=== PATIENT | female | born 1955 | race Caucasian/White ===

== ENCOUNTER 2020-03-02 07:19 | Outpatient (REF) | payer MEDICARE, SELFPAY ==
[2020-03-02 11:45] LABS: Alanine Aminotransferase 27 U/L (0-31); Anion Gap 15 (12-20); Aspartate Amino Transferase 18 U/L (5-31); Blood Urea Nitrogen 11 mg/dL (9-16); Carbon Dioxide 31 mmol/L (22-29); Chloride 99 mmol/L (96-108); Cholesterol 212 mg/dL; Estimated Glomerular Filt Rate > 60; Glucose Fasting 173 mg/dL (60-99); HDL Cholesterol 35 mg/dL; LDL Cholesterol Calculated 132 mg/dl; Potassium 4.5 mmol/l (3.3-5.1); Sodium 140 mmol/L (135-145); Triglycerides 228 mg/dL
[2020-03-02 12:06] LABS: Vitamin D 25-OH Total 39.5 ng/mL (>30)
== END 2020-03-02 07:20 | disposition home or self-care (01) ==
LOC: HO.HMGCLDS 07:19
PROVIDERS: PCP Internal Medicine; Visit Provider Internal Medicine
DX: E11.65 Type 2 diabetes mellitus with hyperglycemia (principal); E78.5 Hyperlipidemia, unspecified
CPT/HCPCS: 80048; 80061; 82306; 84450; 84460

== ENCOUNTER 2020-03-06 12:40 | Outpatient (REF) | payer MEDICARE, SELFPAY ==
[2020-03-06 14:06] LABS: MANUAL DIFF FLAG NO
[2020-03-06 14:11] LABS: Basophils Absolute Auto 0.1 X10*3/uL (0.0-0.2); Basophils Percent Auto 0.6 % (0-2); Eosinophils Absolute Auto 0.3 X10*3/uL (0.0-0.4); Eosinophils Percent Auto 2.8 % (0-4); Hematocrit 48.6 % (37-47); Hemoglobin 16.5 g/dl (12.0-16.0); Imm Gran Abs Auto 0.05 X10*3/uL (0.00-0.03); Imm Gran Pct Auto 0.4 % (0.0-0.4); Lymphocytes Absolute Auto 3.5 X10*3/uL (1.2-4.9); Lymphocytes Percent Auto 30.2 % (20-40); Mean Corpuscular Hemoglobin 31.5 pg (27.0-33.0); Mean Corpuscular Volume 92.9 fL (80-98); Mean Platelet Volume 11.5 fL (9.4-12.3); Monocytes Absolute Auto 0.9 X10*3/uL (0.1-1.2); Monocytes Percent Auto 7.7 % (2-11); Neutrophils Absolute Auto 6.7 X10*3/uL (2.0-8.3); Neutrophils Percent Auto 58.3 % (45-73); Platelet Count 202 X10*3/uL (160-400); Red Blood Count 5.23 X10*6/uL (4.20-5.50); Red Cell Distribution Width 11.9 % (11.0-16.0); White Blood Count 11.6 X10*3/uL (4.8-10.8)
== END 2020-03-06 12:41 | disposition home or self-care (01) ==
LOC: HO.HMGCLDS 12:40
PROVIDERS: PCP Internal Medicine; Visit Provider Internal Medicine
DX: Z86.2 Personal history of diseases of the blood and blood-forming organs and certain disorders involving the immune mechanism (principal)
CPT/HCPCS: 36415; 85025

== ENCOUNTER 2020-05-29 06:57 | Outpatient (REF) | payer MEDICARE, SELFPAY ==
[2020-05-29 12:07] LABS: Alanine Aminotransferase 29 U/L (0-31); Anion Gap 20 (12-20); Aspartate Amino Transferase 19 U/L (5-31); Blood Urea Nitrogen 16 mg/dL (9-16); Calcium 9.5 mg/dL (8.4-10.2); Carbon Dioxide 26 mmol/L (22-29); Chloride 100 mmol/L (96-108); Cholesterol 187 mg/dL; Estimated Glomerular Filt Rate > 60; Glucose Fasting 170 mg/dL (60-99); HDL Cholesterol 32 mg/dL; LDL Cholesterol Calculated 126 mg/dl; Potassium 4.8 mmol/l (3.3-5.1); Sodium 141 mmol/L (135-145); Triglycerides 146 mg/dL
[2020-05-29 12:25] LABS: Estimated Average Glucose 160 mg/dL; Hemoglobin A1c % 7.2 %
[2020-05-29 12:30] LABS: Vitamin D 25-OH Total 42.7 ng/mL (>30)
[2020-05-29 13:34] LABS: Creatinine Urine 76.47 mg/dL; Microalbum/Creatinine Ratio Ur 9.1 ug/mg cr
== END 2020-05-29 06:58 | disposition home or self-care (01) ==
LOC: HO.HMGCLDS 06:57
PROVIDERS: PCP Internal Medicine; Visit Provider Internal Medicine
DX: I10 Essential (primary) hypertension (principal); E11.3293 Type 2 diabetes mellitus with mild nonproliferative diabetic retinopathy without macular edema, bilateral; E78.2 Mixed hyperlipidemia; E66.9 Obesity, unspecified; M85.88 Other specified disorders of bone density and structure, other site; Z78.0 Asymptomatic menopausal state
CPT/HCPCS: 36415; 80048; 80061; 82043; 82306; 83036; 84450; 84460

== ENCOUNTER 2020-09-04 07:24 | Outpatient (REF) | payer MEDICARE, SELFPAY ==
[2020-09-04 11:59] LABS: Alanine Aminotransferase 23 U/L (0-31); Anion Gap 16 (12-20); Aspartate Amino Transferase 15 U/L (5-31); Blood Urea Nitrogen 12 mg/dL (9-16); Calcium 9.1 mg/dL (8.4-10.2); Carbon Dioxide 27 mmol/L (22-29); Chloride 100 mmol/L (96-108); Cholesterol 197 mg/dL; Estimated Glomerular Filt Rate > 60; Glucose Fasting 187 mg/dL (60-99); HDL Cholesterol 32 mg/dL; LDL Cholesterol Calculated 128 mg/dl; Potassium 4.5 mmol/L (3.3-5.1); Sodium 138 mmol/L (135-145); Triglycerides 186 mg/dL
[2020-09-04 12:02] LABS: Estimated Average Glucose 163 mg/dL; Hemoglobin A1c % 7.3 %
== END 2020-09-04 07:25 | disposition home or self-care (01) ==
LOC: HO.HMGCLDS 07:24
PROVIDERS: PCP Internal Medicine; Visit Provider Internal Medicine
DX: E11.3293 Type 2 diabetes mellitus with mild nonproliferative diabetic retinopathy without macular edema, bilateral (principal); E78.2 Mixed hyperlipidemia; I10 Essential (primary) hypertension
CPT/HCPCS: 36415; 80048; 80061; 83036; 84450; 84460; 84681

== ENCOUNTER 2020-10-23 07:19 | Outpatient (REF) | payer MEDICARE, SELFPAY ==
--- NOTE | ~2020-10-23 | MM_ITS ---
EXAMINATION: MM SCREENING DIGITAL BREAST TOMOSYNTHESIS, BILATERAL CLINICAL INFORMATION: Screening. Asymptomatic. The lifetime risk of breast cancer based on the Tyrer-Cuzick Model is 5%. COMPARISON: Mammography: 06/22/2019, 03/03/2018, 04/28/2016 TECHNIQUE: Digital breast tomosynthesis is performed in both the craniocaudal and mediolateral oblique views along with computer-aided detection (CAD). Synthesized 2D images are generated from the tomosynthesis. FINDINGS: The breasts are almost entirely fatty (ACR BI-RADS breast composition Category a). Background stromal and fibroglandular densities are stable. Again, there are scattered bilateral punctate round predominantly dermal calcifications. There are no significant masses, abnormal calcifications, or other abnormalities. Parenchymal pattern is similar to prior studies. There are no significant changes. MM/MM tomosynthesis screening BI IMPRESSION: No mammographic evidence of malignancy. ASSESSMENT: BI-RADS 2: Benign RECOMMENDATION: Routine annual mammography screening. This patient's information was entered into a reminder system with a target due date for their next mammogram.
--- NOTE | ~2020-10-23 | MM_ITS ---
EXAMINATION: BONE DENSITOMETRY CLINICAL INDICATION: Screening. COMPARISON: Previous BD dated 05/01/2018 and baseline BD dated 04/28/2016. TECHNIQUE: Using a [employer] DXA System (software version: 13.1) manufactured by [employer], dual-energy x-ray absorptiometry was performed of the lumbar spine and left hip. The images are of good technical quality. Summary results are attached. FINDINGS: AP SPINE L1-L4 (excluding L2 and L3): The data of L1-L4 has been changed to exclude the L2 and L3 vertebral bodies, because degenerative sclerosis at these levels may cause overestimation of lumbar spine density. Current: BMD 0.803 g/cm2, Z-score -2.4, T-score -3.0, osteoporosis, 13.6% decrease from previous, 9.4% decrease from baseline (<5% change is not significant). Prior: BMD 0.929 g/cm2. Baseline: BMD 0.886 g/cm2. LEFT FEMUR, NECK: Current: BMD 0.782 g/cm2, Z-score -1.0, T-score -1.8, osteopenia. Prior: BMD 0.811 g/cm2. Baseline: BMD 0.888 g/cm2. LEFT FEMUR, TOTAL: Current: BMD 0.854 g/cm2, Z-score -0.7, T-score -1.2, osteopenia, 3.9% decrease from previous, 8.8% decrease from baseline (<5% change is not significant). Prior: BMD 0.889 g/cm2. Baseline: BMD 0.936 g/cm2. IDENTIFIED RISK FACTORS: Early menopause, tobacco use (current smoker), secondary osteoporosis. HISTORY OF FRACTURE: None listed. MEDICATIONS: Vitamin D. MM/XR DEXA axial skeleton IMPRESSION: 1. DIAGNOSIS: Osteoporosis based on the lowest T-score value of -3.0 in the lumbar spine applying World Health Organization criteria. 2. 10-YEAR FRACTURE RISK PREDICTION, FRAX: Major osteoporotic fracture (clinical spine, forearm, hip or shoulder) 9.5%. Hip fracture 1.9%. 3. Treatment Recommendations: NOF guidelines recommend consideration for treatment in postmenopausal women and men age 50 and older presenting with the following: -A hip or vertebral (clinical or morphometric) fracture. -T-score less than or equal to -2.5 at the femoral neck or spine after appropriate evaluation to exclude secondary causes. -Low bone mass at the hip or spine and a 10-year fracture probability by FRAX of greater than or equal to 3% for hip fracture or greater than or equal to 20% for major osteoporotic fracture based on the [place] adapted WHO algorithm. 4. Other Recommendations: All treatment decisions require clinical judgment and consideration of individual patient factors, including patient preferences, comorbidities, previous drug use, risk factors not captured in the FRAX model (e.g. frailty, falls, vitamin D deficiency, increased bone turnover, interval significant decline in bone density) and possible under or overestimation of fracture risk by FRAX. Additional medical evaluation for secondary cause of low bone mineral density may be appropriate. FUTURE SCAN RECOMMENDATION: People with diagnosed cases of osteoporosis or at high risk for fracture should have regular bone mineral density tests. For patients eligible for Medicare, routine testing is allowed once every 2 years. The testing frequency can be increased to one year for patients who have rapidly progressing disease, those who are receiving or discontinuing medical therapy to restore bone mass, or have additional risk factors.
== END 2020-10-23 07:20 | disposition home or self-care (01) ==
LOC: HO.MAMMO 07:19
PROVIDERS: PCP Internal Medicine; Visit Provider Internal Medicine
DX: Z12.31 Encounter for screening mammogram for malignant neoplasm of breast (principal); Z13.820 Encounter for screening for osteoporosis; M81.0 Age-related osteoporosis without current pathological fracture; F17.200 Nicotine dependence, unspecified, uncomplicated; Z78.0 Asymptomatic menopausal state; Z79.899 Other long term (current) drug therapy
CPT/HCPCS: 77063; 77067; 77080

== ENCOUNTER 2020-11-10 06:51 | Outpatient (REF) | payer MEDICARE, SELFPAY ==
[2020-11-10 11:58] LABS: Alanine Aminotransferase 19 U/L (0-31); Anion Gap 15 (12-20); Aspartate Amino Transferase 16 U/L (5-31); Blood Urea Nitrogen 12 mg/dL (9-16); Carbon Dioxide 26 mmol/L (22-29); Chloride 104 mmol/L (96-108); Cholesterol 207 mg/dL; Estimated Glomerular Filt Rate > 60; Glucose Fasting 186 mg/dL (60-99); HDL Cholesterol 34 mg/dL; LDL Cholesterol Calculated 139 mg/dl; Potassium 4.6 mmol/L (3.3-5.1); Sodium 140 mmol/L (135-145); Triglycerides 174 mg/dL
[2020-11-10 12:17] LABS: Estimated Average Glucose 157 mg/dL; Hemoglobin A1c % 7.1 %
== END 2020-11-10 06:52 | disposition home or self-care (01) ==
LOC: HO.HMGCLDS 06:51
PROVIDERS: PCP Internal Medicine; Visit Provider Internal Medicine
DX: E78.2 Mixed hyperlipidemia (principal); I10 Essential (primary) hypertension
CPT/HCPCS: 36415; 80048; 80061; 83036; 84450; 84460

== ENCOUNTER 2021-01-01 08:42 | Outpatient (REF) | payer MEDICARE, SELFPAY ==
--- NOTE | ~2021-01-01 | XR_ITS ---
EXAMINATION: XR CHEST CLINICAL INFORMATION: Shortness of breath COMPARISON: Chest radiographs 11/21/2019, 08/18/2014 TECHNIQUE: 2 views of the chest were obtained. FINDINGS: The lungs are clear and there is no airspace consolidation, groundglass opacity, pneumothorax, pleural reaction. The costophrenic sulci are well-defined. Tapering right cardiophrenic angle likely areolar tissue is stable from prior exams. The heart is normal in size. The vascularity is normal. The hilar and mediastinal contours and bony structures are unremarkable. XR/XR chest 2V IMPRESSION: No acute intrathoracic disease.
== END 2021-01-01 08:43 | disposition home or self-care (01) ==
LOC: HO.HMGCX 08:42
PROVIDERS: PCP Internal Medicine; Visit Provider Internal Medicine
DX: R06.02 Shortness of breath (principal)
CPT/HCPCS: 71046

== ENCOUNTER 2021-03-29 06:54 | Outpatient (REF) | payer MEDICARE, SELFPAY ==
[2021-03-29 12:17] LABS: Estimated Average Glucose 140 mg/dL; Hemoglobin A1c % 6.5 %
[2021-03-29 12:33] LABS: Vitamin D 25-OH Total 48.1 ng/mL (>30)
[2021-03-29 12:35] LABS: Alanine Aminotransferase 15 U/L (0-31); Anion Gap 13 (12-20); Aspartate Amino Transferase 13 U/L (5-31); Blood Urea Nitrogen 9 mg/dL (9-16); Calcium 9.1 mg/dL (8.4-10.2); Carbon Dioxide 29 mmol/L (22-29); Chloride 102 mmol/L (96-108); Cholesterol 208 mg/dL; Estimated Glomerular Filt Rate > 60; Glucose Fasting 135 mg/dL (60-99); HDL Cholesterol 33 mg/dL; LDL Cholesterol Calculated 136 mg/dl; Potassium 4.4 mmol/L (3.3-5.1); Sodium 140 mmol/L (135-145); Triglycerides 196 mg/dL
== END 2021-03-29 06:55 | disposition home or self-care (01) ==
LOC: HO.HMGCLDS 06:54
PROVIDERS: PCP Internal Medicine; Visit Provider Internal Medicine
DX: E11.3293 Type 2 diabetes mellitus with mild nonproliferative diabetic retinopathy without macular edema, bilateral (principal); E78.2 Mixed hyperlipidemia; M81.0 Age-related osteoporosis without current pathological fracture; Z78.0 Asymptomatic menopausal state; I10 Essential (primary) hypertension
CPT/HCPCS: 36415; 80048; 80061; 82306; 83036; 84450; 84460

== ENCOUNTER 2021-05-04 08:18 | Outpatient (REF) | payer MEDICARE, SELFPAY ==
--- NOTE | ~2021-05-04 | XR_ITS ---
EXAMINATION: XR SHOULDER, RIGHT CLINICAL INFORMATION: Right shoulder pain. COMPARISON: Report from right shoulder radiographs dated 09/29/2012. TECHNIQUE: AP external rotation, Grashey, scapular Y, and axillary views of the right shoulder. FINDINGS: No acute fracture or dislocation. Camy-en-rgxhwczr glenohumeral joint space narrowing with small marginal osteophytes. Tiny lateral subacromial spurs. No osseous erosion. XR/XR shoulder RT min 2V IMPRESSION: Pkwg-dr-nodkhpri glenohumeral osteoarthritis. Tiny lateral subacromial spurs.
== END 2021-05-04 08:19 | disposition home or self-care (01) ==
LOC: HO.HOSX 08:18
PROVIDERS: Visit Provider Physician Assistant
DX: M75.101 Unspecified rotator cuff tear or rupture of right shoulder, not specified as traumatic (principal)
CPT/HCPCS: 73030; 99202

== ENCOUNTER → 2021-05-13 10:16 | Outpatient (BNVA) | payer MEDICARE, SELFPAY | PROVIDERS: PCP Internal Medicine; Visit Provider Internal Medicine | DX: M81.0 Age-related osteoporosis without current pathological fracture (principal); E55.9 Vitamin D deficiency, unspecified; D35.02 Benign neoplasm of left adrenal gland | CPT/HCPCS: Q3014 ==

== ENCOUNTER 2021-05-19 07:33 | Outpatient (REF) | payer MEDICARE, SELFPAY ==
[2021-05-19 08:58] LABS: Estimated Average Glucose 143 mg/dL; Hemoglobin A1c % 6.6 %
[2021-05-19 09:15] LABS: Alanine Aminotransferase 22 U/L (0-31); Albumin Level 4.9 g/dL (3.5-5.0); Alkaline Phosphatase 88 U/L (39-117); Anion Gap 14 (12-20); Aspartate Amino Transferase 13 U/L (5-31); Bilirubin Total 0.7 mg/dL (0.0-1.0); Blood Urea Nitrogen 9 mg/dL (9-16); Carbon Dioxide 29 mmol/L (22-29); Chloride 101 mmol/L (96-108); Cholesterol 225 mg/dL; Estimated Glomerular Filt Rate > 60; Glucose Fasting 146 mg/dL (60-99); HDL Cholesterol 34 mg/dL; LDL Cholesterol Calculated 151 mg/dl; Phosphorus 3.8 mg/dL (2.7-4.5); Potassium 4.2 mmol/L (3.3-5.1); Sodium 140 mmol/L (135-145); Total Protein 7.7 g/dL (6.5-8.0); Triglycerides 200 mg/dL
[2021-05-19 09:27] LABS: Free T4 (Free Thyroxine) 1.08 ng/dL (0.71-1.85); Thyroid Stimulating Hormone 2.17 uIU/mL (0.32-4.0); Vitamin D 25-OH Total 52.2 ng/mL (>30)
[2021-05-20 12:26] LABS: Calcium (PTHI) 9.8 mg/dL (8.6-10.4); PTHI 17 pg/mL (14-64)
[2021-05-20 17:06] LABS: Prot Elec - Albumin 4.6 g/dL (3.8-4.8); Prot Elec - Alpha1 0.4 g/dL (0.2-0.3); Prot Elec - Alpha2 0.9 g/dL (0.5-0.9); Prot Elec - Beta 1 0.4 g/dL (0.4-0.6); Prot Elec - Beta 2 0.4 g/dL (0.2-0.5); Prot Elec - Gamma 0.8 g/dL (0.8-1.7); Prot Elec - Total Protein 7.4 g/dL (6.1-8.1)
[2021-05-20 21:52] LABS: Adrenocorticotropic Hormone 17 pg/mL (6-50)
[2021-05-22 02:16] LABS: DHEA Sulfate 172 mcg/dL (12-133)
[2021-05-23 21:52] LABS: Alkaline Phosphatase Bone 14.5 mcg/L (5.6-29.0)
[2021-05-24 13:41] LABS: Calcium, Ionized 4.9 mg/dL (4.8-5.6)
[2021-05-25 05:06] LABS: N-Telopeptide 22 (see note); NTXCreaRU 23 mg/dL (20-275)
[2021-05-27 11:21] LABS: Renin 0.65 ng/mL/h (0.25-5.82)
== END 2021-05-19 07:34 | disposition home or self-care (01) ==
LOC: HO.LAB 07:33
PROVIDERS: PCP Internal Medicine; Visit Provider Internal Medicine
DX: E11.3293 Type 2 diabetes mellitus with mild nonproliferative diabetic retinopathy without macular edema, bilateral (principal); I10 Essential (primary) hypertension; D35.02 Benign neoplasm of left adrenal gland; E78.2 Mixed hyperlipidemia; E66.9 Obesity, unspecified; E55.9 Vitamin D deficiency, unspecified; M81.0 Age-related osteoporosis without current pathological fracture
CPT/HCPCS: 36415; 80048; 80053; 80061; 82024; 82088; 82306; 82330; 82523; 82533; 82627; 83036; 83835; 83970; 84075; 84100; 84165; 84244; 84439; 84443

== ENCOUNTER 2021-05-20 07:33 | Outpatient (REF) | payer MEDICARE, SELFPAY ==
--- NOTE | ~2021-05-20 | CT_ITS ---
EXAMINATION: CT ABDOMEN WITHOUT AND WITH CONTRAST CLINICAL INFORMATION: Benign neoplasm of left adrenal gland. COMPARISON: CT abdomen 12/26/2019. TECHNIQUE: Adrenal protocol CT abdomen without and with intravenous contrast was performed. 85 mL Omnipaque 350 administered intravenously without complication. This CT examination was performed using dose optimization techniques as appropriate, variously including the following: *Automated exposure control *Adjustment of mA and/or kV according to patient size (this includes techniques or standardized protocols for targeted exams where dose is matched to indication/reason for exam; i.e. extremities or head) *Use of iterative reconstruction technique DLP: 420 mGy-cm FINDINGS: LUNG BASES: Mosaic groundglass changes again seen at the lung base without significant change. No focal nodule. LIVER, GALLBLADDER, AND BILIARY TREE: The imaged portion of the liver appears normal. There is no focal liver mass. No ductal dilatation. Phrygian cap of the gallbladder. No discrete cholelithiasis. The common bile duct is normal in caliber. PANCREAS: Unremarkable. SPLEEN: Unremarkable. ADRENAL GLANDS AND KIDNEYS: 1 cm nodule in the left adrenal gland measuring -12 HU noncontrast, 54 HU portal venous phase, 9 HU delayed phase imaging. The relative washout is 83%. The absolute washout is 68%. All features consistent with a lipid rich adenoma. The size of the nodule is unchanged compared to prior. There are simple cysts in the kidneys. No imaging follow-up recommended. The nephrograms are symmetric. No nephrolithiasis or hydronephrosis. BOWEL LOOPS: Stomach is unremarkable. The included segments of small and large bowel appear normal. LYMPH NODES: No adenopathy. VASCULAR: Mild atherosclerosis of the abdominal aorta. No aneurysm. BONES: Mild degenerative changes in the spine. CT/CT abdomen wo/w con IMPRESSION: Stable size of benign left adrenal adenoma. No imaging follow-up is recommended. Fleischner guidelines were followed.
[2021-05-20] MEDS: iohexoL 350 MG/ML 100 ML INFUS..BTL IV (08:37)
== END 2021-05-20 07:34 | disposition home or self-care (01) ==
LOC: HO.CT 07:33
PROVIDERS: Visit Provider Internal Medicine
DX: D35.02 Benign neoplasm of left adrenal gland (principal)
CPT/HCPCS: 74170; Q9967

== ENCOUNTER 2021-05-25 11:28 | Outpatient (REF) | payer MEDICARE, SELFPAY ==
[2021-05-25 12:51] LABS: Creatinine, mg/dL 25.59
[2021-05-25 13:12] LABS: Creatinine, 24Hr Urine 0.8 G/Day (1.0-2.0); Total Volume 24 Hour Urine 3000 mL
[2021-05-27 18:21] LABS: Calcium, 24 Hr Urine 135 mg/24 h; Calcium/Creatinine Ratio 167 mg/g creat (30-275); Creatinine 24Hr Urine 0.81 g/24 h (0.50-2.15)
[2021-05-28 21:52] LABS: Cortisol Free, 24 Hr Urine 6.5 mcg/24 h (4.0-50.0); Creatinine, 24 Hr Urine 0.82 g/24 h (0.50-2.15); Total Volume, 24 Hr Urine 3000 mL
[2021-05-31 16:06] LABS: Metanephrine, Free 24U 43 mcg/24 h (90-315); Normetanephrine, Free 24U 376 mcg/24 h (122-676); Total Metanephrine, Free 24U 419 mcg/24 h (224-832); Total Volume 24U 3000 mL
[2021-06-02 16:31] LABS: CATF, 24 Ur Volume 3000 mL; CATF-24Ur Creatinine 0.84 g/24 h (0.50-2.15); Catecholamines,Tot. (E+NE) 24U 43 mcg/24 h (26-121); Dopamine, 24 Ur 158 mcg/24 h (52-480); Norepinephrine, 24 Ur 43 mcg/24 h (15-100)
[2021-06-03 00:58] LABS: Aldosterone, 24Hr Urine <1.5 mcg/24 h; Creatinine 24Hr Urine 0.81 g/24 h (0.50-2.15); Total Volume 3000 mL
== END 2021-05-25 11:29 | disposition home or self-care (01) ==
LOC: HO.LNP 11:28
PROVIDERS: Visit Provider Internal Medicine
DX: D35.02 Benign neoplasm of left adrenal gland (principal); M81.0 Age-related osteoporosis without current pathological fracture
CPT/HCPCS: 82088; 82340; 82384; 82530; 82570; 83835

== ENCOUNTER → 2021-06-18 09:31 | Outpatient (BNVA) | payer MEDICARE, SELFPAY | PROVIDERS: PCP Internal Medicine; Visit Provider Physician Assistant | DX: M75.101 Unspecified rotator cuff tear or rupture of right shoulder, not specified as traumatic (principal) | CPT/HCPCS: 99212 ==

== ENCOUNTER 2021-06-18 10:25 | Outpatient (REF) | payer MEDICARE, SELFPAY ==
[2021-06-18 11:16] LABS: Alanine Aminotransferase 16 U/L (0-31); Aspartate Amino Transferase 12 U/L (5-31)
[2021-06-18 11:37] LABS: Vitamin D 25-OH Total 52.1 ng/mL (>30)
[2021-06-22 17:13] LABS: Metanephrine, Free <25 pg/mL (<=57); Normetanephrines, Free 185 pg/mL (<=148); Total Metanephrine, Free 185 pg/mL (<=205)
== END 2021-06-18 10:26 | disposition home or self-care (01) ==
LOC: HO.10HDL 10:25
PROVIDERS: Internal Medicine; Visit Provider Internal Medicine
DX: E11.3293 Type 2 diabetes mellitus with mild nonproliferative diabetic retinopathy without macular edema, bilateral (principal); E66.9 Obesity, unspecified; E78.2 Mixed hyperlipidemia; I10 Essential (primary) hypertension; D35.02 Benign neoplasm of left adrenal gland; E55.9 Vitamin D deficiency, unspecified; M75.101 Unspecified rotator cuff tear or rupture of right shoulder, not specified as traumatic
CPT/HCPCS: 36415; 82306; 83835; 84450; 84460

== ENCOUNTER → 2021-06-24 10:25 | Outpatient (BNVA) | payer MEDICARE, SELFPAY | PROVIDERS: PCP Internal Medicine; Visit Provider Internal Medicine | DX: M81.0 Age-related osteoporosis without current pathological fracture (principal); E55.9 Vitamin D deficiency, unspecified; D35.02 Benign neoplasm of left adrenal gland | CPT/HCPCS: 99212 ==

== ENCOUNTER 2021-06-28 07:04 | Outpatient (REF) | payer MEDICARE, SELFPAY ==
[2021-06-28 09:30] LABS: Cortisol Random < 1.0 ug/dL
[2021-06-29 23:56] LABS: Adrenocorticotropic Hormone <5 pg/mL (6-50)
[2021-07-07 13:11] LABS: Dexamethasone 391 ng/dL
[2021-07-07 15:51] LABS: Catecholamine Frac, Total 684 pg/mL
== END 2021-06-28 07:05 | disposition home or self-care (01) ==
LOC: HO.LAB 07:04
PROVIDERS: PCP Internal Medicine; Visit Provider Internal Medicine
DX: D35.02 Benign neoplasm of left adrenal gland (principal)
CPT/HCPCS: 36415; 80299; 82024; 82384; 82533

== ENCOUNTER 2021-07-05 08:45 | Outpatient (REF) | payer MEDICARE, SELFPAY ==
--- NOTE | ~2021-07-05 | MR_ITS ---
EXAMINATION: MR SHOULDER WITHOUT CONTRAST, RIGHT CLINICAL INFORMATION: Shoulder pain. Evaluate rotator cuff tear. COMPARISON: X-ray 05/04/2021 TECHNIQUE: MRI of the shoulder without contrast was performed on a high-field scanner. FINDINGS: ROTATOR CUFF: Mild supraspinatus tendinosis. Slightly more confluent signal, questionable small intrasubstance tear in insertional anterior fibers. Mild articular surface fraying in the conjoined supraspinatus/infraspinatus fibers. Teres minor is intact. Wusy-kq-sqbzlzkq subscapularis tendinosis with deep surface fraying. No muscle atrophy or fatty infiltration. BICEPS: Mild proximal biceps tendinosis. CORACOACROMIAL ARCH: The undersurface of the acromion is mildly curved with minimal subacromial spurring. Mild acromioclavicular arthritis. Small fluid in the subacromial subdeltoid space. LABRUM/CAPSULE: Small caliber posterior labrum. No focal displaced labral tear is seen. Mild increased signal and thickening of the inferior capsule. GLENOHUMERAL JOINT/MARROW: Mild reactive/degenerative edema in the greater tuberosity. No fracture. Mild glenohumeral joint arthritis. MR/MR shoulder RT wo con IMPRESSION: 1. Mild supraspinatus tendinosis. Questionable small intrasubstance tear in the distal anterior fibers. Mild articular surface fraying in the conjoined supraspinatus/infraspinatus fibers. 2. Mild to moderate subscapularis tendinosis with deep surface fraying. 3. Mild proximal biceps tendinosis. 4. Mild subacromial subdeltoid bursitis. 5. Inferior capsular findings could be related to sprain or capsulitis in the appropriate clinical circumstance. 6 . Mild glenohumeral joint arthritis.
== END 2021-07-05 08:46 | disposition home or self-care (01) ==
LOC: HO.MRI 08:45
PROVIDERS: Visit Provider Physician Assistant
DX: M75.101 Unspecified rotator cuff tear or rupture of right shoulder, not specified as traumatic (principal)
CPT/HCPCS: 73221

== ENCOUNTER 2021-07-15 14:00 | Outpatient (RCR) | payer MEDICARE, SELFPAY ==
--- NOTE | 2021-05-27 16:46 | MHC.PT.EP ---
[facility] [place] Office [place] Office [place] Office [address] Kisha Argueta [address] [phone] F: [phone] F: [phone] F: [phone] F: [phone] Physical Therapy Plan of Care Date of Evaluation: Date of Surgery: Diagnosis: R shoulder RTC tear, arc syndrome R shoulder. Assessment: Pt is a LHD referred to PT for female referred to PT for eval and treat of R shoulder RTC tear/ arc syndrome resulting in decreased tolerance for reaching high shelves, washing and brushing her hair, dressing pullovers, lifting and carrying objects of weight, and reaching her back for hygiene and dressing secondary to decreased R shoulder ROM and strength, decreased posture, sedentary lifestyle, and pain. Pt is deemed an appropriate candidate to receive skilled PT in order to address her physical limitations to improve her functional ability. Frequency and Duration: The patient will be seen 2 x/ wk x 5 wks. Short Term Goals: Initiate HEP with evidence of compliance. improve baseline pain with activity to < 6/10, initial: 10/10. improve shoulder flexion ROM to at least 165 degrees; initial 130. Fpc Goals: I with HEP. Pt will improve SPADI questionnaire bu at least 13 points in order to demonstrate improved function. Pt will be able to brush her hair with managed Sx; initial: 10/10 pain. Pt will report able to dress pullovers and braziers with managed Sx. Treatment Plan: Modalities to reduce pain, spasms and effusion. Manual therapy to restore motion and function. Therapeutic exercise to improve strength and flexibility. Neuromuscular re-education for posture and balance. Therapeutic activities to return to functional activities of daily living. Electronically signed by: Edward Mckeon PT. Please sign and return to therapist. Thank you for your referral.
--- NOTE | 2021-07-15 16:44 | MHC.PT.DC ---
[facility] [place] Office [place] Office [place] Office [address] Timothy Argueta [address] [phone] F: [phone] F: [phone] F: [phone] F: [phone] Physical Therapy Discharge Report Diagnosis: R shoulder RTC tear, arc syndrome R shoulder. Date of Surgery: Date of Evaluation: 05/27/21 Date of Discharge: 07/15/21 Treatments to Date: 11 Cancellations to Date: No Shows to Date: Discharge Status: Achieved most of her Goals Improved Function Independent with HEP Patient Elected to Stop Discharge Summary: Ju has been an active participant in her therapy in and out of the clinic and has met many of her therapeutic goals though brushing and washing her hair is still challenging though improving (3 ft long hair). She is improved of her ROM and strength an I with her home program. Her shoulder pain and disability questionnaire improved from 65% to 26%; Though Pt has not met all of her goals and has been progressing she requests DC today and will continue her HEP; therapy is in agreement. Electronically signed by: Edward Mckeon PT. Please sign and return to therapist. Thank you for your referral.
== END 2021-07-15 16:42 | disposition home or self-care (01) ==
LOC: HO.PTCHIC 14:00
PROVIDERS: PCP Internal Medicine; Visit Provider Physician Assistant
DX: M75.101 Unspecified rotator cuff tear or rupture of right shoulder, not specified as traumatic (principal)
CPT/HCPCS: 97014; 97033; 97110; 97162

== ENCOUNTER 2021-07-21 07:27 | Outpatient (REF) | payer MEDICARE, SELFPAY ==
[2021-07-22 10:27] LABS: Cortisol 30 Minute 22.7 mcg/dL; Cortisol 60 Minute 29.4 mcg/dL; Cortisol Baseline 8.5 mcg/dL
[2021-07-22 14:36] LABS: Adrenocorticotropic Hormone 24 pg/mL (6-50)
== END 2021-07-21 07:28 | disposition home or self-care (01) ==
LOC: HO.MDS 07:27
PROVIDERS: Visit Provider Internal Medicine
DX: E27.40 Unspecified adrenocortical insufficiency (principal)
CPT/HCPCS: 36415; 82024; 82533; 96374; J0834

== ENCOUNTER → 2021-07-22 14:31 | Outpatient (BNVA) | payer MEDICARE, SELFPAY | PROVIDERS: PCP Internal Medicine; Visit Provider Physician Assistant | DX: M75.101 Unspecified rotator cuff tear or rupture of right shoulder, not specified as traumatic (principal) | CPT/HCPCS: 99212 ==

== ENCOUNTER 2021-07-31 08:02 | Outpatient (REF) | payer MEDICARE, SELFPAY ==
[2021-07-31 11:34] LABS: Estimated Average Glucose 163 mg/dL; Hemoglobin A1c % 7.3 %
[2021-07-31 11:43] LABS: Creatinine Urine 31.37 mg/dL; Microalbumin Urine < 5.0 mg/L
[2021-07-31 11:46] LABS: Alanine Aminotransferase 21 U/L (0-31); Anion Gap 15 (12-20); Aspartate Amino Transferase 13 U/L (5-31); Blood Urea Nitrogen 8 mg/dL (9-16); Calcium 9.4 mg/dL (8.4-10.2); Carbon Dioxide 27 mmol/L (22-29); Chloride 101 mmol/L (96-108); Cholesterol 212 mg/dL; Estimated Glomerular Filt Rate > 60; Glucose Fasting 183 mg/dL (60-99); HDL Cholesterol 34 mg/dL; LDL Cholesterol Calculated 136 mg/dl; Potassium 4.2 mmol/L (3.3-5.1); Sodium 139 mmol/L (135-145); Triglycerides 212 mg/dL
== END 2021-07-31 08:03 | disposition home or self-care (01) ==
LOC: HO.HMGCLDS 08:02
PROVIDERS: PCP Internal Medicine; Visit Provider Internal Medicine
DX: E11.3293 Type 2 diabetes mellitus with mild nonproliferative diabetic retinopathy without macular edema, bilateral (principal); E78.2 Mixed hyperlipidemia
CPT/HCPCS: 36415; 80048; 80061; 82043; 82550; 83036; 84450; 84460

== ENCOUNTER → 2021-08-04 10:32 | Outpatient (BNVA) | payer MEDICARE, SELFPAY | PROVIDERS: PCP Internal Medicine; Visit Provider Internal Medicine | DX: M81.0 Age-related osteoporosis without current pathological fracture (principal); E55.9 Vitamin D deficiency, unspecified; D35.02 Benign neoplasm of left adrenal gland; R00.0 Tachycardia, unspecified | CPT/HCPCS: 99212 ==

== ENCOUNTER 2021-08-19 14:27 | Outpatient (REF) | payer MEDICARE, SELFPAY ==
[2021-08-19 16:41] LABS: D Dimer High Sensitivity < 150 NG/ML
== END 2021-08-19 14:28 | disposition home or self-care (01) ==
LOC: HO.HMGCLDS 14:27
PROVIDERS: Visit Provider Physician Assistant
DX: R00.0 Tachycardia, unspecified (principal)
CPT/HCPCS: 36415; 84443; 85379

== ENCOUNTER 2021-10-25 07:33 | Outpatient (REF) | payer MEDICARE, SELFPAY ==
--- NOTE | ~2021-10-25 | MM_ITS ---
EXAMINATION: MM SCREENING DIGITAL BREAST TOMOSYNTHESIS, BILATERAL CLINICAL INFORMATION: Screening. Asymptomatic. The lifetime risk of breast cancer based on the Tyrer-Cuzick Model is 8%. COMPARISON: Mammography: 10/23/2020, 06/22/2019, 03/03/2018 TECHNIQUE: Digital breast tomosynthesis is performed in both the craniocaudal and mediolateral oblique views along with computer-aided detection (CAD). Synthesized 2D images are generated from the tomosynthesis. FINDINGS: There are scattered areas of fibroglandular density (ACR BI-RADS breast composition Category b). Breast tissue composition borders on predominantly fatty. Background stromal and fibroglandular densities are similar to prior studies. No developing density or architectural abnormality. There are no significant masses, abnormal calcifications, or other abnormalities. MM/MM tomosynthesis screening BI IMPRESSION: No mammographic evidence of malignancy. ASSESSMENT: BI-RADS 1: Negative RECOMMENDATION: Routine annual mammography screening. This patient's information was entered into a reminder system with a target due date for their next mammogram.
== END 2021-10-25 07:34 | disposition home or self-care (01) ==
LOC: HO.MAMMO 07:33
PROVIDERS: PCP Internal Medicine; Visit Provider Internal Medicine
DX: Z12.31 Encounter for screening mammogram for malignant neoplasm of breast (principal)
CPT/HCPCS: 77063; 77067

== ENCOUNTER → 2021-11-11 09:21 | Outpatient (BNVA) | payer MEDICARE, SELFPAY | PROVIDERS: PCP Internal Medicine; Referring Provider Internal Medicine; Visit Provider Internal Medicine Cardiovascular Disease | DX: R94.31 Abnormal electrocardiogram [ECG] [EKG] (principal); R00.0 Tachycardia, unspecified | CPT/HCPCS: 93005; 99202 ==

== ENCOUNTER → 2021-12-06 07:26 | Outpatient (REF) | payer MEDICARE, SELFPAY ==
--- NOTE | ~2021-12-06 | NM_ITS ---
Myocardial perfusion study Indication: Abnormal EKG to evaluate for myocardial ischemia Technique: The patient was brought in for a Lexiscan perfusion study on 12/06/2021. Patient performed low-level exercise and was injected 0.4 mg of Lexiscan intravenously. Within a minute of injection, 30 mCi of sestamibi was given intravenously. Images were obtained using the SPECT gamma camera interlaced with the gating device. Images were obtained in supine position. Resting perfusion study was performed on 12/08/2021. Patient was administered 30 mCi of sestamibi intravenously at rest. Images were then obtained in supine position. Images obtained with and without CT attenuation. Total DLP 100 mGy-cm. Images were processed with the software and compared side to side in short axis, horizontal long axis and vertical long axis views. Findings: The stress perfusion study showed non attenuated images show moderately reduced uptake in the apex of the LV myocardium. Remainder of the LV myocardium is normally perfused. Attenuated corrected images show mildly reduced uptake in the apex of the LV myocardium. The gated study shows normal LV systolic function with calculated LVEF of 71%. LV cavity is normal in size. The gated study shows normal systolic wall thickening and contraction of segments. Resting study shows both attenuated as well as non attenuated corrected images show improved uptake in the apex of the LV myocardium.. Gating at rest reveals normal systolic wall motion with ejection fraction at 69%. The findings are consistent with mild intensity apical ischemia. NM/NM gem perf SPECT rest & str Impression: 1. Myocardial perfusion imaging study shows apical ischemia 2. Gated LVEF is 69% 3. Transient ischemic dilatation not present EKG is nondiagnostic for ischemia
--- NOTE | 2021-12-06 07:30 | CA_ITS ---
Acquisition Time: 2021-12-06 08:07:07 Total Exercise Time: 00:02:00 Test Indications: Abnormal ECG DIABETES Medications: Protocol: LEXISCAN Max HR: 133 BPM 85% of Pred: 156 BPM Max BP: 126/078 mmHG Max Work Load: 1.6 METS Pharmacological stress test with Lexiscan injection, while walking slow on treadmill for 2 min with heart rate reaching 85% MPHR, without anginal symptoms, without arrythmia, with normotensive response to injection, with nondiagnostic EKG for ischemia, In recovery she continued to have elevated heart rate and was treated with aminophylline 75mg IVP to reverse Lexiscan with imoprovement in heart rate. Nuclear images pending. Test reviewed with Dr Rodriguez. Referred By: Supa Horta Overread By: ERIKA CROWLEY
== END ==
LOC: HO.CARD 07:26
PROVIDERS: PCP Internal Medicine; Visit Provider Internal Medicine Cardiovascular Disease
DX: E11.3293 Type 2 diabetes mellitus with mild nonproliferative diabetic retinopathy without macular edema, bilateral (principal); R94.31 Abnormal electrocardiogram [ECG] [EKG]
CPT/HCPCS: 78452; 93017; A9500; J0280; J2785

== ENCOUNTER → 2021-12-23 07:05 | Outpatient (REF) | payer MEDICARE, SELFPAY ==
--- NOTE | 2021-12-23 07:08 | HM_ITS ---
* Total monitoring time 3 days. * Underlying rhythm is sinus. * Average rate 106/Min. Range 75 to 148/Min. * About 70% the time, rate > 100/Min. * No evidence of atrial fibrillation or flutter or AV blocks or pauses. * Very rare supraventricular and ventricular ectopy with minimal burden. * No patient events. MTDD
--- NOTE | 2021-12-23 07:08 | CA_ITS ---
Transthoracic Echocardiogram Patient (Last, First, Middle): Claude Ngo S Gender: Female Date of : 1955 Age: 66 Procedure Date: 12/23/2021 Procedure Type: Transthoracic Echocardiogram Location: OP Height: 165.1 cm Weight: 90.72 kg BSA: 1.98 m2 Heart Rate: bpm BP: 110 / 70 mmHg Track Service Worker: TO Referring MD: Supa Horta MD Symptoms: R00.0 - Tachycardia, unspecified Study Quality: Adequate ECG Rhythm: Sinus Conclusions: - The left ventricular systolic function is normal. The calculated ejection fraction is 60% by biplane method. - No obvious valvular pathology seen on this study. Findings Left Ventricle Normal left ventricular cavity size. There is normal left ventricular wall thickness. The left ventricular systolic function is normal. The calculated ejection fraction is 60% by biplane method. There is no evidence of regional wall motion abnormalities. Diastolic function is normal for age. Right Ventricle Normal right ventricular cavity size and systolic function. Atria Both atria are normal in size. Aortic Valve There is a normal trileaflet aortic valve. There is mild calcification of the aortic valve. There is no aortic valve stenosis. There is no aortic valve regurgitation. Mitral Valve The mitral valve appears normal. There is no mitral valve regurgitation. There is no mitral valve stenosis. Pulmonic Valve The pulmonic valve is likely normal. Tricuspid Valve There is trace tricuspid valve regurgitation. The pulmonary artery systolic pressure is normal. Great Vessels The aortic annulus, sinuses of valsalva, and asc aorta are normal in size. Venous The inferior vena cava is mildly dilated and collapses greater than 50% with inspiration. Pericardium/Pleural There is no evidence of pericardial effusion. Prior Study Comparison No prior study available for comparison. Recommendations, Care & Conclusions No obvious valvular pathology seen on this study. Measurements 2D Linear Measurements IVSd: 0.91 0.6-0.9/0.6-1.0 cm LVIDd: 4.64 3.9-5.3/4.2-5.9 cm LVIDd Index: 2.34 2.4-3.2/2.2-3.1 cm/m2 LVIDs: 2.77 2.0-3.6 cm LVPWd: 0.91 0.7-1.1 cm LA Diam: 3.00 2.7-3.8/3.0-4.0 cm LAIDs Index: 1.52 1.5-2.3 cm/m2 LV Mass: 175.44 67-162/88-224 g LV Mass Index: 88.60 43-95/49-115 g/m2 LVOT Diam: 2.00 3.0+(-)1.3 cm 2D Systolic Function EF 4C: 57.50 >55% EF 2C: 64.00 >55% EF BiP: 60.40 >55% Mitral Valve MV Pk E: 0.71 MV PK A: 0.79 MV Decel Time: 203.00 E/A: 0.90 E'Lateral: 7.83 E'Medial: 9.36 E/E' Med: 7.60 E/E' Lat: 9.10 PHT: 59.00 MVA PHT: 3.73 Decel Garfield: 3.51 Aortic Valve AoV Pk Shahid: 1.33 AoV Mn Shahid: 0.84 AoV VTI: 0.24 AoV Pk Grad: 7.00 Aov Mn Grad: 3.00 NORIS Cont.VTI: 2.52 LVOT LVOT Pk Shahid: 1.01 LVOT Mn Shahid: 0.68 LVOT VTI: 0.20 LVOT Pk Grad: 4.00 LVOT Mn Grad: 2.00 LVOT Diam: 2.00 LVOT Area: 3.14 Diastolic Function MV Pk E: 0.71 MV Pk A: 0.79 E/A: 0.90 E'Medial: 9.36 E/E' Med: 7.60 E' Laterial: 7.83 E/E' Lat: 9.10 Right Ventricle TAPSE (mm): 20.70 TVS' Shahid: 12.00 Tricuspid Valve TR Pk Shahid: 1.41 TR Pk Grad: 8.00 RA Press: 8.00 RVSP: 16.00 Great Vessels Aorta Sinus of Valsalva: 3.52 2.0-3.[address] Ridge: 2.79 1.7-3.4 cm Ao Asc: 3.50 2.1-3.4 cm Updated in Other Vendor System with Status of Final Erlin Rodriguez MD electronically signed on 12/25/2021 11:11:06 AM with status of Final
== END ==
LOC: HO.CARD 07:05
PROVIDERS: PCP Internal Medicine; Visit Provider Internal Medicine Cardiovascular Disease
DX: R00.0 Tachycardia, unspecified (principal)
CPT/HCPCS: 93242; 93306

== ENCOUNTER 2022-01-14 11:32 | Outpatient (REF) | payer MEDICARE, SELFPAY ==
[2022-01-14 14:16] LABS: Anion Gap 19 (12-20); Blood Urea Nitrogen 12 mg/dL (9-16); Calcium 9.5 mg/dL (8.4-10.2); Carbon Dioxide 27 mmol/L (22-29); Chloride 98 mmol/L (96-108); Estimated Glomerular Filt Rate > 60; Glucose Random 178 mg/dL (60-115); Potassium 4.2 mmol/L (3.3-5.1); Sodium 140 mmol/L (135-145)
[2022-01-14 14:17] LABS: Estimated Average Glucose 163 mg/dL; Hemoglobin A1c % 7.3 %
== END 2022-01-14 11:33 | disposition home or self-care (01) ==
LOC: HO.HMGCLDS 11:32
PROVIDERS: PCP Internal Medicine; Visit Provider Internal Medicine Cardiovascular Disease
DX: E11.3293 Type 2 diabetes mellitus with mild nonproliferative diabetic retinopathy without macular edema, bilateral (principal); E66.9 Obesity, unspecified; E78.2 Mixed hyperlipidemia; R00.0 Tachycardia, unspecified; R94.39 Abnormal result of other cardiovascular function study
CPT/HCPCS: 36415; 80048; 83036

== ENCOUNTER → 2022-02-02 14:43 | Outpatient (BNVA) | payer MEDICARE, SELFPAY | PROVIDERS: PCP Internal Medicine; Visit Provider Internal Medicine Cardiovascular Disease | DX: R00.0 Tachycardia, unspecified (principal) | CPT/HCPCS: 93005; 99212 ==

== ENCOUNTER 2022-07-15 06:23 | Outpatient (REF) | payer MEDICARE, SELFPAY ==
[2022-07-15 11:51] LABS: Alanine Aminotransferase 34 U/L (0-31); Anion Gap 18 (12-20); Aspartate Amino Transferase 19 U/L (5-31); Blood Urea Nitrogen 10 mg/dL (9-16); Calcium 9.2 mg/dL (8.4-10.2); Carbon Dioxide 26 mmol/L (22-29); Chloride 100 mmol/L (96-108); Cholesterol 205 mg/dL; Estimated Glomerular Filt Rate > 60; Glucose Fasting 219 mg/dL (60-99); HDL Cholesterol 33 mg/dL; LDL Cholesterol Calculated 145 mg/dl; Potassium 4.6 mmol/L (3.3-5.1); Sodium 139 mmol/L (135-145); Triglycerides 139 mg/dL
[2022-07-15 12:00] LABS: Estimated Average Glucose 183 mg/dL
[2022-07-15 12:10] LABS: Vitamin D 25-OH Total 57.9 ng/mL (>30)
[2022-07-15 12:58] LABS: Creatinine Urine 17.55 mg/dL; Microalbumin Urine < 5.0 mg/L
== END 2022-07-15 06:24 | disposition home or self-care (01) ==
LOC: HO.HMGCLDS 06:23
PROVIDERS: Visit Provider Internal Medicine
DX: E11.3293 Type 2 diabetes mellitus with mild nonproliferative diabetic retinopathy without macular edema, bilateral (principal); E78.2 Mixed hyperlipidemia; N95.9 Unspecified menopausal and perimenopausal disorder; M81.0 Age-related osteoporosis without current pathological fracture
CPT/HCPCS: 36415; 80048; 80061; 82043; 82306; 83036; 84450; 84460

== ENCOUNTER 2022-09-14 08:25 | Outpatient (REF) | payer MEDICARE, SELFPAY ==
--- NOTE | ~2022-09-14 | XR_ITS ---
EXAMINATION: XR WRIST, LEFT XR HAND, LEFT CLINICAL INFORMATION: Left hand/wrist sprain. COMPARISON: None available. TECHNIQUE: PA, lateral, and oblique views of the left wrist and PA, lateral, and oblique views of the left hand FINDINGS: LEFT WRIST: The bones and soft tissues are normal. No fracture. Alignment is anatomic. Joint spaces are maintained. No erosions or soft tissue calcifications. LEFT HAND: The bones and soft tissues are normal. No fracture. Alignment is anatomic. Joint spaces are maintained. No erosions or soft tissue calcifications. XR/XR hand wrist LT IMPRESSION: Unremarkable left hand and wrist.
== END 2022-09-14 08:26 | disposition home or self-care (01) ==
LOC: HO.HMGCX 08:25
PROVIDERS: PCP Internal Medicine; Visit Provider Internal Medicine
DX: S63.502A Unspecified sprain of left wrist, initial encounter (principal); S66.912A Strain of unspecified muscle, fascia and tendon at wrist and hand level, left hand, initial encounter; X58.XXXA Exposure to other specified factors, initial encounter; Y93.9 Activity, unspecified; Y92.9 Unspecified place or not applicable; Y99.9 Unspecified external cause status
CPT/HCPCS: 73110; 73130

== ENCOUNTER 2022-10-27 07:46 | Outpatient (REF) | payer MEDICARE, SELFPAY ==
--- NOTE | ~2022-10-27 | MM_ITS ---
EXAMINATION: BONE DENSITOMETRY CLINICAL INDICATION: Screening. COMPARISON: Previous BD dated 10/23/2020 and baseline BD dated 04/28/2016. TECHNIQUE: Using a [employer] DXA System (software version: 13.1) manufactured by [employer], dual-energy x-ray absorptiometry was performed of the lumbar spine and left hip. The images are of good technical quality. Summary results are attached. FINDINGS: AP SPINE L1-L4 (excluding L2): The data of L1-L4 has been changed to exclude the L2 vertebral body, because degenerative changes at this level may cause overestimation of lumbar spine density. Current: BMD 0.913 g/cm2, Z-score -1.4, T-score -2.1, osteopenia, 4.0% increase from previous, 3.4% decrease from baseline (<5% change is not significant). Prior: BMD 0.878 g/cm2. Baseline: BMD 0.945 g/cm2. LEFT FEMUR, NECK: Current: BMD 0.768 g/cm2, Z-score -1.0, T-score -1.9, osteopenia. Prior: BMD 0.782 g/cm2. Baseline: BMD 0.888 g/cm2. LEFT FEMUR, TOTAL: Current: BMD 0.835 g/cm2, Z-score -0.8, T-score -1.4, osteopenia, 2.2% decrease from previous, 10.8% decrease from baseline (<5% change is not significant). Prior: BMD 0.854 g/cm2. Baseline: BMD 0.936 g/cm2. IDENTIFIED RISK FACTORS: Early menopause, osteoporosis, secondary osteoporosis, tobacco use (current smoker). HISTORY OF FRACTURE: None listed. MEDICATIONS: Multivitamin, vitamin D. MM/XR DEXA axial skeleton IMPRESSION: 1. DIAGNOSIS: Osteopenia based on the lowest T-score value of -2.1 in the lumbar spine applying World Health Organization criteria. 2. 10-YEAR FRACTURE RISK PREDICTION, FRAX: Major osteoporotic fracture (clinical spine, forearm, hip or shoulder) 10.3%. Hip fracture 2.4%. 3. Treatment Recommendations: NOF guidelines recommend consideration for treatment in postmenopausal women and men age 50 and older presenting with the following: -A hip or vertebral (clinical or morphometric) fracture. -T-score less than or equal to -2.5 at the femoral neck or spine after appropriate evaluation to exclude secondary causes. -Low bone mass at the hip or spine and a 10-year fracture probability by FRAX of greater than or equal to 3% for hip fracture or greater than or equal to 20% for major osteoporotic fracture based on the [place] adapted WHO algorithm. 4. Other Recommendations: All treatment decisions require clinical judgment and consideration of individual patient factors, including patient preferences, comorbidities, previous drug use, risk factors not captured in the FRAX model (e.g. frailty, falls, vitamin D deficiency, increased bone turnover, interval significant decline in bone density) and possible under or overestimation of fracture risk by FRAX. Additional medical evaluation for secondary cause of low bone mineral density may be appropriate. FUTURE SCAN RECOMMENDATION: People with diagnosed cases of osteoporosis or at high risk for fracture should have regular bone mineral density tests. For patients eligible for Medicare, routine testing is allowed once every 2 years. The testing frequency can be increased to one year for patients who have rapidly progressing disease, those who are receiving or discontinuing medical therapy to restore bone mass, or have additional risk factors.
--- NOTE | ~2022-10-27 | MM_ITS ---
EXAMINATION: MM SCREENING DIGITAL BREAST TOMOSYNTHESIS, BILATERAL CLINICAL INFORMATION: Screening. Asymptomatic. The lifetime risk of breast cancer based on the Tyrer-Cuzick Model is 10%. COMPARISON: Mammography: 10/25/2021, 10/23/2020, 06/22/2019 TECHNIQUE: Digital breast tomosynthesis is performed in both the craniocaudal and mediolateral oblique views along with computer-aided detection (CAD). Synthesized 2D images are generated from the tomosynthesis. FINDINGS: There are scattered areas of fibroglandular density (ACR BI-RADS breast composition Category b). There are no significant masses, abnormal calcifications, or other abnormalities. No architectural abnormality or developing density or significant change from prior studies. Axillary nodes are stable. Skin contours are smooth. MM/MM tomosynthesis screening BI IMPRESSION: No mammographic evidence of malignancy. ASSESSMENT: BI-RADS 2: Benign RECOMMENDATION: Routine annual mammography screening. This patient's information was entered into a reminder system with a target due date for their next mammogram.
== END 2022-10-27 07:47 | disposition home or self-care (01) ==
LOC: HO.MAMMO 07:46
PROVIDERS: Visit Provider Internal Medicine
DX: Z12.31 Encounter for screening mammogram for malignant neoplasm of breast (principal); Z13.820 Encounter for screening for osteoporosis; Z78.0 Asymptomatic menopausal state
CPT/HCPCS: 77063; 77067; 77080

== ENCOUNTER 2022-11-04 06:54 | Outpatient (REF) | payer MEDICARE, SELFPAY ==
[2022-11-04 11:22] LABS: MANUAL DIFF FLAG NO
[2022-11-04 11:27] LABS: Basophils Absolute Auto 0.1 X10*3/uL (0.0-0.2); Basophils Percent Auto 0.9 % (0-2); Eosinophils Absolute Auto 0.3 X10*3/uL (0.0-0.4); Eosinophils Percent Auto 2.7 % (0-4); Hematocrit 49.6 % (37.0-47.0); Hemoglobin 16.7 g/dl (12.0-16.0); Imm Gran Abs Auto 0.04 X10*3/uL (0.00-0.03); Imm Gran Pct Auto 0.4 % (0.0-0.4); Lymphocytes Absolute Auto 2.4 X10*3/uL (1.2-4.9); Lymphocytes Percent Auto 25.6 % (20-40); Mean Corpuscular HGB Conc 33.7 g/dl (31.0-35.0); Mean Corpuscular Hemoglobin 31.7 pg (27.0-33.0); Mean Corpuscular Volume 94.3 fL (80.0-98.0); Mean Platelet Volume 12.2 fL (9.4-12.3); Monocytes Absolute Auto 0.7 X10*3/uL (0.1-1.2); Monocytes Percent Auto 7.2 % (2-11); Neutrophils Absolute Auto 5.9 x10*3/uL (2.0-8.3); Neutrophils Percent Auto 63.2 % (45-73); Platelet Count 183 X10*3/uL (160-400); Red Blood Count 5.26 X10*6/uL (4.20-5.50); Red Cell Distribution Width 12.4 % (11.0-16.0); White Blood Count 9.4 X10*3/uL (4.8-10.8)
[2022-11-04 12:10] LABS: Estimated Average Glucose 171 mg/dL; Hemoglobin A1c % 7.6 %
[2022-11-04 12:40] LABS: Alanine Aminotransferase 26 U/L (0-31); Anion Gap 15 (12-20); Aspartate Amino Transferase 19 U/L (5-31); Blood Urea Nitrogen 13 mg/dL (9-16); Carbon Dioxide 25 mmol/L (22-29); Chloride 102 mmol/L (96-108); Cholesterol 195 mg/dL; Estimated Glomerular Filt Rate > 60; Glucose Fasting 217 mg/dL (60-99); HDL Cholesterol 27 mg/dL; LDL Cholesterol Calculated 121 mg/dl; Potassium 4.1 mmol/L (3.3-5.1); Sodium 138 mmol/L (135-145); Triglycerides 238 mg/dL
== END 2022-11-04 06:55 | disposition home or self-care (01) ==
LOC: HO.HMGCLDS 06:54
PROVIDERS: PCP Internal Medicine; Visit Provider Internal Medicine
DX: R00.0 Tachycardia, unspecified (principal); E78.2 Mixed hyperlipidemia; E11.3293 Type 2 diabetes mellitus with mild nonproliferative diabetic retinopathy without macular edema, bilateral
CPT/HCPCS: 36415; 80048; 80061; 83036; 84450; 84460; 85025

== ENCOUNTER 2022-11-10 13:33 | Outpatient (AMB) | payer MEDICARE, SELFPAY ==
--- NOTE | 2022-11-10 13:50 | A.OFFPC_ITS ---
<Statement entered by Anne Marie Miranda MD - 09/18/24 15:18> This note has been administratively?closed. Vital Signs 11/10/22 13:51 Height 5 ft 6 in Weight 209 lb BMI 33.7 BP 112/60 Blood Pressure Location Lt brachial Position Sitting Pulse 111 H Pulse Source Pulse Oximeter Pulse Oximetry (%) 94 Oxygen Delivery Method Room Air Intake Visit Reasons: 3 mo. f/u labs Intake Note: Pt is here today for her 3 mo. f/u labs Allergies empagliflozin [From Jardiance] Adverse Reaction (Intermediate, Verified 11/10/22 14:10) Increased thirst/dehydration atorvastatin Adverse Reaction (Unknown, Verified 11/10/22 14:10) muscle cramps rosuvastatin [From Crestor] Adverse Reaction (Unknown, Verified 11/10/22 14:10) muscle cramps metoprolol Adverse Reaction (Verified 11/10/22 14:10) elevated glucose zetia Allergy (Intermediate, Uncoded 11/10/22 14:10) Muscle Pain Medication List - Last Reconciled 11/10/22 by Anne Marie Miranda MD glipizide 5 mg PO BID metformin 1,000 mg PO BID multivitamin 1 tab PO DAILY pravastatin 80 mg PO DAILY Tobacco use date assessed: 11/10/22 Fall risk assessment: 1 Fall in past year Last assessed Fall Risk: 11/10/22 Dental Screening Dental Screen Date: 11/10/22 Did you have a dental visit in the last 12 months?: No Was dental information given to patient?: Patient declined [facility] Medical History (Updated 11/10/22 @ 14:28 by Anne Marie Miranda MD) Adenoma of left adrenal gland Anxiety disorder Carpal tunnel syndrome Demyelinating disorder 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 Sister No problems noted. Social History Housing: House Alcohol intake: current Patient Tobacco Use Status: Current everyday Tobacco user Cigarette Packs Per Day: 1 Cigarettes Per Day: 20 Years Smoked: 43 e-Cigarette/Vaping Use: Former Use service: No Current occupational status: retired Current occupation: lt handed Cognitive needs: No Hearing needs: No Vision needs: No Questionnaire Thrive Questionnaire Date Thrive assessed: 07/20/22 AUDIT C Alcohol Use Questionnaire (AUDIT-C) 1. How often do you have a drink containing alcohol?: Never Total Score: 0 DIDI-7 AMB Questionnaire DIDI-7 Date DIDI - 7 assessed: 11/10/22 Feeling nervous, anxious, or on edge: 3 = Nearly every day Not being able to stop or control worryin = Several days Worrying too much about different things: 2 = More than half the days Trouble relaxin = Nearly every day Being so restless that it is hard to sit still: 3 = Nearly every day Becoming easily annoyed or irritable: 3 = Nearly every day Feeling afraid as if something awful might happen: 0 = Not at all Total DIDI-7 score (0-4 normal; 5-9 mild; 10-14 moderate; 15-21 severe): 15 Source: Developed by Drs. Jesus Cooper, Carly Cochran, [place] Hannah and colleagues, with an educational raisa from [employer]. Physical exam (Primary Care) Vital Signs: Last Vital Signs Pulse 111 H 11/10/22 13:51 BP 112/60 11/10/22 13:51 Pulse Ox 94 11/10/22 13:51 Oxygen Delivery Method Room Air 11/10/22 13:51 BMI result Body Mass Index 33.7 Tobacco/Smoking Status: Tobacco use Status Tobacco use date assessed 11/10/22 11/10/22 13:56 Patient Tobacco Use Status Current everyday Tobacco 11/10/22 13:56 e-Cigarette/Vaping Use Former Use 11/10/22 13:56 Thrive Assessment: Date of Thrive Assessment Date Thrive assessed 07/20/22 11/10/22 13:56 Results Reviewed Results Reviewed: Laboratory Tests 11/04/22 06:58 Estimat Average Glucose 171 Hemoglobin A1c % 7.6 ENTERED: 11/04/22 [facility] [address]: ORDERED: CBC Auto Diff Test Result Flag Reference Site WBC 9.4 4.8-10.8 X10*3/uL RBC 5.26 4.20-5.50 X10*6/uL HGB 16.7 H 12.0-16.0 g/dl HCT 49.6 H 37.0-47.0 % MCV 94.3 80.0-98.0 fL MCH 31.7 27.0-33.0 pg MCHC 33.7 31.0-35.0 g/dl RDW 12.4 11.0-16.0 % PLT 183 160-400 X10*3/uL ENTERED: 11/04/22 [facility] DR: ORDERED: Met Prof Fast, AST, ALT, Lipid Panel Test Result Flag Reference Site Sodium 138 135-145 mmol/L Potassium 4.1 3.3-5.1 mmol/L CL 102 96-108 mmol/L CO2 25 22-29 mmol/L Gap 15 12-20 BUN 13 9-16 mg/dL Creat 0.83 0.5-1.4 mg/dL EGFR > 60 NOTE: For -Citizen Of [place] individuals, multiply the result by 1.210. Chronic Kidney Disease: Estimated GFR < 60 mL/min/1.73m2 Severe Kidney Disease: Estimated GFR < 15 mL/min/1.73m2 FBS 217 H 60-99 mg/dL A fasting glucose of 126 mg/dl or greater on more than one occasion is considered diagnostic of diabetes. CA 9.0 8.4-10.2 mg/dL AST (GOT) 19 5-31 U/L ALT (GPT) 26 0-31 U/L Triglyceride 238 mg/dL Desirable Triglyceride: less than 150 mg/dL Borderline High Triglyceride 150-199 mg/dL High Triglyceride: 200-499 mg/dL Very High Triglyceride: greater than or equal to 5OO mg/dL Chol 195 mg/dL Desirable Cholesterol: less than 200 mg/dL Borderline High Cholesterol: 200-239 mg/dL High Cholesterol: greater than 239 mg/dL LDL Calculated 121 mg/dl Desirable LDL: less than 100 mg/dL Near Optimal/Above Optimal LDL: 110-129 mg/dL Borderline High LDL: 130-159 mg/dL High LDL: 160-189 mg/dL Very High LDL: greater than or equal to 190 mg/dL HDL 27 mg/dL Desirable HDL: greater than 40 mg/dL Assessment and Plan Assessment & Plan (1) Polycythemia: Code(s): D75.1 - Secondary polycythemia (2) Mixed dyslipidemia: Code(s): E78.2 - Mixed hyperlipidemia (3) 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: Code(s): E11.3293 - Type 2 diabetes mellitus with mild nonproliferative diabetic retinopathy without macular edema, bilateral Orders: Orders Basic Metabolic Panel Fasting 3 Months E11.3293 - Type 2 diabetes mellitus with mild nonproliferative diabetic retinopathy without macular edema, bilateral, E78.2 - Mixed hyperlipidemia Hemoglobin A1c 3 Months E11.3293 - Type 2 diabetes mellitus with mild nonproliferative diabetic retinopathy without macular edema, bilateral, E78.2 - Mixed hyperlipidemia Aspartate Amino Transferase 3 Months E11.3293 - Type 2 diabetes mellitus with mild nonproliferative diabetic retinopathy without macular edema, bilateral, E78.2 - Mixed hyperlipidemia Alanine Aminotransferase 3 Months E11.3293 - Type 2 diabetes mellitus with mild nonproliferative diabetic retinopathy without macular edema, bilateral, E78.2 - Mixed hyperlipidemia Lipid Panel 3 Months E11.3293 - Type 2 diabetes mellitus with mild nonproliferative diabetic retinopathy without macular edema, bilateral, E78.2 - Mixed hyperlipidemia Vitamin D 25-OH Total 3 Months E11.3293 - Type 2 diabetes mellitus with mild nonproliferative diabetic retinopathy without macular edema, bilateral, E78.2 - Mixed hyperlipidemia Referrals Hematology & Oncology Referral D75.1 - Secondary polycythemia Coding Level of Care Code Est Pt Level 4 (43923) Diagnoses Polycythemia D75.1 Mixed dyslipidemia E78.2 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
[2022-11-10 13:51] VITALS: BP 112/60; PULSE 111; O2SAT 94; BMI 33.7
== END 2022-11-10 15:23 | disposition home or self-care (01) ==
PROVIDERS: PCP Internal Medicine; Visit Provider Internal Medicine
DX: D75.1 Secondary polycythemia (principal); E78.2 Mixed hyperlipidemia; E11.3293 Type 2 diabetes mellitus with mild nonproliferative diabetic retinopathy without macular edema, bilateral
CPT/HCPCS: 99499

== ENCOUNTER 2022-11-30 10:53 | Outpatient (AMB) | payer MEDICARE, SELFPAY ==
[2022-11-30 10:57] VITALS: BP 110/64; PULSE 102; TEMP 36.9; O2SAT 95
--- NOTE | 2022-11-30 10:57 | MHC.OFFWIV ---
Intake Vital Signs 11/30/22 10:57 Height 5 ft 6 in BP 110/64 Blood Pressure Location Rt brachial Position Sitting Pulse 102 H Pulse Source Pulse Oximeter Temp 98.4 F Temp Source Oral Pulse Oximetry (%) 95 Oxygen Delivery Method Room Air Intake Visit Reasons: EST/pins/needle upper torso Intake Note: pt says is here for a band of pain around torso for 2 weeks that is getting worse pt says it is the upper half of her body in her back pt says she feels like pins poking her and like when she has to use the bathroom Patient Tobacco Use Status: Current everyday Tobacco user Allergies empagliflozin [From Jardiance] Adverse Reaction (Intermediate, Verified 11/30/22 11:01) Increased thirst/dehydration atorvastatin Adverse Reaction (Unknown, Verified 11/30/22 11:01) muscle cramps rosuvastatin [From Crestor] Adverse Reaction (Unknown, Verified 11/30/22 11:01) muscle cramps metoprolol Adverse Reaction (Verified 11/30/22 11:01) elevated glucose zetia Allergy (Intermediate, Uncoded 11/30/22 11:01) Muscle Pain HPI EST/pins/needle upper torso HPI Details 67-year-old female patient presents today with a 2 week history of pain that is wrapping circumferentially around her mid back and upper abdomen. She reports this feels like both a tight band, and also sharp pins/needles poking her. She denies any presence of a rash. She denies any vomiting, diarrhea, constipation. She denies any chest pain, fever, shortness of breath. She denies any history of trauma to her abdomen or midback. 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 Sister No problems noted. Social History Housing: House Alcohol intake: current Patient Tobacco Use Status: Current everyday Tobacco user Cigarette Packs Per Day: 1 Cigarettes Per Day: 20 Years Smoked: 43 e-Cigarette/Vaping Use: Former Use service: No Current occupational status: retired Current occupation: lt handed Cognitive needs: No Hearing needs: No Vision needs: No Review of Systems Const All systems reviewed & are unremarkable except as noted in HPI and below Physical Exam Vital Signs: Last Vital Signs Temp 98.4 F 11/30/22 10:57 Pulse 102 H 11/30/22 10:57 BP 110/64 11/30/22 10:57 Pulse Ox 95 11/30/22 10:57 Oxygen Delivery Method Room Air 11/30/22 10:57 Const General: cooperative, healthy appearing, comfortable and no acute distress Neck Neck: Yes no lymphadenopathy Resp Effort & Inspection: normal respiratory effort and able to speak in complete sentences Auscultation: clear to auscultation bilaterally Cardio Jugular venous distension: no JVD Palpation: normal PMI Rate: regular rate Rhythm: regular rhythm GI Inspection: Yes normal to inspection and Yes obesity Palpation (GI): Soft to palpation and No hepatosplenomegaly present Auscultation: normal bowel sounds General: Yes no CVA tenderness Back/Spine/Pelvis Other: No vertebral tenderness, normal thoracic spine range of motion. Back: no CVA tenderness Skin General skin exam: no rashes or lesions noted Neuro Other: Reported pain/paresthesias mid back, wrapping around abdomen, primarily right side. Approximately T5/6 dermatome General: gait normal Psych Appearance: grossly normal Mental Status: mental status grossly normal Speech and movement: Normal speech and movement present Assessment & Plan Assessment & Plan (1) Paresthesia: Code(s): R20.2 - Paresthesia of skin Plan: Patient presentation consistent with neuropathic generator. Differential diagnosis would be zoster, however she does not and has not had a rash. I will obtain x-ray of her thoracic spine at this time. She declined prescription for prednisone. I instead offered her short course of gabapentin, to see if this will help with neuropathic pain. She agrees to this. We reviewed indications, use, possible side effects. If she does not continue to improve with time and medication, or if symptoms worsen or new symptoms develop, she should follow-up with her PCP Dr. Miranda. Patient verbalizes understanding and agrees to plan. (2) Mid back pain: Code(s): M54.9 - Dorsalgia, unspecified Orders: Orders XR thoracic spine 2V Today M54.9 - Dorsalgia, unspecified, R20.2 - Paresthesia of skin Medications: New gabapentin 100 mg PO BID 14 caps 0RF 7 days M54.9 - Dorsalgia, unspecified, R20.2 - Paresthesia of skin Coding Level of Care Code Est Pt Level 3 (85520) Diagnoses Paresthesia R20.2 Mid back pain M54.9
== END 2022-11-30 11:37 | disposition home or self-care (01) ==
PROVIDERS: PCP Internal Medicine; Visit Provider Nurse Practitioner Family
DX: R20.2 Paresthesia of skin (principal); M54.9 Dorsalgia, unspecified
CPT/HCPCS: 99213

== ENCOUNTER 2022-11-30 11:36 | Outpatient (REF) | payer MEDICARE, SELFPAY ==
--- NOTE | ~2022-11-30 | XR_ITS ---
EXAMINATION: XR THORACOLUMBAR SPINE CLINICAL INFORMATION: Dorsalgia COMPARISON: None available. TECHNIQUE: AP and lateral radiographs of the thoracic spine. FINDINGS: Mild to moderate multilevel degenerative disc disease, most prominent at the upper thoracic levels. Normal alignment and kyphosis with mild scoliosis. No fracture. XR/XR thoracic spine 2V IMPRESSION: Mild to moderate multilevel degenerative disc disease. No fracture.
== END 2022-11-30 11:37 | disposition home or self-care (01) ==
LOC: HO.HMGCX 11:36
PROVIDERS: PCP Internal Medicine; Visit Provider Nurse Practitioner Family
DX: M54.9 Dorsalgia, unspecified (principal); R20.2 Paresthesia of skin
CPT/HCPCS: 72070

== ENCOUNTER → 2022-12-02 14:11 | Outpatient (BNV) | payer MEDICARE, SELFPAY | PROVIDERS: PCP Internal Medicine; Visit Provider Internal Medicine Medical Oncology | DX: D75.1 Secondary polycythemia (principal) | CPT/HCPCS: 99204; 99213 ==

== ENCOUNTER 2022-12-06 14:26 | Outpatient (REF) | payer MEDICARE, SELFPAY | END 2022-12-06 14:27 | disposition home or self-care (01) | LOC: HO.MAMMO 14:26 | PROVIDERS: Visit Provider Internal Medicine Medical Oncology | DX: Z13.89 Encounter for screening for other disorder (principal) ==

== ENCOUNTER 2022-12-19 10:19 | Outpatient (AMB) | payer MEDICARE, SELFPAY ==
--- NOTE | 2022-12-19 10:29 | MHC.PC.OV ---
Vital Signs 12/19/22 10:36 Height 5 ft 6 in Weight 204 lb BMI 32.9 BP 106/60 Blood Pressure Location Rt brachial Position Sitting Pulse 101 H Pulse Source Pulse Oximeter Pulse Oximetry (%) 96 Oxygen Delivery Method Room Air Intake Visit Reasons: pinched nerve f/u walkin Intake Note: Pt is here today to f/u from the walkin on a pinched nerve Allergies empagliflozin [From Jardiance] Adverse Reaction (Intermediate, Verified 12/19/22 10:52) Increased thirst/dehydration atorvastatin Adverse Reaction (Unknown, Verified 12/19/22 10:52) muscle cramps rosuvastatin [From Crestor] Adverse Reaction (Unknown, Verified 12/19/22 10:52) muscle cramps metoprolol Adverse Reaction (Verified 12/19/22 10:52) elevated glucose zetia Allergy (Intermediate, Uncoded 12/19/22 10:52) Muscle Pain Medication List - Last Reconciled 12/19/22 by Anne Marie Miranda MD glipizide 5 mg PO BID metformin 1,000 mg PO BID multivitamin 1 tab PO DAILY pravastatin 80 mg PO DAILY silicon dioxide (bulk) (Silica Gel powder) ea miscellaneous Tobacco use date assessed: 11/10/22 Fall risk assessment: 1 Fall in past year Last assessed Fall Risk: 12/19/22 Dental Screening Dental Screen Date: 12/19/22 Did you have a dental visit in the last 12 months?: No Was dental information given to patient?: Patient declined HPI HPI Comments History of Present Illness Details 67-year-old lady here today for follow-up after recent visit to the walk-in approximately 3 weeks ago, complaining of 2 week history of pain that is wrapping circumferentially around her mid back and upper abdomen.? She reports this feels like both a tight band, and also sharp pins/needles poking her.? She denies any presence of a rash.? She denies any vomiting, diarrhea, constipation.? She denies any chest pain, fever, shortness of breath.? She denies any history of trauma to her abdomen or midback. X-ray of thoracic spine done showed mild to moderate multilevel degenerative disc disease. No fracture. She was placed on gabapentin 100 mg twice a day for 7 day, which he states did not really help and made her just feel bloated, and gave her a very dry mouth. She states pain is still present, worse when she is lying in bed in [place] to her side, or with certain movements of her trunk. This comes and goes. ? ? 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 Sister No problems noted. Social History Housing: House Alcohol intake: current Patient Tobacco Use Status: Current everyday Tobacco user Cigarette Packs Per Day: 1 Years Smoked: 43 e-Cigarette/Vaping Use: Former Use service: No Current occupational status: retired Current occupation: lt handed Cognitive needs: No Hearing needs: No Vision needs: Yes Questionnaire Thrive Questionnaire Date Thrive assessed: 07/20/22 DIDI-7 AMB Questionnaire DIDI-7 Date DIDI - 7 assessed: 11/10/22 Source: Developed by Drs. Jesus Cooper, Carly Cochran, [place] Hannah and colleagues, with an educational raisa from [employer]. Review of Systems Const Denies chills, Denies difficulty sleeping, Denies fatigue, Denies fever(s), Denies headache(s) and Denies weakness ENT Reports no additional complaints, Denies dysphagia, Denies headache(s) and Denies odynophagia Card Denies chest pain, Denies irregular heart rhythm, Denies lightheadedness, Denies radiating jaw, neck or arm pain and Denies dyspnea Resp Denies chest congestion, Denies cough, Denies excessive phlegm production, Denies pain on inspiration and Denies dyspnea GI Reports as per HPI, Denies hematochezia, Denies change in bowel habits, Denies dysphagia, Denies dyspepsia, Denies heartburn, Denies nausea and Denies odynophagia Reports no additional complaints Musc Reports as per HPI Skin/Breast Denies lesions and Denies rash Neuro Denies headache(s) and Denies weakness Endo Denies fatigue Physical exam (Primary Care) Vital Signs: Last Vital Signs Pulse 110 H 12/19/22 10:36 BP 106/60 12/19/22 10:36 Pulse Ox 96 12/19/22 10:36 Oxygen Delivery Method Room Air 12/19/22 10:36 BMI result Body Mass Index 32.9 Tobacco/Smoking Status: Tobacco use Status Tobacco use date assessed 11/10/22 12/19/22 10:31 Patient Tobacco Use Status Current everyday Tobacco 12/19/22 10:31 e-Cigarette/Vaping Use Former Use 12/19/22 10:31 Thrive Assessment: Date of Thrive Assessment Date Thrive assessed 07/20/22 12/19/22 10:31 Const Other: Alert oriented x3, no acute distress noted, ambulatory normal gait Nutritional Appearance: obese Orientation/consciousness: patient oriented x3 Eyes General: appearance normal, both eyes and all related structures Neck Other: Supple, no lymphadenopathy, no thyroid enlargement Chest Other: No tenderness on palpation over sternum and costal margins Chest palpation & inspection: normal inspection of the chest Breast/axilla inspection: normal inspection of the breasts Breast/axilla palpation: normal palpation of the breasts Resp Auscultation: clear to auscultation bilaterally Cardio Other: S1-S2 present regular rate and rhythm GI Other: Morbidly obese, Normal bowel sounds, soft, nontender, no mass palpated General: Yes no CVA tenderness Back/Spine/Pelvis Back: no CVA tenderness and No back tenderness Skin General skin exam: no rashes or lesions noted Neuro General: patient oriented x3, gait normal, moves all extremities, Normal light touch and pain sensation and no focal motor deficits Extrem General: Yes full ROM, Yes no joint enlargement and Yes no clubbing, cyanosis or edema Assessment and Plan Assessment & Plan (1) Pain, abdominal, nonspecific: Code(s): R10.9 - Unspecified abdominal pain Plan: Slightly pinched nerve, due to increased girth of abdomen, that might be likely getting pinched under costal margin went specially when sitting or bending. Discontinued gabapentin, was not working. Advised to try applying Salonpas patch to affected areas once or twice a day for 1 week. Call if no improvement and will refer to pain management. (2) Obesity: Code(s): E66.9 - Obesity, unspecified Plan: Discussed need to increase activity and wt reduction. Recommended focusing on improving your health instead of dieting. : Eat Mediterranean diet, limit foods high in fat, sugar, and calories, eat slowly, pay attention to portion sizes, plan your meals ahead of time, start regular physical activity 150 minutes of moderate intensity exercise or 90 minutes/week of vigorous exercise and increase water intake. Coding Level of Care Code Est Pt Level 3 (51645) Diagnoses Pain, abdominal, nonspecific R10.9 Obesity E66.9
[2022-12-19 10:36] VITALS: BP 106/60; PULSE 101; O2SAT 96; BMI 32.9
== END 2022-12-19 11:27 | disposition home or self-care (01) ==
PROVIDERS: PCP Internal Medicine; Visit Provider Internal Medicine
DX: R10.9 Unspecified abdominal pain (principal); E66.9 Obesity, unspecified; Z68.32 Body mass index [BMI] 32.0-32.9, adult
CPT/HCPCS: 99213

== ENCOUNTER 2023-01-10 13:24 | Outpatient (REF) | payer MEDICARE, SELFPAY | END 2023-01-10 13:25 | disposition home or self-care (01) | LOC: HO.BBR 13:24 | PROVIDERS: PCP Internal Medicine; Visit Provider Internal Medicine Medical Oncology | DX: D75.1 Secondary polycythemia (principal) | CPT/HCPCS: 85018; 99195 ==

== ENCOUNTER 2023-02-02 07:55 | Outpatient (REF) | payer MEDICARE, SELFPAY ==
[2023-02-02 12:10] LABS: Alanine Aminotransferase 19 U/L (0-31); Anion Gap 13 (12-20); Aspartate Amino Transferase 17 U/L (5-31); Blood Urea Nitrogen 8 mg/dL (9-16); Calcium 9.5 mg/dL (8.4-10.2); Carbon Dioxide 28 mmol/L (22-29); Chloride 103 mmol/L (96-108); Cholesterol 208 mg/dL (<200); Estimated Glomerular Filt Rate > 60; Glucose Fasting 176 mg/dL (60-99); HDL Cholesterol 29 mg/dL (>40); LDL Cholesterol Calculated 136 mg/dL (<100); Potassium 4.8 mmol/L (3.3-5.1); Sodium 139 mmol/L (135-145); Triglycerides 215 mg/dL (<150)
[2023-02-02 12:22] LABS: Estimated Average Glucose 143 mg/dL; Hemoglobin A1c % 6.6 % (<6.0)
[2023-02-02 12:27] LABS: Vitamin D 25-OH Total 78.7 ng/mL (>30)
== END 2023-02-02 07:56 | disposition home or self-care (01) ==
LOC: HO.HMGCLDS 07:55
PROVIDERS: PCP Internal Medicine; Visit Provider Internal Medicine
DX: E78.2 Mixed hyperlipidemia (principal); E11.3293 Type 2 diabetes mellitus with mild nonproliferative diabetic retinopathy without macular edema, bilateral
CPT/HCPCS: 36415; 80048; 80061; 82306; 83036; 84450; 84460

== ENCOUNTER 2023-02-08 12:52 | Outpatient (REF) | payer MEDICARE, SELFPAY | END 2023-02-08 12:53 | disposition home or self-care (01) | LOC: HO.BBR 12:52 | PROVIDERS: PCP Internal Medicine; Visit Provider Internal Medicine Medical Oncology | DX: D75.1 Secondary polycythemia (principal) | CPT/HCPCS: 85014; 85018; 99195 ==

== ENCOUNTER 2023-02-09 13:24 | Outpatient (AMB) | payer MEDICARE, SELFPAY ==
[2023-02-09 13:25] VITALS: BP 100/60; PULSE 111; O2SAT 97; BMI 32.0
--- NOTE | 2023-02-09 13:25 | A.OFFPC_ITS ---
<Statement entered by Anne Marie Miranda MD - 09/18/24 15:22> This note has been administratively?closed. Vital Signs 02/09/23 13:25 Height 5 ft 6 in Weight 198 lb BMI 32.0 BP 100/60 Blood Pressure Location Lt brachial Position Sitting Pulse 111 H Pulse Source Pulse Oximeter Pulse Oximetry (%) 97 Oxygen Delivery Method Room Air Intake Visit Reasons: 3M/Follow up Intake Note: patient is here today for her 3 month f/u Allergies empagliflozin [From Jardiance] Adverse Reaction (Intermediate, Verified 02/09/23 14:02) Increased thirst/dehydration atorvastatin Adverse Reaction (Unknown, Verified 02/09/23 14:02) muscle cramps rosuvastatin [From Crestor] Adverse Reaction (Unknown, Verified 02/09/23 14:02) muscle cramps metoprolol Adverse Reaction (Verified 02/09/23 14:02) elevated glucose zetia Allergy (Intermediate, Uncoded 02/09/23 14:02) Muscle Pain Medication List - Last Reconciled 02/09/23 by Anne Marie Miranda MD glipizide 5 mg PO BID metformin 1,000 mg PO BID multivitamin 1 tab PO DAILY pravastatin 80 mg PO DAILY silicon dioxide (bulk) (Silica Gel powder) ea miscellaneous Tobacco use date assessed: 11/10/22 Fall risk assessment: 1 Fall in past year Last assessed Fall Risk: 02/09/23 Dental Screening Dental Screen Date: 02/09/23 Did you have a dental visit in the last 12 months?: No Did you have a dental problem in the last 6 months where you did not have access to dental care?: No Was dental information given to patient?: No [facility] Medical History (Updated 02/03/23 @ 09:52 by Kisha Zamora PA-C) 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 Mixed dyslipidemia Mild cognitive impairment Demyelinating disorder Migraine Anxiety disorder Erythrocytosis Polycythemia Osteopenia (~2005) Menopause Nicotine dependence, cigarettes, uncomplicated Obesity Vitamin D deficiency Adenoma of left adrenal gland Shoulder pain, right Tendinitis of left ankle Carpal tunnel syndrome Peroneal neuropathy Surgical History (Updated 02/03/23 @ 09:35 by Kisha Zamora PA-C) History of colonoscopy History of lumbar puncture History of surgical removal of ganglion cyst Family History Father Cancer Mother Kidney failure Diabetes mellitus Elevated cholesterol Brother AIDS Sister Breast cancer Brother No problems noted. Sister No problems noted. Social History Housing: House Alcohol intake: current Patient Tobacco Use Status: Current everyday Tobacco user Cigarette Packs Per Day: 1 Years Smoked: 43 e-Cigarette/Vaping Use: Former Use service: No Current occupational status: retired Current occupation: lt handed Cognitive needs: No Hearing needs: No Vision needs: Yes Questionnaire Thrive Questionnaire Date Thrive assessed: 07/20/22 AUDIT C Alcohol Use Questionnaire (AUDIT-C) 1. How often do you have a drink containing alcohol?: Never Total Score: 0 DIDI-7 AMB Questionnaire DIDI-7 Date DIDI - 7 assessed: 11/10/22 Feeling nervous, anxious, or on edge: 0 = Not at all Not being able to stop or control worryin = Not at all Worrying too much about different things: 0 = Not at all Trouble relaxin = Not at all Being so restless that it is hard to sit still: 0 = Not at all Becoming easily annoyed or irritable: 0 = Not at all Feeling afraid as if something awful might happen: 0 = Not at all Total DIDI-7 score (0-4 normal; 5-9 mild; 10-14 moderate; 15-21 severe): 0 Source: Developed by Drs. Jesus Cooper, Carly Cochran, [place] Hannah and colleagues, with an educational raisa from [employer]. 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: Code(s): E11.3293 - Type 2 diabetes mellitus with mild nonproliferative diabetic retinopathy without macular edema, bilateral (2) Mixed dyslipidemia: Code(s): E78.2 - Mixed hyperlipidemia (3) Osteopenia: Onset Date: Comment: (Bone Dexa Lumbar T-score: -1.1 on 09/16/05; -3.0 on 10/23/20; -2.1 on 10/27/22) Code(s): M85.80 - Other specified disorders of bone density and structure, unspecified site (4) Immunization refused: Code(s): Z28.21 - Immunization not carried out because of patient refusal (5) Papanicolaou smear declined: Code(s): Z53.20 - Procedure and treatment not carried out because of patient's decision for unspecified reasons Orders: Orders Aspartate Amino Transferase 3 Months - Type 2 diabetes mellitus with mild nonproliferative diabetic retinopathy without macular edema, bilateral, E55.9 - Vitamin D deficiency, unspecified, E78.2 - Mixed hyperlipidemia, F17.210 - Nicotine dependence, cigarettes, uncomplicated, M85.80 - Other specified disorders of bone density and structure, unspecified site Vitamin D 25-OH Total 3 Months - Type 2 diabetes mellitus with mild nonproliferative diabetic retinopathy without macular edema, bilateral, E55.9 - Vitamin D deficiency, unspecified, E78.2 - Mixed hyperlipidemia, F17.210 - Nicotine dependence, cigarettes, uncomplicated, M85.80 - Other specified disorders of bone density and structure, unspecified site Hemoglobin A1c 3 Months 329 - Type 2 diabetes mellitus with mild nonproliferative diabetic retinopathy without macular edema, bilateral, E55.9 - Vitamin D deficiency, unspecified, E78.2 - Mixed hyperlipidemia, F17.210 - Nicot ine dependence, cigarettes, uncomplicated, M85.80 - Other specified disorders of bone density and structure, unspecified site Alanine Aminotransferase 3 Months 329 - Type 2 diabetes mellitus with mild nonproliferative diabetic retinopathy without macular edema, bilateral, E55.9 - Vitamin D deficiency, unspecified, E78.2 - Mixed hyperlipidemia, F17.210 - Nicotine dependence, cigarettes, uncomplicated, M85.80 - Other specified disorders of bone density and structure, unspecified site Lipid Panel 3 Months .329 - Type 2 diabetes mellitus with mild nonproliferative diabetic retinopathy without macular edema, bilateral, E55.9 - Vitamin D deficiency, unspecified, E78.2 - Mixed hyperlipidemia, F17.210 - Nicotine dependence, cigarettes, uncomplicated, M85.80 - Other specified disorders of bone density and structure, unspecified site Microalbumin, Random (w Creat) 3 Months .329 - Type 2 diabetes mellitus with mild nonproliferative diabetic retinopathy without macular edema, bilateral, E55.9 - Vitamin D deficiency, unspecified, E78.2 - Mixed hyperlipidemia, F17.210 - Nicotine dependence, cigarettes, uncomplicated, M85.80 - Other specified disorders of bone density and structure, unspecified site Coding Level of Care Code Est Pt Level 4 (57738) Diagnoses 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
== END 2023-02-09 14:39 | disposition home or self-care (01) ==
PROVIDERS: PCP Internal Medicine; Visit Provider Internal Medicine
DX: E11.3293 Type 2 diabetes mellitus with mild nonproliferative diabetic retinopathy without macular edema, bilateral (principal); E78.2 Mixed hyperlipidemia; M85.80 Other specified disorders of bone density and structure, unspecified site; Z28.21 Immunization not carried out because of patient refusal; Z53.20 Procedure and treatment not carried out because of patient's decision for unspecified reasons
CPT/HCPCS: 99499

== ENCOUNTER 2023-02-17 12:45 | Outpatient (AMB) | payer MEDICARE, SELFPAY ==
--- NOTE | 2023-02-17 07:56 | MHC.OFFVIS ---
Intake Intake Visit Reasons: LDCT SD Allergies empagliflozin [From Jardiance] Adverse Reaction (Intermediate, Verified 02/09/23 14:02) Increased thirst/dehydration atorvastatin Adverse Reaction (Unknown, Verified 02/09/23 14:02) muscle cramps rosuvastatin [From Crestor] Adverse Reaction (Unknown, Verified 02/09/23 14:02) muscle cramps metoprolol Adverse Reaction (Verified 02/09/23 14:02) elevated glucose zetia Allergy (Intermediate, Uncoded 02/09/23 14:02) Muscle Pain HPI LDCT SD HPI Details Initial visit for this 67yo smoker with a 45PYH. Patient has been smoking since age 22 for 45 years at 1ppd. At one period for 2 years she smoked about 80cig/day. . Denies marijuana use. Denies second hand smoke exposure. Reports exposure to asbestos and other chemicals (Benzene, sulfuric acid) . Denies known family history of lung cancer. Denies personal history of cancers. Denies chest CT in last year. . Denies recent travel outside the [place]. Denies recent respiratory illness or recent hospitalization for respiratory issues. Denies testing positive for COVID. Admits receiving COVID Vaccine. x 2. . Denies fever, chills, new/worsening cough, hemoptysis, hoarseness or dysphagia. Denies significant chest pain, significant dyspnea or unintentional weight loss. Patient Lung Cancer Screening Questionnaire reviewed with patient by provider. . Shared Decision Making Completed. Patient meets criteria. Discussed in detail with patient, the risk vs benefit of LDCT screening. Patient consents to proceed with scan. Discussed smoking cessation. 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 Mixed dyslipidemia Mild cognitive impairment Demyelinating disorder Migraine Anxiety disorder Erythrocytosis Polycythemia Osteopenia (~2005) Menopause Nicotine dependence, cigarettes, uncomplicated Obesity Vitamin D deficiency Adenoma of left adrenal gland Shoulder pain, right Tendinitis of left ankle Carpal tunnel syndrome Peroneal neuropathy Surgical History (Updated 02/17/23 @ 13:13 by Kisha Zamora PA-C) History of tonsillectomy History of colonoscopy History of lumbar puncture History of surgical removal of ganglion cyst Family History Father Cancer Mother Kidney failure Diabetes mellitus Elevated cholesterol Brother AIDS Sister Breast cancer Brother No problems noted. Sister No problems noted. Social History (Updated 02/17/23 @ 13:21 by Kisha Zamora PA-C) Housing: House Alcohol intake: current Patient Tobacco Use Status: Current everyday Tobacco user Cigarette Packs Per Day: 1 Years Smoked: (onset 22yo, 1ppd x 45yrs, 45pyh) e-Cigarette/Vaping Use: Former Use service: No Current occupational status: retired Current occupation: lt handed Cognitive needs: No Hearing needs: No Vision needs: Yes Assessment & Plan Assessment & Plan (1) Nicotine dependence, cigarettes, uncomplicated: Code(s): F17.210 - Nicotine dependence, cigarettes, uncomplicated Plan: - SDM visit completed today in office. - Patient meets criteria for LDCT for lung cancer screening purposes and is asymptomatic. - Smoking cessation counseling offered. Patients can always call [phone]. - Will arrange for a LDCT scan of the chest for screening purposes at [facility]. - Risks, benefits, and alternatives were discussed in detail and the patient agrees to proceed. - Risks discussed include but are not limited to: radiation exposure, anxiety during testing and while awaiting results, false negatives, false positives and possibility of additional intervention such as further imaging or surgical procedures for benign disease. - Benefits are obviously detection of lung cancer at an early stage which can lead to improved outcomes. - Discussed the importance of screening program compliance with adherence to yearly LDCT scan as scheduled - or sooner interval scans for personalized screening regimen. - Discussed follow up plan. Our office will send a letter discussing results and if needed set up phone call and office visit based on CT findings. - Patient educated on results categorization and the management decisions for suspicious findings potentially found on the screening LDCT scan. Any patient with a Lung RADS score of 3 or 4 will be reviewed by a multidisciplinary team at [facility] to form a plan of action in regards to scan findings. - If further work up is warranted for a suspicious lung finding this will be followed by the Lung Cancer Screening program in conjunction with the Thoracic Surgery Department at [facility]. - A copy of the office note and LDCT will be sent to the patient's PCP - as well as documentation on any associated further plans of care. - Incidental findings on LDCT are the PCP's responsibility. These findings are indicated with an S finding on the LDCT Assessment. A note discussing the findings will be sent to the PCP who is then responsible for further management. - All questions answered.? Coding Level of Care Code Lung Cancer Screening [id number] Diagnoses Nicotine dependence, cigarettes, uncomplicated F17.210
== END 2023-02-17 14:20 | disposition home or self-care (01) ==
PROVIDERS: PCP Internal Medicine; Visit Provider Physician Assistant Medical
DX: F17.210 Nicotine dependence, cigarettes, uncomplicated (principal)
CPT/HCPCS: G0296

== ENCOUNTER 2023-02-17 13:21 | Outpatient (REF) | payer MEDICARE, SELFPAY ==
--- NOTE | ~2023-02-17 | CT_ITS ---
EXAMINATION: CT CHEST LOW-DOSE SCREENING WITHOUT CONTRAST HISTORY: Asymptomatic patient meeting criteria for lung screening. PATIENT PACK-YEAR HISTORY: 47 Current Smoker: Yes If former smoker, years since quitting: COMPARISON: None TECHNIQUE: Multidetector volumetric non-contrast CT imaging of the chest was performed using low dose screening CT technique. Axial thin section 0.625 mm reformations in soft tissue and lung windows were obtained. Sagittal and coronal reformations were obtained. Axial MIP images were also created and reviewed. RECONSTRUCTED WIDTH: 1.25 mm x 1.25 mm TOTAL EXAM DLP: 55 mGy-cm CTDIvol: 1.27 L mGy FINDINGS: LUNGS: Mild centrilobular emphysema. No suspicious pulmonary nodule. No focal consolidation. Central airways are patent. PLEURA: No pleural effusion. LYMPH NODES: No bulky mediastinal, hilar or axillary lymphadenopathy. MEDIASTINUM: Great vessels are of normal caliber. Heart size is normal. No pericardial effusion. CORONARY ARTERY CALCIFICATIONS: Mild. CHEST WALL/BREASTS: No acute abnormality. UPPER ABDOMEN: This study was performed without contrast and with lower than standard dose, reducing the sensitivity for detection of small lesions in the upper abdomen. OSSEOUS STRUCTURES: No destructive bone lesion. CT/CT lung screening IMPRESSION: No suspicious pulmonary nodule. LUNG-RADS CATEGORY ASSESSMENT: 1. Negative. No nodules or definitely benign nodules. Continue annual screening with low-dose CT in 12 months. Probability of malignancy less than 1%. INCIDENTAL FINDINGS (S CATEGORY): Finding: No incidental findings. Significance category: Normal or normal variant. RECOMMENDATION: Low dose lung CT. overall in 1 year. Visual estimate of coronary calcified plaque burden: Mild. However, this exam cannot replace a dedicated cardiac CT calcium score for accurate assessment. LUNG-RADS CATEGORY: 1 -- NEGATIVE
== END 2023-02-17 13:22 | disposition home or self-care (01) ==
LOC: HO.CT 13:21
PROVIDERS: PCP Internal Medicine; Visit Provider Physician Assistant Medical
DX: Z12.2 Encounter for screening for malignant neoplasm of respiratory organs (principal); F17.210 Nicotine dependence, cigarettes, uncomplicated
CPT/HCPCS: 71271; G0296

== ENCOUNTER 2023-02-22 09:30 | Outpatient (REF) | payer MEDICARE, SELFPAY ==
[2023-02-22 13:22] LABS: MANUAL DIFF FLAG NO
[2023-02-22 13:28] LABS: Basophils Absolute Auto 0.1 X10*3/uL (0.0-0.2); Basophils Percent Auto 0.9 % (0-2); Eosinophils Absolute Auto 0.2 X10*3/uL (0.0-0.4); Eosinophils Percent Auto 2.7 % (0-4); Hematocrit 46.5 % (37.0-47.0); Hemoglobin 15.5 g/dl (12.0-16.0); Imm Gran Abs Auto 0.02 X10*3/uL (0.00-0.03); Imm Gran Pct Auto 0.2 % (0.0-0.4); Lymphocytes Percent Auto 24.8 % (20-40); Mean Corpuscular HGB Conc 33.3 g/dl (31.0-35.0); Mean Corpuscular Hemoglobin 30.7 pg (27.0-33.0); Mean Corpuscular Volume 92.1 fL (80.0-98.0); Mean Platelet Volume 11.4 fL (9.4-12.3); Monocytes Absolute Auto 0.6 X10*3/uL (0.1-1.2); Monocytes Percent Auto 7.9 % (2-11); Neutrophils Absolute Auto 5.2 x10*3/uL (2.0-8.3); Neutrophils Percent Auto 63.5 % (45-73); Platelet Count 230 X10*3/uL (160-400); Red Blood Count 5.05 X10*6/uL (4.20-5.50); Red Cell Distribution Width 12.5 % (11.0-16.0); White Blood Count 8.1 X10*3/uL (4.8-10.8)
== END 2023-02-22 09:31 | disposition home or self-care (01) ==
LOC: HO.HMGCLDS 09:30
PROVIDERS: PCP Internal Medicine; Visit Provider Internal Medicine Medical Oncology
DX: D75.1 Secondary polycythemia (principal)
CPT/HCPCS: 36415; 80053; 85025

== ENCOUNTER 2023-03-09 12:55 | Outpatient (REF) | payer MEDICARE, SELFPAY | END 2023-03-09 12:56 | disposition home or self-care (01) | LOC: HO.BBR 12:55 | PROVIDERS: PCP Internal Medicine; Visit Provider Internal Medicine Medical Oncology | DX: D75.1 Secondary polycythemia (principal) | CPT/HCPCS: 85014; 85018; 99195 ==

== ENCOUNTER 2023-04-10 11:08 | Outpatient (REF) | payer MEDICARE, SELFPAY | END 2023-04-10 11:09 | disposition home or self-care (01) | LOC: HO.BBR 11:08 | PROVIDERS: PCP Internal Medicine; Visit Provider Internal Medicine Medical Oncology | DX: D75.1 Secondary polycythemia (principal) | CPT/HCPCS: 85014; 85018; 99195 ==

== ENCOUNTER 2023-05-04 07:37 | Outpatient (REF) | payer MEDICARE, SELFPAY ==
[2023-05-04 11:57] LABS: Estimated Average Glucose 177 mg/dL; Hemoglobin A1c % 7.8 % (<6.0)
[2023-05-04 12:20] LABS: Alanine Aminotransferase 12 U/L (0-31); Aspartate Amino Transferase 14 U/L (5-31); Cholesterol 177 mg/dL (<200); HDL Cholesterol 34 mg/dL (>40); LDL Cholesterol Calculated 110 mg/dL (<100); Triglycerides 168 mg/dL (<150)
[2023-05-04 12:28] LABS: Vitamin D 25-OH Total 49.9 ng/mL (>30)
[2023-05-04 12:40] LABS: Creatinine Urine 65.47 mg/dL; Microalbum/Creatinine Ratio Ur 13.7 ug/mg cr (<30)
== END 2023-05-04 07:38 | disposition home or self-care (01) ==
LOC: HO.HMGCLDS 07:37
PROVIDERS: PCP Internal Medicine; Visit Provider Internal Medicine
DX: E11.3293 Type 2 diabetes mellitus with mild nonproliferative diabetic retinopathy without macular edema, bilateral (principal); E78.2 Mixed hyperlipidemia; M85.80 Other specified disorders of bone density and structure, unspecified site; E55.9 Vitamin D deficiency, unspecified; F17.210 Nicotine dependence, cigarettes, uncomplicated
CPT/HCPCS: 36415; 80061; 82043; 82306; 82570; 83036; 84450; 84460

== ENCOUNTER 2023-05-10 11:22 | Outpatient (REF) | payer MEDICARE, SELFPAY | END 2023-05-10 11:23 | disposition home or self-care (01) | LOC: HO.BBR 11:22 | PROVIDERS: PCP Internal Medicine; Visit Provider Internal Medicine Medical Oncology | DX: D75.1 Secondary polycythemia (principal) | CPT/HCPCS: 85018; 99195 ==

== ENCOUNTER 2023-05-11 14:24 | Outpatient (AMB) | payer MEDICARE, SELFPAY ==
--- NOTE | 2023-05-11 14:55 | A.OFFPC_ITS ---
Vital Signs 05/11/23 14:56 Height 5 ft 6 in Weight 200 lb 8 oz BMI 32.4 BP 100/62 Blood Pressure Location Rt brachial Position Sitting Pulse 105 H Pulse Source Pulse Oximeter Pulse Oximetry (%) 98 Oxygen Delivery Method Room Air Intake Visit Reasons: 3 Month follow up Intake Note: Pt is here to follow up for lab results Allergies empagliflozin [From Jardiance] Adverse Reaction (Intermediate, Verified 06/07/23 21:18) Increased thirst/dehydration atorvastatin Adverse Reaction (Unknown, Verified 06/07/23 21:18) muscle cramps rosuvastatin [From Crestor] Adverse Reaction (Unknown, Verified 06/07/23 21:18) muscle cramps metoprolol Adverse Reaction (Verified 06/07/23 21:18) elevated glucose zetia Allergy (Intermediate, Uncoded 06/07/23 21:18) Muscle Pain Medication List - Last Reconciled 06/07/23 by Anne Marie Miranda MD glipizide 5 mg PO BID metformin 1,000 mg PO BID multivitamin 1 tab PO DAILY pravastatin 80 mg PO DAILY silicon dioxide (bulk) (Silica Gel powder) 130 ea miscellaneous DAILY Tobacco use date assessed: 05/11/23 Fall risk assessment: No Falls in past year Last assessed Fall Risk: 05/11/23 Dental Screening Dental Screen Date: 05/11/23 Did you have a dental visit in the last 12 months?: No Did you have a dental problem in the last 6 months where you did not have access to dental care?: No Was dental information given to patient?: No HPI 3 Month follow up HPI Details 67-year-old lady here today for follow-u p on her diabetes mellitus and hyperlipidemia. Patient has been her medications as directed, but admits to being noncompliant with her diet this past month. Latest hemoglobin A1c has gone up to 7.8% and LDL cholesterol above 100 mg/dL. 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 Mixed dyslipidemia Mild cognitive impairment Demyelinating disorder Migraine Anxiety disorder Erythrocytosis Polycythemia Osteopenia (~2005) Menopause Nicotine dependence, cigarettes, uncomplicated Obesity Vitamin D deficiency Adenoma of left adrenal gland Shoulder pain, right Tendinitis of left ankle Carpal tunnel syndrome Peroneal neuropathy Surgical History History of tonsillectomy History of colonoscopy History of lumbar puncture History of surgical removal of ganglion cyst Family History Father Cancer Mother Kidney failure Diabetes mellitus Elevated cholesterol Brother AIDS Sister Breast cancer Brother No problems noted. Sister No problems noted. Social History Housing: House Alcohol intake: current Patient Tobacco Use Status: Current everyday Tobacco user Cigarette Packs Per Day: 1 Years Smoked: (onset 22yo, 1ppd x 45yrs, 45pyh) e-Cigarette/Vaping Use: Former Use service: No Current occupational status: retired Current occupation: lt handed Cognitive needs: No Hearing needs: No Vision needs: Yes Questionnaire Thrive Questionnaire Date Thrive assessed: 07/20/22 DIDI-7 AMB Questionnaire DIDI-7 Date DIDI - 7 assessed: 11/10/22 Source: Developed by Drs. Jesus Cooper, Carly Cochran, Cuba Hannah and colleagues, with an educational raisa from [employer]. Review of Systems Const Denies difficulty sleeping, Denies fatigue, Denies fever(s) and Denies weakness Eyes Reports no additional complaints ENT Reports no additional complaints Card Denies chest pain, Denies irregular heart rhythm, Denies lightheadedness, Denies radiating jaw, neck or arm pain and Denies dyspnea Resp Denies chest congestion, Denies cough, Denies excessive phlegm production, Denies pain on inspiration and Denies dyspnea GI Denies change in bowel habits, Denies dyspepsia, Denies heartburn and Denies nausea Reports no additional complaints Musc Reports as per HPI Skin/Breast Denies lesions and Denies rash Neuro Denies weakness Endo Denies fatigue Physical exam (Primary Care) Vital Signs: Last Vital Signs Pulse 105 H 05/11/23 14:56 BP 100/62 05/11/23 14:56 Pulse Ox 98 05/11/23 14:56 Oxygen Delivery Method Room Air 05/11/23 14:56 BMI result Body Mass Index 32.4 Tobacco/Smoking Status: Tobacco use Status Tobacco use date assessed 05/11/23 05/11/23 15:01 Patient Tobacco Use Status Current everyday Tobacco 05/11/23 14:56 e-Cigarette/Vaping Use Former Use 05/11/23 14:56 Thrive Assessment: Date of Thrive Assessment Date Thrive assessed 07/20/22 05/11/23 14:56 Const Other: Alert oriented x3, no acute distress noted, ambulatory normal gait Nutritional Appearance: obese Orientation/consciousness: patient oriented x3 HENMT Head: Yes normocephalic Ears: external ears normal, TM's normal bilaterally and EAC's normal General nose exam: Normal external nose present Face and sinus: Yes face symmetric Mouth: Normal oral and palatal mucosa present, oropharynx normal and moist mucous membranes Eyes General: appearance normal, both eyes and all related structures Neck Other: Supple, no lymphadenopathy, no thyroid enlargement Resp Auscultation: clear to auscultation bilaterally Cardio Other: S1-S2 present regular rate and rhythm GI Other: Morbidly obese, Normal bowel sounds, soft, nontender, no mass palpated General: Yes no CVA tenderness Back/Spine/Pelvis Back: no CVA tenderness and No back tenderness Skin General skin exam: no rashes or lesions noted Neuro General: patient oriented x3, gait normal, moves all extremities, Normal light touch and pain sensation and no focal motor deficits Extrem General: Yes full ROM, Yes no joint enlargement and Yes no clubbing, cyanosis or edema Results Reviewed Results Reviewed: Name: Claude Nog Age/Sex: 67/F : 1955 Unit#: [id number] Attend Dr: Anne Marie Miranda MD Re05/04/23 Status: DEP [facility] Disch: SPEC : [id number] KAYLYN: 05/04/23 STATUS: COMP REQ : [id number] RECD: 05/04/[address]: Anne Marie Miranda MD COMP: 05/04/23 ENTERED: 05/04/[address]: ORDERED: Hgb A1c Test Result Flag Reference Site A1c % 7.8 H <6.0 % Hemoglobin A1C Reference Range Adults: 4.8 - 6.0 % Non diabetic: < 6.0 % Goal: < 7.0 % Additional Action Suggested: > 8.0 % Note: Hemoglobin A1c results are invalid for patients with abnormal amounts of HbF. Blood transfusions may impact the HbA1c concentration in the patient sample. Est. Avg. Gluc 177 mg/dL eAG = Estimated average glucose which is %A1C expressed as average glucose, using the formula of the F6T-Pthqfca Average Glucose study (ADAG), Diabetes Care, Vol.31,#8, 2007 NTERED: 05/04/23 [facility] DR: ORDERED: AST, ALT, Lipid Panel, Vitamin D 25-OH Test Result Flag Reference Site AST (GOT) 14 5-31 U/L ALT (GPT) 12 0-31 U/L Triglyceride 168 H <150 mg/dL Desirable Triglyceride: less than 150 mg/dL Borderline High Triglyceride 150-199 mg/dL High Triglyceride: 200-499 mg/dL Very High Triglyceride: greater than or equal to 5OO mg/dL Cholesterol 177 <200 mg/dL Desirable Cholesterol: less than 200 mg/dL Borderline High Cholesterol: 200-239 mg/dL High Cholesterol: greater than 239 mg/dL LDL Calculated 110 H <100 mg/dL Desirable LDL: less than 100 mg/dL Near Optimal/Above Optimal LDL: 110-129 mg/dL Borderline High LDL: 130-159 mg/dL High LDL: 160-189 mg/dL Very High LDL: greater than or equal to 190 mg/dL HDL 34 L >40 mg/dL Desirable HDL: greater than 40 mg/dL Note: This HDL assay may give artificially low results in patients with liver disease. 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 Stressed importance of taking medications as directed, continue with metformin and restart taking glipizide again. Reinforced adherence to diabetic diet, stop eating a lot of pastries, (2) Mixed dyslipidemia: Code(s): E78.2 - Mixed hyperlipidemia Plan: Reviewed recent fasting lipid profile with patient with LDL cholesterol not at goal, but lower than last check . Intolerant of simvastatin, rosuvastatin or atorvastatin, will continue with pravastatin 80 mg once a day and reinforced adherence to low-cholesterol diet and regular exercise, at least 30 minutes 3 to 4 times a week. Advised patient to make healthy food choices, eat more fruits, vegetables, whole grains, wild caught fish and low-fat dairy. Limit amount of meat and fried or fatty food products, as well as processed foods and fast foods. Follow-up scheduled with repeat fasting lipid panel in 3 months. Orders: Orders Alanine Aminotransferase 05/11/23 - Type 2 diabetes mellitus with mild nonproliferative diabetic retinopathy without macular edema, bilateral, E78.2 - Mixed hyperlipidemia, E66.9 - Obesity, unspecified Aspartate Amino Transferase 05/11/23 - Type 2 diabetes mellitus with mild nonproliferative diabetic retinopathy without macular edema, bilateral, E78.2 - Mixed hyperlipidemia, E66.9 - Obesity, unspecified Basic Metabolic Panel Fasting 05/11/23 - Type 2 diabetes mellitus with mild nonproliferative diabetic retinopathy without macular edema, bilateral, E78.2 - Mixed hyperlipidemia, E66.9 - Obesity, unspecified Hemoglobin A1c 05/11/23 - Type 2 diabetes mellitus with mild nonproliferative diabetic retinopathy without macular edema, bilateral, E78.2 - Mixed hyperlipidemia, E66.9 - Obesity, unspecified Lipid Panel 05/11/23 - Type 2 diabetes mellitus with mild nonproliferative diabetic retinopathy without macular edema, bilateral, E78.2 - Mixed hyperlipidemia, E66.9 - Obesity, unspecified Microalbumin, Random (w Creat) 05/11/23 - Type 2 diabetes mellitus with mild nonproliferative diabetic retinopathy without macular edema, bilateral, E78.2 - Mixed hyperlipidemia, E66.9 - Obesity, unspecified Coding Level of Care Code Est Pt Level 4 (68872) Diagnoses 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
[2023-05-11 14:56] VITALS: BP 100/62; PULSE 105; O2SAT 98; BMI 32.4
== END 2023-05-11 15:40 | disposition home or self-care (01) ==
PROVIDERS: PCP Internal Medicine; Visit Provider Internal Medicine
DX: E11.3293 Type 2 diabetes mellitus with mild nonproliferative diabetic retinopathy without macular edema, bilateral (principal); E78.2 Mixed hyperlipidemia
CPT/HCPCS: 99214

== ENCOUNTER 2023-06-03 10:38 | Outpatient (REF) | payer MEDICARE, SELFPAY ==
[2023-06-03 11:29] LABS: MANUAL DIFF FLAG NO
[2023-06-03 11:40] LABS: Basophils Absolute Auto 0.1 X10*3/uL (0.0-0.2); Basophils Percent Auto 1.1 % (0-2); Eosinophils Absolute Auto 0.2 X10*3/uL (0.0-0.4); Eosinophils Percent Auto 2.1 % (0-4); Hematocrit 43.5 % (37.0-47.0); Hemoglobin 14.1 g/dl (12.0-16.0); Imm Gran Abs Auto 0.04 X10*3/uL (0.00-0.03); Imm Gran Pct Auto 0.5 % (0.0-0.4); Lymphocytes Absolute Auto 2.1 X10*3/uL (1.2-4.9); Lymphocytes Percent Auto 26.5 % (20-40); Mean Corpuscular HGB Conc 32.4 g/dl (31.0-35.0); Mean Corpuscular Hemoglobin 27.6 pg (27.0-33.0); Mean Corpuscular Volume 85.1 fL (80.0-98.0); Mean Platelet Volume 11.6 fL (9.4-12.3); Monocytes Absolute Auto 0.7 X10*3/uL (0.1-1.2); Neutrophils Percent Auto 61.8 % (45-73); Platelet Count 231 X10*3/uL (160-400); Red Blood Count 5.11 X10*6/uL (4.20-5.50); Red Cell Distribution Width 13.4 % (11.0-16.0); White Blood Count 8.1 X10*3/uL (4.8-10.8)
[2023-06-03 12:01] LABS: Alanine Aminotransferase 12 U/L (0-31); Albumin Level 4.5 g/dL (3.5-5.0); Alkaline Phosphatase 84 U/L (39-117); Anion Gap 14 (12-20); Aspartate Amino Transferase 15 U/L (5-31); Bilirubin Total 0.4 mg/dL (0.0-1.0); Blood Urea Nitrogen 7 mg/dL (9-16); Calcium 9.5 mg/dL (8.4-10.2); Carbon Dioxide 27 mmol/L (22-29); Chloride 102 mmol/L (96-108); Estimated Glomerular Filt Rate > 60; Glucose Random 125 mg/dL (60-115); Potassium 3.6 mmol/L (3.3-5.1); Sodium 139 mmol/L (135-145); Total Protein 7.8 g/dL (6.5-8.0)
== END 2023-06-03 10:39 | disposition home or self-care (01) ==
LOC: HO.HMGCLDS 10:38
PROVIDERS: PCP Internal Medicine; Visit Provider Internal Medicine Medical Oncology
DX: D75.1 Secondary polycythemia (principal)
CPT/HCPCS: 36415; 80053; 85025

== ENCOUNTER 2023-06-14 11:42 | Outpatient (REF) | payer MEDICARE, SELFPAY | END 2023-06-14 11:43 | disposition home or self-care (01) | LOC: HO.BBR 11:42 | PROVIDERS: PCP Internal Medicine; Visit Provider Internal Medicine Medical Oncology | DX: D75.1 Secondary polycythemia (principal) | CPT/HCPCS: 85018; 99195 ==

== ENCOUNTER 2023-08-09 12:31 | Outpatient (REF) | payer MEDICARE, SELFPAY | END 2023-08-09 12:32 | disposition home or self-care (01) | LOC: HO.BBR 12:31 | PROVIDERS: PCP Internal Medicine; Visit Provider Internal Medicine Medical Oncology | DX: D75.1 Secondary polycythemia (principal) | CPT/HCPCS: 85018; 99195 ==

== ENCOUNTER 2023-08-15 07:54 | Outpatient (REF) | payer MEDICARE, SELFPAY ==
[2023-08-15 13:08] LABS: Estimated Average Glucose 131 mg/dL; Hemoglobin A1c % 6.2 % (<6.0)
[2023-08-15 13:21] LABS: Alanine Aminotransferase 11 U/L (0-31); Anion Gap 14 (12-20); Aspartate Amino Transferase 14 U/L (5-31); Blood Urea Nitrogen 9 mg/dL (9-16); Carbon Dioxide 26 mmol/L (22-29); Chloride 102 mmol/L (96-108); Cholesterol 159 mg/dL (<200); Estimated Glomerular Filt Rate > 60; Glucose Fasting 161 mg/dL (60-99); HDL Cholesterol 30 mg/dL (>40); LDL Cholesterol Calculated 97 mg/dL (<100); Potassium 3.9 mmol/L (3.3-5.1); Sodium 138 mmol/L (135-145); Triglycerides 161 mg/dL (<150)
[2023-08-15 13:55] LABS: Creatinine Urine 96.78 mg/dL; Microalbum/Creatinine Ratio Ur 38.2 ug/mg cr (<30)
== END 2023-08-15 07:55 | disposition home or self-care (01) ==
LOC: HO.HMGCLDS 07:54
PROVIDERS: PCP Internal Medicine; Visit Provider Internal Medicine
DX: E11.3293 Type 2 diabetes mellitus with mild nonproliferative diabetic retinopathy without macular edema, bilateral (principal); E78.2 Mixed hyperlipidemia; E66.9 Obesity, unspecified
CPT/HCPCS: 36415; 80048; 80061; 82043; 82570; 83036; 84450; 84460

== ENCOUNTER 2023-09-01 09:57 | Outpatient (AMB) | payer MEDICARE, SELFPAY ==
--- NOTE | 2023-09-01 10:01 | A.OFFPC_ITS ---
Vital Signs 09/01/23 10:33 Height 5 ft 6 in Weight 197 lb BMI 31.8 BP 102/60 Blood Pressure Location Lt brachial Position Sitting Pulse 103 H Pulse Source Pulse Oximeter Pulse Oximetry (%) 98 Oxygen Delivery Method Room Air Intake Visit Reasons: 3 Month follow up Intake Note: Pt is here today for her 3 months f/u Allergies empagliflozin [From Jardiance] Adverse Reaction (Intermediate, Verified 09/03/23 22:33) Increased thirst/dehydration atorvastatin Adverse Reaction (Unknown, Verified 09/03/23 22:33) muscle cramps rosuvastatin [From Crestor] Adverse Reaction (Unknown, Verified 09/03/23 22:33) muscle cramps metoprolol Adverse Reaction (Verified 09/03/23 22:33) elevated glucose zetia Allergy (Intermediate, Uncoded 09/03/23 22:33) Muscle Pain Medication List - Last Reconciled 09/01/23 by Anne Marie Miranda MD glipizide 5 mg PO QAM metformin 1,000 mg PO BID multivitamin 1 tab PO DAILY pravastatin 80 mg PO DAILY silicon dioxide (bulk) (Silica Gel powder) 130 ea miscellaneous DAILY Tobacco use date assessed: 09/01/23 Fall risk assessment: No Falls in past year Last assessed Fall Risk: 09/01/23 Dental Screening Dental Screen Date: 09/01/23 Did you have a dental visit in the last 12 months?: No Was dental information given to patient?: Patient declined HPI 3 Month follow up HPI Details 68-year-old lady here today for follow-u p on her diabetes mellitus, hyperlipidemia. Has been compliant with taking her medications but has decreased her glipizide dose to just once in the morning as she has been experiencing hypoglycemic attacks which he takes her evening dose of glipizide. She is currently up-to-date with her diabetes eye exam, has been trying to follow recommended diet, and has been exercising regularly. She however has been experiencing intermittent episodes of right upper quadrant discomfort, nonradiating, not accompanied by any nausea or change in bowel habits. 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 Mixed dyslipidemia Mild cognitive impairment Demyelinating disorder Migraine Anxiety disorder Erythrocytosis Polycythemia Osteopenia (~2005) Menopause Nicotine dependence, cigarettes, uncomplicated Obesity Vitamin D deficiency Adenoma of left adrenal gland Shoulder pain, right Tendinitis of left ankle Carpal tunnel syndrome Peroneal neuropathy Surgical History History of tonsillectomy History of colonoscopy History of lumbar puncture History of surgical removal of ganglion cyst Family History Father Cancer Mother Kidney failure Diabetes mellitus Elevated cholesterol Brother AIDS Sister Breast cancer Brother No problems noted. Sister No problems noted. Social History Housing: House Alcohol intake: current Patient Tobacco Use Status: Current everyday Tobacco user Cigarette Packs Per Day: 1 Years Smoked: (onset 22yo, 1ppd x 45yrs, 45pyh) e-Cigarette/Vaping Use: Former Use service: No Current occupational status: retired Current occupation: lt handed Cognitive needs: No Hearing needs: No Vision needs: Yes Questionnaire PHQ-9 Over the last 2 weeks, how often have you been bothered by any of the following problems? 1. Little interest or pleasure in doing things: not at all 2. Feeling down, depressed, or hopeless: not at all 3. Trouble falling or staying asleep, or sleeping too much: not at all 4. Feeling tired or having little energy: not at all 5. Poor appetite or overeating: not at all 6. Feeling bad about yourself - or that you are a failure or have let yourself or your family down: not at all 7. Trouble concentrating on things, such as reading the newspaper or watching television: not at all 8. Moving or speaking so slowly that other people could have noticed. Or the opposite - being so fidgety or restless that you have been moving around a lot more than usual: not at all 9. Thoughts that you would be better off or of hurting yourself in some way: not at all Total score: 0 Depression Screening Interpretation: Negative Depression Screening Done: Yes 01884 - PHQ-9 Billing: Yes Source: Developed by Drs. Jesus Cooper, Carly Cochran, Cuba Hannah and colleagues, with an educational raisa from [employer] Thrive Questionnaire Date Thrive assessed: 09/01/23 I am a: Patient What is your living situation today?: I have a steady place to live Within the past 12 months, did the food you bought not last and you didn't have the money to get more?: Never true Within the past 12 months, did you worry whether your food would run out before you got money to buy more?: Never true Do you have trouble paying for medicines?: No Do you have trouble getting transportation to medical appointments?: No Do you have trouble paying your heating and electricity bill?: No Do you have trouble taking care of your child, family member or friend?: No Do you have trouble with day-to-day activities such as bathing, preparing meals, shopping, managing finances, etc.?: No Are you currently unemployed and looking for a job?: No Are you interested in more education?: No THRIVE Score: 0 AUDIT C Alcohol Use Questionnaire (AUDIT-C) 1. How often do you have a drink containing alcohol?: Never 3. How often do you have six or more drinks on one occasion?: Never Total Score: 0 DIDI-7 AMB Questionnaire DIDI-7 Date DIDI - 7 assessed: 09/01/23 Feeling nervous, anxious, or on edge: 0 = Not at all Not being able to stop or control worryin = Not at all Worrying too much about different things: 0 = Not at all Trouble relaxin = Not at all Being so restless that it is hard to sit still: 0 = Not at all Becoming easily annoyed or irritable: 0 = Not at all Feeling afraid as if something awful might happen: 0 = Not at all Total DIDI-7 score (0-4 normal; 5-9 mild; 10-14 moderate; 15-21 severe): 0 Source: Developed by Drs. Jesus Cooper, Carly Cochran, Cuba Hannah and colleagues, with an educational raisa from [employer] DIDI-7 Assessment Billing DIDI-7 Assessment Tool: DIDI-7 Assessment 15461 Review of Systems Const Denies body aches, Denies difficulty sleeping and Denies fatigue Eyes Reports no additional complaints ENT Reports no additional complaints Card Denies chest pain, Denies rapid heart rate, Denies irregular heart rhythm, Denies lightheadedness, Denies radiating jaw, neck or arm pain and Denies dyspnea Resp Denies chest congestion, Denies cough and Denies dyspnea GI Reports as per HPI, Denies change in bowel habits, Denies heartburn and Denies nausea Reports no additional complaints Musc Reports as per HPI Skin/Breast Denies lesions and Denies rash Neuro Reports no additional complaints Endo Reports no additional complaints and Denies fatigue Physical exam (Primary Care) Vital Signs: Last Vital Signs Pulse 103 H 09/01/23 10:33 BP 102/60 09/01/23 10:33 Pulse Ox 98 09/01/23 10:33 Oxygen Delivery Method Room Air 09/01/23 10:33 BMI result Body Mass Index 31.8 Tobacco/Smoking Status: Tobacco use Status Tobacco use date assessed 09/01/23 09/01/23 10:02 Patient Tobacco Use Status Current everyday Tobacco 09/01/23 10:01 e-Cigarette/Vaping Use Former Use 09/01/23 10:01 Depression Screening Interpretation: Negative Thrive Assessment: Date of Thrive Assessment Date Thrive assessed 07/20/22 09/01/23 10:01 Const Other: Alert oriented x3, no acute distress noted, ambulatory normal gait Nutritional Appearance: obese Orientation/consciousness: patient oriented x3 HENMT Head: Yes normocephalic Ears: external ears normal General nose exam: Normal external nose present Face and sinus: Yes face symmetric Mouth: Normal oral and palatal mucosa present, oropharynx normal and moist mucous membranes Eyes General: appearance normal, both eyes and all related structures Neck Other: Supple, no lymphadenopathy, no thyroid enlargement Resp Auscultation: clear to auscultation bilaterally Cardio Other: S1-S2 present regular rate and rhythm GI Other: Morbidly obese, Normal bowel sounds, soft, nontender, no mass palpated General: Yes no CVA tenderness Back/Spine/Pelvis Back: no CVA tenderness and No back tenderness Skin General skin exam: no rashes or lesions noted Neuro General: patient oriented x3, gait normal, moves all extremities, Normal light touch and pain sensation and no focal motor deficits Extrem General: Yes full ROM, Yes no joint enlargement and Yes no clubbing, cyanosis or edema Results Reviewed Results Reviewed: Laboratory Tests 08/15/23 08:01 Estimat Average Glucose 131 Hemoglobin A1c % 6.2 H Name: Claude Ngo Age/Sex: 68/F : 1955 Unit#: [id number] Attend Dr: Anne Marie Miranda MD Re08/15/23 Status: [facility]P [facility]: SPEC : [id number] KAYLYN: 08/15/23 STATUS: COMP REQ : [id number] RECD: 08/15/23-[address]: Anne Marie Miranda MD COMP: 08/15/23 ENTERED: 08/15/[address]: ORDERED: Met Prof Fast, AST, ALT, Lipid Panel Test Result Flag Reference Sodium 138 135-145 mmol/L Potassium 3.9 3.3-5.1 mmol/L CL 102 96-108 mmol/L CO2 26 22-29 mmol/L Gap 14 12-20 BUN 9 9-16 mg/dL Creat 0.76 0.5-1.4 mg/dL EGFR > 60 NOTE: For -[place]ij[place] individuals, multiply the result by 1.210. Chronic Kidney Disease: Estimated GFR < 60 mL/min/1.73m2 Severe Kidney Disease: Estimated GFR < 15 mL/min/1.73m2 FBS 161 H 60-99 mg/dL A fasting glucose of 126 mg/dl or greater on more than one occasion is considered diagnostic of diabetes. CA 9.0 8.4-10.2 mg/dL AST (GOT) 14 5-31 U/L ALT (GPT) 11 0-31 U/L Triglyceride 161 H <150 mg/dL Desirable Triglyceride: less than 150 mg/dL Borderline High Triglyceride 150-199 mg/dL High Triglyceride: 200-499 mg/dL Very High Triglyceride: greater than or equal to 5OO mg/dL Cholesterol 159 <200 mg/dL Desirable Cholesterol: less than 200 mg/dL Borderline High Cholesterol: 200-239 mg/dL High Cholesterol: greater than 239 mg/dL LDL Calculated 97 <100 mg/dL Desirable LDL: less than 100 mg/dL Near Optimal/Above Optimal LDL: 110-129 mg/dL Borderline High LDL: 130-159 mg/dL High LDL: 160-189 mg/dL Very High LDL: greater than or equal to 190 mg/dL HDL 30 L >40 mg/dL Desirable HDL: greater than 40 mg/dL Note: This HDL assay may give artificially low results in patients with liver disease. Assessment and Plan Assessment & Plan (1) Abdominal discomfort in right upper quadrant: Code(s): R10.11 - Right upper quadrant pain Plan: Abdominal ultrasound ordered (2) Diabetes mellitus with microalbuminuria, without long-term current use of insulin: Code(s): E11.29 - Type 2 diabetes mellitus with other diabetic kidney complication; R80.9 - Proteinuria, unspecified Plan: Recent lab results reviewed with patient, with sugar and hemoglobin A1c stable and at goal. Continue metformin 1000 mg twice a day and has been taking glipizide 5 mg once a day in a.m. as she has been having hypoglycemic attacks when she takes it at night. continue to check fasting blood sugar at home, maintain log and bring to next appointment for review. Reinforced diabetic diet and regular exercise with patient. Counseled regarding importance of yearly diabetes retinopathy screening, currently up-to-date goes to [facility] in [place]. Patient advised to inspect feet daily, for any signs of injury, callus or infection. Compliance with diet and regular exercise again stressed. Blood pressure goal is less than 130/80, goal LDL is less than 100 and goal hemoglobin A1c is less than 7% follow-up appointment made in-3--months, after fasting labs done. (3) Immunization refused: Code(s): Z28.21 - Immunization not carried out because of patient refusal (4) Mixed dyslipidemia: Code(s): E78.2 - Mixed hyperlipidemia Plan: Latest fasting lipids showed mildly elevated triglycerides with normal LDL cholesterol, continued on pravastatin 80 mg daily, in addition to adhering to recommended diet and getting regular exercise. Repeat another fasting lipid panel 3 month Orders: Orders Hemoglobin A1c 11/13/23 E11.29 - Type 2 diabetes mellitus with other diabetic kidney complication, E78.2 - Mixed hyperlipidemia, E78.5 - Hyperlipidemia, unspecified, R80.9 - Proteinuria, unspecified Aspartate Amino Transferase 11/13/23 E11.29 - Type 2 diabetes mellitus with other diabetic kidney complication, E78.2 - Mixed hyperlipidemia, E78.5 - Hyperlipidemia, unspecified, R80.9 - Proteinuria, unspecified US abdomen complete 09/01/23 R10.11 - Right upper quadrant pain Alanine Aminotransferase 11/13/23 E11.29 - Type 2 diabetes mellitus with other diabetic kidney complication, E78.2 - Mixed hyperlipidemia, E78.5 - Hyperlipidemia, unspecified, R80.9 - Proteinuria, unspecified Lipid Panel 11/13/23 E11.29 - Type 2 diabetes mellitus with other diabetic kidney complication, E78.2 - Mixed hyperlipidemia, E78.5 - Hyperlipidemia, u nspecified, R80.9 - Proteinuria, unspecified Basic Metabolic Panel Fasting 11/13/23 E11.29 - Type 2 diabetes mellitus with other diabetic kidney complication, E78.2 - Mixed hyperlipidemia, E78.5 - Hyperlipidemia, unspecified, R80.9 - Proteinuria, unspecified Coding Level of Care Code Est Pt Level 4 (70027) Diagnoses Abdominal discomfort in right upper quadrant R10.11 Diabetes mellitus with microalbuminuria, without long-term current use of insulin E11.29; R80.9 Immunization refused Z28.21 Mixed dyslipidemia E78.2 Additional Codes DIDI-7 Assessment Billing - DIDI-7 Assessment Tool: DIDI-7 Assessment [id number] ([id number])
[2023-09-01 10:33] VITALS: BP 102/60; PULSE 103; O2SAT 98; BMI 31.8
== END 2023-09-01 11:11 | disposition home or self-care (01) ==
PROVIDERS: PCP Internal Medicine; Visit Provider Internal Medicine
DX: R10.11 Right upper quadrant pain (principal); E11.29 Type 2 diabetes mellitus with other diabetic kidney complication; R80.9 Proteinuria, unspecified; Z28.21 Immunization not carried out because of patient refusal; E78.2 Mixed hyperlipidemia
CPT/HCPCS: 99214

== ENCOUNTER 2023-09-11 08:11 | Outpatient (REF) | payer MEDICARE, SELFPAY ==
--- NOTE | ~2023-09-11 | US_ITS ---
EXAMINATION: US ABDOMEN COMPLETE CLINICAL INFORMATION: Right upper quadrant pain. COMPARISON: CT abdomen without and with contrast 05/20/2021. TECHNIQUE: Real-time imaging of the abdominal viscera. FINDINGS: PANCREAS: Normal. ABDOMINAL AORTA: The proximal, mid, and distal segments are normal in caliber. INFERIOR VENA CAVA: Visualized portions are normal. LIVER: The liver is normal in size. The liver contour is normal. There is diffuse increased liver parenchymal echogenicity, with pericholecystic sparing. No focal hepatic lesion. There is no intrahepatic biliary duct dilatation seen. GALLBLADDER: A 2 mm nonmobile polyp is seen. The gallbladder is physiologically distended without evidence of stones, wall thickening or pericholecystic fluid. Mild echogenic bile is seen. COMMON BILE DUCT: Normal in caliber measuring 0.3 cm in diameter. RIGHT KIDNEY: Normal. No hydronephrosis. No renal calculi or focal parenchymal lesions. The kidney measures 10.5 cm in maximum dimension. LEFT KIDNEY: At the lower pole, a 1.2 cm benign, simple cyst is seen, for which no imaging follow-up is recommended. No hydronephrosis or renal calculi. The kidney measures 10.4 cm in maximum dimension. SPLEEN: Normal. The spleen measures 9.9 cm in maximum dimension. FREE FLUID: None. US/US abdomen complete IMPRESSION: 1. There is generalized increase in hepatic echotexture, consistent with fatty infiltration or hepatocellular disease. Please correlate clinically. Characteristic pericholecystic sparing favors fatty infiltration. No focal hepatic mass or intrahepatic biliary dilatation is seen. 2. A 2 mm nonmobile gallbladder polyp is of incidental note.
== END 2023-09-11 08:12 | disposition home or self-care (01) ==
LOC: HO.HMGCX 08:11
PROVIDERS: PCP Internal Medicine; Visit Provider Internal Medicine
DX: R10.11 Right upper quadrant pain (principal)
CPT/HCPCS: 76700

== ENCOUNTER 2023-10-10 12:02 | Outpatient (REF) | payer MEDICARE, SELFPAY | END 2023-10-10 12:03 | disposition home or self-care (01) | LOC: HO.BBR 12:02 | PROVIDERS: PCP Internal Medicine; Visit Provider Internal Medicine Medical Oncology | DX: D75.1 Secondary polycythemia (principal) | CPT/HCPCS: 85014; 85018; 99195 ==

== ENCOUNTER 2023-11-10 12:30 | Outpatient (REF) | payer MEDICARE, SELFPAY | END 2023-11-10 12:31 | disposition home or self-care (01) | LOC: HO.MAMMO 12:30 | PROVIDERS: PCP Internal Medicine; Visit Provider Internal Medicine | DX: Z12.31 Encounter for screening mammogram for malignant neoplasm of breast (principal) | CPT/HCPCS: 77063; 77067 ==

== ENCOUNTER → 2023-11-10 12:45 | Outpatient (BNV) | payer MEDICARE, SELFPAY | PROVIDERS: PCP Internal Medicine; Visit Provider Radiology Diagnostic Radiology | DX: Z12.31 Encounter for screening mammogram for malignant neoplasm of breast (principal) | CPT/HCPCS: 77063; 77067 ==

== ENCOUNTER 2023-11-17 06:56 | Outpatient (REF) | payer MEDICARE, SELFPAY ==
[2023-11-17 10:41] LABS: Estimated Average Glucose 148 mg/dL; Hemoglobin A1c % 6.8 % (<6.0)
[2023-11-17 10:48] LABS: Alanine Aminotransferase 11 U/L (0-31); Anion Gap 14 (12-20); Aspartate Amino Transferase 13 U/L (5-31); Blood Urea Nitrogen 8 mg/dL (9-16); Calcium 9.2 mg/dL (8.4-10.2); Carbon Dioxide 26 mmol/L (22-29); Chloride 103 mmol/L (96-108); Cholesterol 177 mg/dL (<200); Estimated Glomerular Filt Rate > 60; Glucose Fasting 146 mg/dL (60-99); HDL Cholesterol 31 mg/dL (>40); LDL Cholesterol Calculated 115 mg/dL (<100); Potassium 4.2 mmol/L (3.3-5.1); Sodium 139 mmol/L (135-145); Triglycerides 156 mg/dL (<150)
== END 2023-11-17 06:57 | disposition home or self-care (01) ==
LOC: HO.HMGCLDS 06:56
PROVIDERS: PCP Internal Medicine; Visit Provider Internal Medicine
DX: E11.29 Type 2 diabetes mellitus with other diabetic kidney complication (principal); R80.9 Proteinuria, unspecified; E78.2 Mixed hyperlipidemia
CPT/HCPCS: 36415; 80048; 80061; 83036; 84450; 84460

== ENCOUNTER 2023-11-20 14:14 | Outpatient (AMB) | payer MEDICARE, SELFPAY ==
[2023-11-20 14:17] VITALS: BP 120/68; PULSE 119; BMI 32.7
--- NOTE | 2023-11-20 14:17 | MHC.OFFVIS ---
Vital Signs 11/20/23 14:17 Height 5 ft 6 in Weight 202 lb 13.204 oz BMI 32.7 BP 120/68 Blood Pressure Location Lt brachial Position Sitting Pulse 119 H Pulse Source Monitor Intake Visit Reasons: 2 yr follow up Allergies empagliflozin [From Jardiance] Adverse Reaction (Intermediate, Verified 09/03/23 22:33) Increased thirst/dehydration atorvastatin Adverse Reaction (Unknown, Verified 09/03/23 22:33) muscle cramps rosuvastatin [From Crestor] Adverse Reaction (Unknown, Verified 09/03/23 22:33) muscle cramps metoprolol Adverse Reaction (Verified 09/03/23 22:33) elevated glucose zetia Allergy (Intermediate, Uncoded 09/03/23 22:33) Muscle Pain Medication List - Last Reconciled 11/20/23 by Supa Horta MD glipizide 5 mg PO QAM metformin 1,000 mg PO BID multivitamin 1 tab PO DAILY pravastatin 80 mg PO DAILY silicon dioxide (bulk) (Silica Gel powder) 130 ea miscellaneous DAILY HPI Comments Details: Claude comes for follow-up. She continues to have challenges with management of diabetes. He otherwise has no obvious cardiac symptoms. She is currently on metoprolol therapy because she says metoprolol as affecting and making her sugar levels higher. She has not noticed any change in her symptoms. Denies any prolonged palpitation irregular heartbeat. Denies any lightheadedness including orthostatic lightheadedness or syncope. Denies any exertional chest pain or shortness of breath. She used to get regular phlebotomies for polycythemia, this was then stopped due to elevated heart rate. On a smart monitor she is noted to average heart rate noted to be in the mid 90s. 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 Mixed dyslipidemia Mild cognitive impairment Demyelinating disorder Migraine Anxiety disorder Erythrocytosis Polycythemia Osteopenia (~2005) Menopause Nicotine dependence, cigarettes, uncomplicated Obesity Vitamin D deficiency Adenoma of left adrenal gland Shoulder pain, right Tendinitis of left ankle Carpal tunnel syndrome Peroneal neuropathy Surgical History History of tonsillectomy History of colonoscopy History of lumbar puncture History of surgical removal of ganglion cyst Family History Father Cancer Mother Kidney failure Diabetes mellitus Elevated cholesterol Brother AIDS Sister Breast cancer Brother No problems noted. Sister No problems noted. Social History Housing: House Alcohol intake: current Patient Tobacco Use Status: Current everyday Tobacco user Cigarette Packs Per Day: 1 Years Smoked: (onset 22yo, 1ppd x 45yrs, 45pyh) e-Cigarette/Vaping Use: Former Use service: No Current occupational status: retired Current occupation: lt handed Cognitive needs: No Hearing needs: No Vision needs: Yes Review of Systems Const Denies weakness ENT Denies dizziness Card Denies chest pain, Denies chest pain with activity, Denies syncope, Denies rapid heart rate, Denies pedal edema, Denies edema, Denies leg edema, Denies lightheadedness, Denies palpitations, Denies dyspnea, Denies dyspnea on exertion and Denies orthopnea Resp Denies cough, Denies dyspnea and Denies dyspnea on exertion GI Denies hematochezia and Denies change in stool character Musc Denies abnormal gait, Denies muscle cramps, Denies muscle weakness, Denies numbness, Denies radiating pain into limb and Denies tingling Neuro Denies Abnormal speech present, Denies abnormal gait, Denies dizziness, Denies syncope, Denies numbness, Denies tingling and Denies weakness Endo Denies palpitations Physical Exam Vital Signs: Last Vital Signs Pulse 119 H 11/20/23 14:17 BP 120/68 11/20/23 14:17 BMI result Body Mass Index 32.7 Const General: cooperative, comfortable, no acute distress, alert and awake Nutritional Appearance: obese Limitations: no limitations Neck Neck: Yes trachea midline, Yes supple and Yes no JVD Chest Chest palpation & inspection: normal inspection of the chest Resp Effort & Inspection: normal respiratory effort Auscultation: clear to auscultation bilaterally Cardio Jugular venous distension: no JVD Palpation: normal PMI Rate: tachycardic Rhythm: regular rhythm Heart sounds: S1 normal heart sound present, S2 normal heart sound present, no click, no gallops, no murmurs and no rubs Neuro Speech: No Abnormal speech present Extrem General: Yes no clubbing, cyanosis or edema Office Procedures EKG Details: EKG shows sinus tachycardia with left axis deviation [id number], Complete Assessment & Plan Assessment & Plan (1) Inappropriate sinus tachycardia: Comment: (likely related to stress /anxiety - per cardio) Code(s): R00.0 - Tachycardia, unspecified Category: Medical Plan: Inappropriate sinus tachycardia and this woman could be dysautonomia. She has no significant symptoms related to it. She could not tolerate beta-sekou therapy with hyperglycemia. Continue to maintain adequate hydration. No other therapy is indicated at this point time. Continue aggressive risk factor modification for hyperlipidemia and diabetes. Continue participate in regular physical activity and weight loss program which can enhance vagal tone. Avoidance of stimulants was discussed. Will follow up in the clinic if need be. Coding Level of Care Code Est Pt Level 3 (81943) Diagnoses Inappropriate sinus tachycardia R00.0 CPT Codes EKG - CPT: 02745-[id number], Complete ([id number])
== END 2023-11-20 14:44 | disposition home or self-care (01) ==
PROVIDERS: PCP Internal Medicine; Visit Provider Internal Medicine Cardiovascular Disease
DX: R00.0 Tachycardia, unspecified (principal)
CPT/HCPCS: 93010; 99213

== ENCOUNTER → 2023-11-20 14:14 | Outpatient (BNVA) | payer MEDICARE, SELFPAY | PROVIDERS: PCP Internal Medicine; Visit Provider Internal Medicine Cardiovascular Disease | DX: R00.0 Tachycardia, unspecified (principal) | CPT/HCPCS: 93005; 99212 ==

== ENCOUNTER 2023-12-02 11:41 | Outpatient (REF) | payer MEDICARE, SELFPAY ==
[2023-12-02 12:42] LABS: MANUAL DIFF FLAG NO
[2023-12-02 12:55] LABS: Basophils Absolute Auto 0.1 X10*3/uL (0.0-0.2); Eosinophils Absolute Auto 0.3 X10*3/uL (0.0-0.4); Eosinophils Percent Auto 2.5 % (0-4); Hematocrit 41.6 % (37.0-47.0); Hemoglobin 13.1 g/dl (12.0-16.0); Imm Gran Abs Auto 0.04 X10*3/uL (0.00-0.03); Imm Gran Pct Auto 0.4 % (0.0-0.4); Lymphocytes Percent Auto 29.7 % (20-40); Mean Corpuscular HGB Conc 31.5 g/dl (31.0-35.0); Mean Corpuscular Volume 79.2 fL (80.0-98.0); Mean Platelet Volume 11.2 fL (9.4-12.3); Monocytes Absolute Auto 0.8 X10*3/uL (0.1-1.2); Monocytes Percent Auto 8.2 % (2-11); Neutrophils Absolute Auto 5.8 x10*3/uL (2.0-8.3); Neutrophils Percent Auto 58.2 % (45-73); Platelet Count 276 X10*3/uL (160-400); Red Blood Count 5.25 X10*6/uL (4.20-5.50); Red Cell Distribution Width 16.3 % (11.0-16.0)
[2023-12-02 13:14] LABS: Alanine Aminotransferase 10 U/L (0-31); Albumin Level 4.4 g/dL (3.5-5.0); Alkaline Phosphatase 81 U/L (39-117); Anion Gap 17 (12-20); Aspartate Amino Transferase 11 U/L (5-31); Bilirubin Total 0.3 mg/dL (0.0-1.0); Blood Urea Nitrogen 12 mg/dL (9-16); Calcium 9.3 mg/dL (8.4-10.2); Carbon Dioxide 23 mmol/L (22-29); Chloride 101 mmol/L (96-108); Estimated Glomerular Filt Rate > 60; Glucose Random 96 mg/dL (60-115); Potassium 4.5 mmol/L (3.3-5.1); Sodium 136 mmol/L (135-145); Total Protein 7.4 g/dL (6.5-8.0)
== END 2023-12-02 11:42 | disposition home or self-care (01) ==
LOC: HO.HMGCLDS 11:41
PROVIDERS: PCP Internal Medicine; Visit Provider Internal Medicine Medical Oncology
DX: D75.1 Secondary polycythemia (principal)
CPT/HCPCS: 36415; 80053; 85025

== ENCOUNTER 2023-12-05 12:10 | Outpatient (REF) | payer MEDICARE, SELFPAY | END 2023-12-05 12:11 | disposition home or self-care (01) | LOC: HO.BBR 12:10 | PROVIDERS: PCP Internal Medicine; Visit Provider Internal Medicine Medical Oncology | DX: D75.1 Secondary polycythemia (principal) | CPT/HCPCS: 85018; 99195 ==

== ENCOUNTER 2023-12-13 10:47 | Outpatient (AMB) | payer MEDICARE, SELFPAY ==
[2023-12-13 10:56] VITALS: BP 104/54; PULSE 114; O2SAT 95; BMI 32.8
--- NOTE | 2023-12-13 10:56 | A.OFFPC_ITS ---
Vital Signs 12/13/23 10:56 Height 5 ft 6 in Weight 203 lb BMI 32.8 BP 104/54 L Blood Pressure Location Rt brachial Position Sitting Pulse 114 H Pulse Source Pulse Oximeter Pulse Oximetry (%) 95 Oxygen Delivery Method Room Air Intake Visit Reasons: Annual PE - see comments Intake Note: Pt is here today for her PE: Last mammogram 11/10/23, bone density scan 10/27/22, cologuard 04/10/22 Allergies empagliflozin [From Jardiance] Adverse Reaction (Intermediate, Verified 12/13/23 11:25) Increased thirst/dehydration atorvastatin Adverse Reaction (Unknown, Verified 12/13/23 11:25) muscle cramps rosuvastatin [From Crestor] Adverse Reaction (Unknown, Verified 12/13/23 11:25) muscle cramps metoprolol Adverse Reaction (Verified 12/13/23 11:25) elevated glucose zetia Allergy (Intermediate, Uncoded 12/13/23 11:25) Muscle Pain Medication List - Last Reconciled 12/13/23 by Anne Marie Miranda MD glipizide 5 mg PO QAM metformin 1,000 mg PO BID multivitamin 1 tab PO DAILY pravastatin 80 mg PO DAILY silicon dioxide (bulk) (Silica Gel powder) 130 ea miscellaneous DAILY Tobacco use date assessed: 12/13/23 Fall risk assessment: No Falls in past year Last assessed Fall Risk: 12/13/23 Dental Screening Dental Screen Date: 12/13/23 Did you have a dental visit in the last 12 months?: No Did you have a dental problem in the last 6 months where you did not have access to dental care?: No Was dental information given to patient?: Patient declined HPI Annual PE - see comments HPI Details 68-year-old lady here today for physical exam. She is up-to-date with her screening mammogram, last done 11/10/23, had a bone density scan 10/27/22 which showed osteopenia in lumbar spine, left femoral neck and left femur, unchanged from previous exam.. She gets yearly low-dose CT scan screening for lung cancer screening, last 1 done earlier this year showed benign findings, repeat again next year. She is up-to-date with her colon cancer screening, had a negative cologuard done 04/10/22. 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 Mixed dyslipidemia Mild cognitive impairment Demyelinating disorder Migraine Anxiety disorder Erythrocytosis Polycythemia Osteopenia (~2005) Menopause Nicotine dependence, cigarettes, uncomplicated Obesity Vitamin D deficiency Adenoma of left adrenal gland Shoulder pain, right Tendinitis of left ankle Carpal tunnel syndrome Peroneal neuropathy Surgical History History of tonsillectomy History of colonoscopy History of lumbar puncture History of surgical removal of ganglion cyst Family History Father Cancer Mother Kidney failure Diabetes mellitus Elevated cholesterol Brother AIDS Sister Breast cancer Brother No problems noted. Sister No problems noted. Social History Housing: House Alcohol intake: current Patient Tobacco Use Status: Current everyday Tobacco user Cigarette Packs Per Day: 1 Years Smoked: (onset 22yo, 1ppd x 45yrs, 45pyh) e-Cigarette/Vaping Use: Former Use service: No Current occupational status: retired Current occupation: lt handed Cognitive needs: No Hearing needs: No Vision needs: Yes Questionnaire PHQ-9 Over the last 2 weeks, how often have you been bothered by any of the following problems? 1. Little interest or pleasure in doing things: not at all 2. Feeling down, depressed, or hopeless: not at all 3. Trouble falling or staying asleep, or sleeping too much: not at all 4. Feeling tired or having little energy: not at all 5. Poor appetite or overeating: not at all 6. Feeling bad about yourself - or that you are a failure or have let yourself or your family down: not at all 7. Trouble concentrating on things, such as reading the newspaper or watching television: not at all 8. Moving or speaking so slowly that other people could have noticed. Or the opposite - being so fidgety or restless that you have been moving around a lot more than usual: not at all 9. Thoughts that you would be better off or of hurting yourself in some way: not at all Total score: 0 Depression Screening Interpretation: Negative Depression Screening Done: Yes [id number] - PHQ-9 Billing: Yes Source: Developed by Drs. Jesus Cooper, Carly Cochran, Cuba Hannah and colleagues, with an educational raisa from [employer]. Thrive Questionnaire Date Thrive assessed: 12/13/23 I am a: Patient What is your living situation today?: I have a steady place to live Within the past 12 months, did the food you bought not last and you didn't have the money to get more?: I choose not to answer this question Within the past 12 months, did you worry whether your food would run out before you got money to buy more?: I choose not to answer this question Do you have trouble paying for medicines?: I choose not to answer this question Do you have trouble getting transportation to medical appointments?: I choose not to answer this question Do you have trouble paying your heating and electricity bill?: I choose not to answer this question Do you have trouble taking care of your child, family member or friend?: I choose not to answer this question Do you have trouble with day-to-day activities such as bathing, preparing meals, shopping, managing finances, etc.?: I choose not to answer this question Are you currently unemployed and looking for a job?: I choose not to answer this question Are you interested in more education?: I choose not to answer this question Please select the resources that you would like help with: Housing/Fdc Currently or been in a relationship where the following occur: I choose not to answer THRIVE Score: 0 AUDIT C Alcohol Use Questionnaire (AUDIT-C) 1. How often do you have a drink containing alcohol?: Never Total Score: 0 DIDI-7 AMB Questionnaire DIDI-7 Date DIDI - 7 assessed: 12/13/23 Feeling nervous, anxious, or on edge: 0 = Not at all Not being able to stop or control worryin = Not at all Worrying too much about different things: 0 = Not at all Trouble relaxin = Not at all Being so restless that it is hard to sit still: 0 = Not at all Becoming easily annoyed or irritable: 0 = Not at all Feeling afraid as if something awful might happen: 0 = Not at all Total DIDI-7 score (0-4 normal; 5-9 mild; 10-14 moderate; 15-21 severe): 0 Source: Developed by Drs. Jesus Cooper, Carly Cochran, Cuba Hannah and colleagues, with an educational raisa from [employer]. DIDI-7 Assessment Billing DIDI-7 Assessment Tool: DIDI-7 Assessment 49938 Review of Systems Const Denies weakness Eyes Details: [facility] no additional complaints ENT Denies dizziness Card Denies chest pain, Denies chest pain with activity, Denies syncope, Denies rapid heart rate, Denies pedal edema, Denies edema, Denies leg edema, Denies lightheadedness, Denies palpitations, Denies dyspnea, Denies dyspnea on exertion and Denies orthopnea Resp Denies cough, Denies dyspnea and Denies dyspnea on exertion GI Denies hematochezia and Denies change in stool character Reports no additional complaints Musc Denies abnormal gait, Denies muscle cramps, Denies muscle weakness, Denies numbness, Denies radiating pain into limb and Denies tingling Skin/Breast Denies breast pain, Denies breast mass and Denies rash Neuro Denies Abnormal speech present, Denies abnormal gait, Denies dizziness, Denies syncope, Denies numbness, Denies tingling and Denies weakness Psych Reports no additional complaints Endo Denies palpitations Rodolfo/Lymph Reports no additional complaints Aller/Immun Reports no additional complaints Physical exam (Primary Care) Vital Signs: Last Vital Signs Pulse 114 H 12/13/23 10:56 BP 104/54 L 12/13/23 10:56 Pulse Ox 95 12/13/23 10:56 Oxygen Delivery Method Room Air 12/13/23 10:56 BMI result Body Mass Index 32.8 Tobacco/Smoking Status: Tobacco use Status Tobacco use date assessed 12/13/23 12/13/23 11:05 Patient Tobacco Use Status Current everyday Tobacco 12/13/23 10:57 e-Cigarette/Vaping Use Former Use 12/13/23 10:57 PHQ-9: PHQ-9 Score PHQ-9: Total score 0 12/13/23 11:44 Depression Screening Interpretation: Negative Thrive Assessment: Date of Thrive Assessment Date Thrive assessed 12/13/23 12/13/23 11:05 Currently or been in a relationship where the following occur: I choose not to answer Const Other: Alert oriented x3, no acute distress noted, ambulatory normal gait Nutritional Appearance: obese Orientation/consciousness: patient oriented x3 HENGA Head: Yes normocephalic Ears: external ears normal General nose exam: Normal external nose present Face and sinus: Yes face symmetric Mouth: Normal oral and palatal mucosa present, oropharynx normal and moist mucous membranes Eyes General: appearance normal, both eyes and all related structures Neck Other: Supple, no lymphadenopathy, no thyroid enlargement Resp Auscultation: clear to auscultation bilaterally Cardio Other: S1-S2 present regular rate and rhythm GI Other: Morbidly obese, Normal bowel sounds, soft, nontender, no mass palpated General: Yes no CVA tenderness Back/Spine/Pelvis Back: no CVA tenderness and No back tenderness Skin General skin exam: no rashes or lesions noted Neuro General: patient oriented x3, gait normal, moves all extremities, Normal light touch and pain sensation and no focal motor deficits Speech: No Abnormal speech present Extrem General: Yes full ROM, Yes no joint enlargement and Yes no clubbing, cyanosis or edema Immunizations pneumoc 20-fred conj-dip cr(PF) 0.5 mL IM syringe Performing Provider: Anne Marie Miranda MD Performing Location: [facility] Administered by: Meme Abbott CMA on 12/13/23 11:51 Dose Route Admin Location Dispensed Lot Number Expiration Date NDC Contractor Buyer 0.5 mL IM Right Deltoid 0.5 mL [id number] 11/11/24 0433-9133-74 [email or web address] VIS Given Date VIS Provided VIS Publication Date 12/13/23 Single Vaccine 21 Eligibility Eligibility Date Funding Source Not VFC Eligible 12/13/23 Private Results Reviewed Results Reviewed: Name: Claude Ngo Age/Sex: 68/F : 1955 Unit#: [id number] Attend Dr: Dulce Maria Saldana MD Re12/02/23 Status: DEP REF Location: [facility] Disch: SPEC : [id number] KAYLYN: 12/02/23-114 STATUS: COMP REQ : [id number] RECD: 12/02/230 [facility] DR: Dulce Maria Saldana MD COMP: 12/02/23 ENTERED: 12/02/[address] [facility] [address]: Anne Marie Miranda MD ORDERED: CBC Auto Diff Test Result Flag Reference WBC 10.0 4.8-10.8 X10*3/uL RBC 5.25 4.20-5.50 X10*6/uL HGB 13.1 12.0-16.0 g/dl HCT 41.6 37.0-47.0 % MCV 79.2 L 80.0-98.0 fL MCH 25.0 L 27.0-33.0 pg MCHC 31.5 31.0-35.0 g/dl RDW 16.3 H 11.0-16.0 % PLT 276 160-400 X10*3/uL MPV 11.2 9.4-12.3 fL Neut Pct Auto 58.2 45-73 % ImGran Pct Auto 0.4 0.0-0.4 % Lymp Pct Auto 29.7 20-40 % [place] Pct Auto 8.2 2-11 % Eos Pct Auto 2.5 0-4 % Baso Pct Auto 1.0 0-2 % NRBC Pct Auto 0.0 0.0-0.2 /100WBC ANC Neut Abs # 5.8 2.0-8.3 x10*3/uL ImGran Abs Auto 0.04 H 0.00-0.03 X10*3/uL Lymph Abs Auto 3.0 1.2-4.9 X10*3/uL [place] Abs Auto 0.8 0.1-1.2 X10*3/uL Eos Abs Auto 0.3 0.0-0.4 X10*3/uL Baso Abs Auto 0.1 0.0-0.2 X10*3/uL NRBC Abs Auto 0.000 0.0-0.012 X10*3/uL Laboratory Tests 08/15/23 11/17/23 08:01 07:04 Fasting Glucose 146 H Estimat Average Glucose 131 148 Hemoglobin A1c % 6.2 H 6.8 H Triglycerides 156 H Cholesterol 177 LDL Cholesterol, Calc 115 H HDL Cholesterol 31 L Urine Creatinine 96.78 Urine Microalbumin 37.0 Microalb/Creat Ratio 38.2 H Name: Claude Ngo Age/Sex: 68/F : 1955 Unit#: [id number] Attend Dr: Dulce Maria Saldana MD Re12/02/23 Status: DEP [facility] Disch: SPEC : [id number] KAYLYN: 12/02/23-1055 STATUS: COMP REQ : [id number] RECD: 12/02/23-[address]: Dulce Maria Saldana MD COMP: 12/02/23-1313 ENTERED: 12/02/23-[address]: Anne Marie Miranda MD ORDERED: CMP Test Result Flag Reference Sodium 136 135-145 mmol/L Potassium 4.5 3.3-5.1 mmol/L CL 101 96-108 mmol/L CO2 23 22-29 mmol/L Gap 17 12-20 BUN 12 9-16 mg/dL Creat 0.88 0.5-1.4 mg/dL EGFR > 60 NOTE: For -[place] individuals, multiply the result by 1.210. Chronic Kidney Disease: Estimated GFR < 60 mL/min/1.73m2 Severe Kidney Disease: Estimated GFR < 15 mL/min/1.73m2 Glucose, Random 96 60-115 mg/dL CA 9.3 8.4-10.2 mg/dL Total Bili 0.3 0.0-1.0 mg/dL AST (GOT) 11 5-31 U/L ALT (GPT) 10 0-31 U/L Protein, Total 7.4 6.5-8.0 g/dL Alb 4.4 3.5-5.0 g/dL Alk Phos 81 39-117 U/L Assessment and Plan Assessment & Plan (1) Annual visit for general adult medical examination with abnormal findings: Code(s): Z00.01 - Encounter for general adult medical examination with abnormal findings Plan: Recent fasting lab results reviewed with patient.. Recommended dental visit every 6 months and regular eye exams, sees [facility], up-to-date with her diabetes retinopathy screening.. Take adequate calcium in diet and vitamin- D 3 at 2000 IU per cap once a day, in addition to weight-bearing exercises to help maintain good muscle tone and weight control. Instructed to do self-breast exam, and continue with yearly mammogram, currently up-to-date together with her bone density scan done last year. Up-to-date with her colon cancer screening had a negative Cologuard test in 2021, repeat due again in 2024 . She has had COVID vaccines but does not want to get the booster, reminded to get her flu shot and shingles vaccine, up-to-date with her Tdap, Prevnar 20 given today (2) Diabetes mellitus with microalbuminuria, without long-term current use of insulin: Code(s): E11.29 - Type 2 diabetes mellitus with other diabetic kidney complication; R80.9 - Proteinuria, unspecified Plan: Recent lab results reviewed with patient, with sugar and hemoglobin A1c at 6.8%, higher than last check. Continued on metformin a 1000 mg twice a day and glipizide 5 mg in the morning. continue to check fasting blood sugar at home, maintain log and bring to next appointment for review. Reinforced diabetic diet and regular exercise with patient. Up-to-date with her yearly diabetes retinopathy screening, sees [facility]. Patient advised to inspect feet daily, for any signs of injury, callus or infection. Compliance with diet and regular exercise again stressed. Blood pressure goal is less than 130/80, goal LDL is less than 100 and goal hemoglobin A1c is less than 7% follow-up appointment made in-5--months, after fasting labs done. (3) Mixed dyslipidemia: Code(s): E78.2 - Mixed hyperlipidemia Plan: Reviewed recent fasting lipid profile with patient with LDL cholesterol still not at goal of less than 100 mg/dL. . Continue pravastatin 80 mg daily at bedtime, , in addition to adherence to low-cholesterol diet and regular exercise, at least 30 minutes 3 to 4 times a week. Advised patient to make healthy food choices, eat more fruits, vegetables, whole grains, wild caught fish and low-fat dairy. Limit amount of meat and fried or fatty food products, as well as processed foods and fast foods. Follow-up scheduled with repeat fasting lipid panel in 5 months. (4) Demyelinating disorder: Comment: seen by Dr. Cheng Code(s): G37.9 - Demyelinating disease of central nervous system, unspecified Plan: Followed by Neurology (5) Polycythemia: Code(s): D75.1 - Secondary polycythemia Plan: Followed by Dr. Saldana, gets regular phlebotomy (6) Osteopenia: Onset Date: ~2005 Comment: (Bone Dexa Lumbar T-score: -1.1 on 09/16/05; -3.0 on 10/23/20; -2.1 on 10/27/22) Code(s): M85.80 - Other specified disorders of bone density and structure, unspecified site Qualifiers: Osteopenia location: multiple sites Qualified Code(s): M85.89 - Other specified disorders of bone density and structure, multiple sites Plan: Discuss recent bone density scan results with patient which showed osteopenia unchanged from previous test. Continue with regular weight-bearing exercise, take adequate calcium from dietary sources and take [id number] vitamin-D 3 at least 2000 units daily (7) Inappropriate sinus tachycardia: Comment: (likely related to stress /anxiety - per cardio) Code(s): R00.0 - Tachycardia, unspecified Plan: Has been seen by Cardiology recently who who diagnosed her with Inappropriate sinus tachycardia, could be dysautonomia. She has no significant symptoms related to it. She could not tolerate beta-sekou therapy with hyperglycemia. Advised to continue to maintain adequate hydration, avoidance of stimulants,. No other therapy is indicated at this point time. Continue aggressive risk factor modification for hyperlipidemia and diabetes. Continue participate in regular physical activity and weight loss program which can enhance vagal tone. Orders: Orders Alanine Aminotransferase 04/14/24 E11.29 - Type 2 diabetes mellitus with other diabetic kidney complication, E66.9 - Obesity, unspecified, E78.2 - Mixed hyperlipidemia, R80.9 - Proteinuria, unspecified Basic Metabolic Panel Fasting 04/14/24 E11.29 - Type 2 diabetes mellitus with other diabetic kidney complication, E66.9 - Obesity, unspecified, E78.2 - Mixed hyperlipidemia, R80.9 - Proteinuria, unspecified Pneumococcal 20 Immunization Today Z23 - Encounter for immunization Hemoglobin A1c 04/14/24 E11.29 - Type 2 diabetes mellitus with other diabetic kidney complication, E66.9 - Obesity, unspecified, E78.2 - Mixed hyperlipidemia, R80.9 - Proteinuria, unspecified Lipid Panel 04/14/24 E11.29 - Type 2 diabetes mellitus with other diabetic kidney complication, E66.9 - Obesity, unspecified, E78.2 - Mixed hyperlipidemia, R80.9 - Proteinuria, unspecified Aspartate Amino Transferase 04/14/24 E11.29 - Type 2 diabetes mellitus with other diabetic kidney complication, E66.9 - Obesity, unspecified, E78.2 - Mixed hyperlipidemia, R80.9 - Proteinuria, unspecified Coding Level of Care Code Est Pt [facility] Care [id number]([id number]) Diagnoses Annual visit for general adult medical examination with abnormal findings Z00.01 Diabetes mellitus with microalbuminuria, without long-term current use of insulin E11.29; R80.9 Mixed dyslipidemia E78.2 Demyelinating disorder G37.9 Polycythemia D75.1 Osteopenia of multiple sites M85.89 Osteopenia location: multiple sites Inappropriate sinus tachycardia R00.0 Additional Codes DIDI-7 Assessment Billing - DIDI-7 Assessment Tool: DIDI-7 Assessment [id number] ([id number])
== END 2023-12-13 11:57 | disposition home or self-care (01) ==
PROVIDERS: PCP Internal Medicine; Visit Provider Internal Medicine
DX: Z00.00 Encounter for general adult medical examination without abnormal findings (principal); E11.29 Type 2 diabetes mellitus with other diabetic kidney complication; G37.9 Demyelinating disease of central nervous system, unspecified; Z23 Encounter for immunization; E78.2 Mixed hyperlipidemia; D75.1 Secondary polycythemia; M85.89 Other specified disorders of bone density and structure, multiple sites; R00.0 Tachycardia, unspecified
CPT/HCPCS: 90471; 90677; 99397

== ENCOUNTER 2024-02-06 12:49 | Outpatient (REF) | payer MEDICARE, SELFPAY | END 2024-02-06 12:50 | disposition home or self-care (01) | LOC: HO.BBR 12:49 | PROVIDERS: PCP Internal Medicine; Visit Provider Internal Medicine Medical Oncology | DX: D75.1 Secondary polycythemia (principal) | CPT/HCPCS: 85014; 85018; 99195 ==

== ENCOUNTER 2024-02-22 08:45 | Outpatient (REF) | payer MEDICARE, SELFPAY ==
--- NOTE | ~2024-02-22 | CT_ITS ---
EXAMINATION: CT LOW-DOSE SCREENING CHEST WITHOUT CONTRAST CLINICAL INFORMATION: Nicotine dependence, cigarettes, uncomplicated. The patient is a current smoker with a 46 pack-year history of smoking. COMPARISON: CT chest 02/17/2023. TECHNIQUE: Multidetector volumetric CT imaging of the chest is performed on a Siemens SOMATOM Definition scanner without contrast using low dose technique. Additional 2D coronal and sagittal reformatted images and axial 3D maximum intensity projection (MIP) images are generated on the CT workstation. This CT examination was performed using dose optimization techniques as appropriate, variously including the following: *Automated exposure control *Adjustment of mA and/or kV according to patient size (this includes techniques or standardized protocols for targeted exams where dose is matched to indication/reason for exam; i.e. extremities or head) *Use of iterative reconstruction technique TOTAL EXAM DLP: 50 mGy-cm CTDIvol: 1.43 mGy FINDINGS: PULMONARY NODULES: No suspicious pulmonary nodules. Three punctate calcified granulomas are present in the right lung. LUNGS: Lungs bilaterally symmetrically expanded. There is mild emphysema and bronchial thickening without bronchiectasis. No effusion or pneumothorax. Central airways patent. MEDIASTINUM: No mediastinal, hilar or axillary adenopathy or free fluid collection. CORONARY ARTERY CALCIFICATION: Minimal. THYROID GLAND: Unremarkable to the extent seen. CARDIOVASCULAR STRUCTURES: Aortic and heart size normal. No pericardial effusion. CHEST WALL/AXILLA: Unremarkable. UPPER ABDOMEN: Included portions of the solid organs in the upper abdomen unremarkable on noncontrast imaging. There is a 7 mm fat density mass arising from the lateral limb of the left adrenal gland consistent with a benign adenoma which needs no additional imaging or follow-up. OSSEOUS STRUCTURES: No suspicious focal findings. CT/CT lung screening IMPRESSION: No findings seen suspicious for malignancy. ASSESSMENT: 1. Lung-RADS Category 1: Negative. There are no nodules or there are definitely benign nodules. N/A 2. Lung-RADS Category S: Negative. There are no clinically significant or potentially clinically significant findings not related to the lungs requiring urgent additional evaluation. RECOMMENDATION: Continued routine annual low-dose CT lung screening in 1 year is recommended. An order for CT CHEST LOW DOSE CANCER SCREENING ([id number]) can be placed. Electronically signed by: Mickey Hoffman MD 03/08/2024 12:01 PM EDT
== END 2024-02-22 08:46 | disposition home or self-care (01) ==
LOC: HO.CT 08:45
PROVIDERS: PCP Internal Medicine; Visit Provider Physician Assistant Medical
DX: Z12.2 Encounter for screening for malignant neoplasm of respiratory organs (principal); F17.210 Nicotine dependence, cigarettes, uncomplicated
CPT/HCPCS: 71271

== ENCOUNTER 2024-04-16 08:42 | Outpatient (AMB) | payer MEDICARE, SELFPAY ==
--- NOTE | 2024-04-16 08:44 | MHC.OFFWIV ---
Intake Vital Signs 04/16/24 08:45 Height 5 ft 6 in Weight 204 lb BMI 32.9 BP 130/82 Blood Pressure Location Lt brachial Position Sitting Pulse 118 H Pulse Source Pulse Oximeter Pulse Oximetry (%) 98 Oxygen Delivery Method Room Air Intake Visit Reasons: EP Pain on lt side, under rib cage Intake Note: Patient here for left sided rib pain that started beginning of march. she believes it could have been from her dog. Patient Tobacco Use Status: Current everyday Tobacco user Allergies empagliflozin [From Jardiance] Adverse Reaction (Intermediate, Verified 04/16/24 08:46) Increased thirst/dehydration atorvastatin Adverse Reaction (Unknown, Verified 04/16/24 08:46) muscle cramps rosuvastatin [From Crestor] Adverse Reaction (Unknown, Verified 04/16/24 08:46) muscle cramps metoprolol Adverse Reaction (Verified 04/16/24 08:46) elevated glucose zetia Allergy (Intermediate, Uncoded 04/16/24 08:46) Muscle Pain Do you need a note to return to daycare/school/sports/work: No HPI HPI Comments History of Present Illness Details This is a 68-year-old female with a past medical history of sinus tachycardia, diabetes and hyperlipidemia presenting for evaluation of left anterior lower lung pain that she has had for the past 2-1/2 weeks. Patient denies any injury or trauma however states her great peroneus dog has recently been sleeping on top of her in bed. Patient has not taken any medication for treatment of her discomfort. Patient describes the pain as a constant ?sharp pressure?. Patient denies having any overt chest pain, shortness of breath, cough, fevers, chills or abdominal pain. 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 Mixed dyslipidemia Mild cognitive impairment Demyelinating disorder Migraine Anxiety disorder Erythrocytosis Polycythemia Osteopenia (~2005) Menopause Nicotine dependence, cigarettes, uncomplicated Obesity Vitamin D deficiency Adenoma of left adrenal gland Shoulder pain, right Tendinitis of left ankle Carpal tunnel syndrome Peroneal neuropathy Surgical History History of tonsillectomy History of colonoscopy History of lumbar puncture History of surgical removal of ganglion cyst Family History Father Cancer Mother Kidney failure Diabetes mellitus Elevated cholesterol Brother AIDS Sister Breast cancer Brother No problems noted. Sister No problems noted. Social History Housing: House Alcohol intake: current Patient Tobacco Use Status: Current everyday Tobacco user Cigarette Packs Per Day: 1 Years Smoked: (onset 22yo, 1ppd x 45yrs, 45pyh) e-Cigarette/Vaping Use: Former Use service: No Current occupational status: retired Current occupation: lt handed Cognitive needs: No Hearing needs: No Vision needs: Yes Review of Systems Const All systems reviewed & are unremarkable except as noted in HPI and below Denies chills, Denies fatigue and Denies fever(s) Eyes Reports no additional complaints ENT Reports no additional complaints Card Reports no additional complaints Resp Reports no additional complaints and Reports other (Left anterior lower lung pain) Endo Denies fatigue Physical Exam Vital Signs: Last Vital Signs Pulse 118 H 04/16/24 08:45 BP 130/82 04/16/24 08:45 Pulse Ox 98 04/16/24 08:45 Oxygen Delivery Method Room Air 04/16/24 08:45 BMI result Body Mass Index 32.9 Patient is tachycardic (noted to be tachycardic at every office visit back to 2019) Const General: cooperative, comfortable, no acute distress, well developed, alert, awake and Physically active; No acute distress or lethargic Nutritional Appearance: obese Orientation/consciousness: patient oriented x3 and No lethargic Limitations: no limitations HEENT Head: Yes normal to inspection and Yes normocephalic Ears: hearing grossly normal bilaterally Eyes General: appearance normal, both eyes and all related structures Resp Effort & Inspection: normal respiratory effort, able to speak in complete sentences, no audible wheezes, no cough and no respiratory distress Auscultation: clear to auscultation bilaterally Cardio Rate: tachycardic Rhythm: regular rhythm Heart sounds: no murmurs and no rubs GI Inspection: Yes normal to inspection, No abdominal wall ecchymosis, No Abdominal wall edema, No distended and Yes obesity Palpation (GI): Tenderness to palpation present (GI) in the LUQ, no guarding and not rigid Auscultation: normal bowel sounds Skin General skin exam: no rashes or lesions noted Neuro General: patient oriented x3 Psych Appearance: grossly normal Mental Status: mental status grossly normal Insight: Good insight present (Psych) Judgement: Good judgement present (Psych) Results Reviewed Results Reviewed: CXR Reviewed Assessment & Plan Assessment & Plan (1) LUQ abdominal pain: Code(s): R10.12 - Left upper quadrant pain Plan: Patient is in no acute distress and there is no guarding on examination of the abdomen. Patient states her blood glucose has been between 180 and 300 over the past 3 weeks and the patient is instructed to follow up with her primary care provider regarding her diabetes medication management as well as her new left upper quadrant abdominal pain. No further imaging is warranted at this time. Plan Tylenol as needed for her discomfort; patient to monitor her blood glucose at least 3 times daily and follow up with her primary care physician later this month as previously scheduled. Orders: Orders XR chest 2V 04/16/24 R10.12 - Left upper quadrant pain Coding Level of Care Code Est Pt Level 3 (50373) Diagnoses LUQ abdominal pain R10.12 Time Spent (min) 25
[2024-04-16 08:45] VITALS: BP 130/82; PULSE 118; O2SAT 98; BMI 32.9
== END 2024-04-16 09:40 | disposition home or self-care (01) ==
PROVIDERS: PCP Internal Medicine; Visit Provider Physician Assistant
DX: R10.12 Left upper quadrant pain (principal)

== ENCOUNTER 2024-04-16 08:42 | Outpatient (REF) | payer MEDICARE, SELFPAY ==
--- NOTE | ~2024-04-16 | XR_ITS ---
EXAMINATION: XR CHEST CLINICAL INFORMATION: Left upper quadrant pain. COMPARISON: Most recent CT lung screening dated 02/22/2024. TECHNIQUE: 2 views of the chest were obtained. FINDINGS: The lungs are clear. The cardiomediastinal silhouette is normal in size. There is no pleural effusion or pneumothorax. No acute osseous abnormality. XR/XR chest 2V IMPRESSION: No acute cardiopulmonary findings. Electronically signed by: Aaron Ashley MD 04/18/2024 09:37 AM [facility]
== END 2024-04-16 08:43 | disposition home or self-care (01) ==
LOC: HO.HMGCX 08:42
PROVIDERS: PCP Internal Medicine; Visit Provider Physician Assistant
DX: R10.12 Left upper quadrant pain (principal)
CPT/HCPCS: 71046; 99212

== ENCOUNTER 2024-04-26 07:26 | Outpatient (REF) | payer MEDICARE, SELFPAY ==
[2024-04-26 10:50] LABS: Estimated Average Glucose 151 mg/dL; Hemoglobin A1C 165.5669 umol/L; Hemoglobin A1c % 6.9 % (<6.0); Total Hemoglobin (HGBA1C) 3162.6436 umol/L
[2024-04-26 11:23] LABS: Alanine Aminotransferase 20 U/L (0-31); Anion Gap 11 (12-20); Aspartate Amino Transferase 20 U/L (5-31); Blood Urea Nitrogen 6 mg/dL (9-16); Carbon Dioxide 27 mmol/L (22-29); Chloride 102 mmol/L (96-108); Cholesterol 190 mg/dL (<200); Estimated Glomerular Filt Rate > 60; Glucose Fasting 162 mg/dL (60-99); HDL Cholesterol 35 mg/dL (>40); LDL Cholesterol Calculated 118 mg/dL (<100); Potassium 4.3 mmol/L (3.3-5.1); Sodium 136 mmol/L (135-145); Triglycerides 187 mg/dL (<150)
== END 2024-04-26 07:27 | disposition home or self-care (01) ==
LOC: HO.HMGCLDS 07:26
PROVIDERS: PCP Internal Medicine; Visit Provider Internal Medicine
DX: E11.29 Type 2 diabetes mellitus with other diabetic kidney complication (principal); R80.9 Proteinuria, unspecified; E78.2 Mixed hyperlipidemia; E66.9 Obesity, unspecified
CPT/HCPCS: 36415; 80048; 80061; 83036; 84450; 84460

== ENCOUNTER 2024-04-30 10:53 | Outpatient (AMB) | payer MEDICARE, SELFPAY ==
[2024-04-30 12:01] VITALS: BP 110/60; PULSE 110; O2SAT 97; BMI 32.4
--- NOTE | 2024-04-30 12:01 | A.OFFPC_ITS ---
Vital Signs 04/30/24 12:01 Height 5 ft 6 in Weight 201 lb BMI 32.4 BP 110/60 Blood Pressure Location Rt brachial Position Sitting Pulse 110 H Pulse Source Pulse Oximeter Pulse Oximetry (%) 97 Oxygen Delivery Method Room Air Intake Visit Reasons: ffup DM ,lipids , HTN Intake Note: Pt is here today to f/u DM, lipids and HTN Allergies empagliflozin [From Jardiance] Adverse Reaction (Intermediate, Verified 04/30/24 12:12) Increased thirst/dehydration atorvastatin Adverse Reaction (Unknown, Verified 04/30/24 12:12) muscle cramps rosuvastatin [From Crestor] Adverse Reaction (Unknown, Verified 04/30/24 12:12) muscle cramps metoprolol Adverse Reaction (Verified 04/30/24 12:12) elevated glucose zetia Allergy (Intermediate, Uncoded 04/30/24 12:12) Muscle Pain Medication List - Last Reconciled 04/30/24 by Anne Marie Miranda MD glipizide 5 mg PO QAM metformin 1,000 mg PO BID multivitamin 1 tab PO DAILY pravastatin 80 mg PO DAILY silicon dioxide (bulk) (Silica Gel powder) 130 ea miscellaneous DAILY Tobacco use date assessed: 04/30/24 Fall risk assessment: 1 Fall in past year Last assessed Fall Risk: 04/30/24 Dental Screening Dental Screen Date: 04/30/24 Did you have a dental visit in the last 12 months?: No Did you have a dental problem in the last 6 months where you did not have access to dental care?: No Was dental information given to patient?: Patient declined HPI ffup DM ,lipids , HTN HPI Details - The patient is a 68-year-old female pr esenting today complaining of abdominal pain noted in the left upper quadrant since mid-March, not related to food intake, described as severe and persistent, causing significant d iscomfort, not ameliorated by eating. - History of diverticulosis noted with eugene garcia colonoscopy; current refusal to undergo further colonoscopy. - Insomnia also discussed, attributed to insufficient sleep of about four hours per night since January. - Complaints of elevated blood sugar stefanie ortiz; HbA1c at 6.9% with recent dietary indiscretions noted. - Reports recent palpitation episodes wi th an average pulse rate of 103 bpm; seen by cardiology without a conclusive diagnosis. - Lives with a large dog, who sleeps wit h her impacting sleep quality, possibly causing sleep disturbances. - Smoker; history and ongoing use discus sed. 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 Mixed dyslipidemia Mild cognitive impairment Demyelinating disorder Migraine Anxiety disorder Erythrocytosis Polycythemia Osteopenia (~2005) Menopause Nicotine dependence, cigarettes, uncomplicated Obesity Vitamin D deficiency Adenoma of left adrenal gland Shoulder pain, right Tendinitis of left ankle Carpal tunnel syndrome Peroneal neuropathy Surgical History History of tonsillectomy History of colonoscopy History of lumbar puncture History of surgical removal of ganglion cyst Family History Father Cancer Mother Kidney failure Diabetes mellitus Elevated cholesterol Brother AIDS Sister Breast cancer Brother No problems noted. Sister No problems noted. Social History Housing: House Alcohol intake: current Patient Tobacco Use Status: Current everyday Tobacco user Cigarette Packs Per Day: 1 Years Smoked: (onset 22yo, 1ppd x 45yrs, 45pyh) e-Cigarette/Vaping Use: Former Use service: No Current occupational status: retired Current occupation: lt handed Cognitive needs: No Hearing needs: No Vision needs: Yes Questionnaire PHQ-9 Over the last 2 weeks, how often have you been bothered by any of the following problems? Depression Screening Interpretation: Negative Depression Screening Done: Yes Source: Developed by Drs. Jesus Cooper, Carly Cochran, Cuba Hannah and colleagues, with an educational raisa from [employer]. Thrive Questionnaire Date Thrive assessed: 12/13/23 I am a: Patient What is your living situation today?: I have a steady place to live Within the past 12 months, did the food you bought not last and you didn't have the money to get more?: I choose not to answer this question Within the past 12 months, did you worry whether your food would run out before you got money to buy more?: I choose not to answer this question Do you have trouble paying for medicines?: I choose not to answer this question Do you have trouble getting transportation to medical appointments?: I choose not to answer this question Do you have trouble paying your heating and electricity bill?: I choose not to answer this question Do you have trouble taking care of your child, family member or friend?: I choose not to answer this question Do you have trouble with day-to-day activities such as bathing, preparing meals, shopping, managing finances, etc.?: I choose not to answer this question Are you currently unemployed and looking for a job?: I choose not to answer this question Are you interested in more education?: I choose not to answer this question Please select the resources that you would like help with: None Currently or been in a relationship where the following occur: I choose not to answer THRIVE Score: 0 DIDI-7 AMB Questionnaire DIDI-7 Date DIDI - 7 assessed: 12/13/23 Source: Developed by Drs. Jesus Cooper, Carly Cochran, Cuba Hannah and colleagues, with an educational raisa from [employer]. Review of Systems Const Reports no additional complaints Eyes Details: Up-to-date with her diabetes retinopathy screening, [facility] eye care Reports no additional complaints ENT Denies dizziness Card Denies chest pain, Denies chest pain with activity, Denies syncope, Denies pedal edema, Denies lightheadedness, Denies dyspnea and Denies dyspnea on exertion Resp Denies cough, Denies dyspnea and Denies dyspnea on exertion GI Reports as per HPI, Denies melena, Denies hematochezia, Denies change in bowel habits and Denies change in stool character Reports no additional complaints Musc Denies abnormal gait, Denies muscle cramps, Denies muscle weakness, Denies numbness, Denies radiating pain into limb and Denies tingling Skin/Breast Denies rash Neuro Denies Abnormal speech present, Denies abnormal gait, Denies dizziness, Denies syncope, Denies numbness and Denies tingling Psych Reports no additional complaints Endo Reports no additional complaints Rodolfo/Lymph Reports no additional complaints Aller/Immun Reports no additional complaints Physical exam (Primary Care) Vital Signs: Last Vital Signs Pulse 110 H 04/30/24 12:01 BP 110/60 04/30/24 12:01 Pulse Ox 97 04/30/24 12:01 Oxygen Delivery Method Room Air 04/30/24 12:01 BMI result Body Mass Index 32.4 Tobacco/Smoking Status: Tobacco use Status Tobacco use date assessed 04/30/24 04/30/24 12:05 Patient Tobacco Use Status Current everyday Tobacco 04/30/24 12:05 e-Cigarette/Vaping Use Former Use 04/30/24 12:05 Depression Screening Interpretation: Negative Thrive Assessment: Date of Thrive Assessment Date Thrive assessed 12/13/23 04/30/24 12:05 Currently or been in a relationship where the following occur: I choose not to answer Const Other: Alert oriented x3, no acute distress noted, ambulatory normal gait Nutritional Appearance: obese Orientation/consciousness: patient oriented x3 HENMT Head: Yes normocephalic Ears: external ears normal General nose exam: Normal external nose present Face and sinus: Yes face symmetric Mouth: Normal oral and palatal mucosa present, oropharynx normal and moist mucou s membranes Eyes General: appearance normal, both eyes and all related structures Neck Other: Supple, no lymphadenopathy, no thyroid enlargement Resp Auscultation: clear to auscultation bilaterally Cardio Other: S1-S2 present regular rate and rhythm GI Other: Morbidly obese, Normal bowel sounds, soft, nontender, no mass palpated General: Yes no CVA tenderness Back/Spine/Pelvis Back: no CVA tenderness and No back tenderness Skin General skin exam: no rashes or lesions noted Neuro General: patient oriented x3, gait normal, moves all extremities, Normal light touch and pain sensation and no focal motor deficits Speech: No Abnormal speech present Extrem General: Yes full ROM, Yes no joint enlargement and Yes no clubbing, cyanosis or edema Results Reviewed Results Reviewed: Laboratory Tests 08/15/23 04/26/24 08:01 07:28 Estimat Average Glucose 151 Hemoglobin A1c % 6.9 H Urine Creatinine 96.78 Urine Microalbumin 37.0 Microalb/Creat Ratio 38.2 H Name: Claude Ngo Age/Sex: 68/F : 1955 Unit#: [id number] Attend Dr: Anne Marie Miranda MD Re04/26/24 Status: DEP [facility] Disch: SPEC : [id number] KAYLYN: 04/26/24 STATUS: COMP REQ : [id number] RECD: 04/26/[address]: Anne Marie Miranda MD COMP: 04/26/24 ENTERED: 04/26/[address] [facility]: ORDERED: Met Prof Fast, AST, ALT, Lipid Panel Test Result Flag Reference Sodium 136 135-145 mmol/L Potassium 4.3 3.3-5.1 mmol/L CL 102 96-108 mmol/L CO2 27 22-29 mmol/L Gap 11 L 12-20 BUN 6 L 9-16 mg/dL Creat 0.78 0.5-1.4 mg/dL eGFR > 60 Chronic Kidney Disease: Estimated GFR < 60 mL/min/1.73m2 Severe Kidney Disease: Estimated GFR < 15 mL/min/1.73m2 FBS 162 H 60-99 mg/dL A fasting glucose of 126 mg/dl or greater on more than one occasion is considered diagnostic of diabetes. CA 9.0 8.4-10.2 mg/dL AST (GOT) 20 5-31 U/L ALT (GPT) 20 0-31 U/L Triglyceride 187 H <150 mg/dL Desirable Triglyceride: less than 150 mg/dL Borderline High Triglyceride 150-199 mg/dL High Triglyceride: 200-499 mg/dL Very High Triglyceride: greater than or equal to 5OO mg/dL Cholesterol 190 <200 mg/dL Desirable Cholesterol: less than 200 mg/dL Borderline High Cholesterol: 200-239 mg/dL High Cholesterol: greater than 239 mg/dL LDL Calculated 118 H <100 mg/dL Desirable LDL: less than 100 mg/dL Near Optimal/Above Optimal LDL: 110-129 mg/dL Borderline High LDL: 130-159 mg/dL High LDL: 160-189 mg/dL Very High LDL: greater than or equal to 190 mg/dL HDL 35 L >40 mg/dL Desirable HDL: greater than 40 mg/dL Note: This HDL assay may give artificially low results in patients with liver disease. Coding Level of Care Code Est Pt Level 4 (85953) Complex EM visit Add On G2211 Diagnoses Fatigue R53.83 Palpitations R00.2 Upper abdominal pain of unknown etiology R10.10 Diabetes mellitus with microalbuminuria, without long-term current use of insulin E11.29; R80.9 Mixed dyslipidemia E78.2 Assessment & Plan Assessment & Plan (1) Fatigue: Code(s): R53.83 - Other fatigue Category: Medical Plan: Will check CBC and iron profile, TSH with free T4, vitamin B12 and folic acid levels (2) Palpitations: Code(s): R00.2 - Palpitations Category: Medical Plan: Has been seen and evaluated by Cardiology, CBC ordered (3) Upper abdominal pain of unknown etiology: Code(s): R10.10 - Upper abdominal pain, unspecified Category: Medical Plan: Liver enzymes are within normal limits, will order CT of abdomen pelvis with oral and IV contrast (4) Diabetes mellitus with microalbuminuria, without long-term current use of insulin: Code(s): E11.29 - Type 2 diabetes mellitus with other diabetic kidney complication; R80.9 - Proteinuria, unspecified Category: Medical Plan: Hemoglobin A1c today at 6.9%. Continue with metformin and glipizide at the same dose. Follow-up in 08/01/2024 (5) Mixed dyslipidemia: Code(s): E78.2 - Mixed hyperlipidemia Category: Medical Plan: Recent fasting lipids showed results within normal limits except for LDL cholesterol not at goal of less than 100 mg/dL. Continued on pravastatin 80 mg at bedtime, reinforced importance of following a low-cholesterol diet and getting regular exercise. Orders: Orders TSH reflex Free T4 04/30/24 R00.2 - Palpitations, R53.83 - Other fatigue Vitamin B12 and Folate 04/30/24 R00.2 - Palpitations, R53.83 - Other fatigue IRON PROFILE 04/30/24 R00.2 - Palpitations, R53.83 - Other fatigue Complete Blood Count Auto Diff 04/30/24 R00.2 - Palpitations, R53.83 - Other fatigue CT abdomen pelvis wo/w IV con 04/30/24 R10.10 - Upper abdominal pain, unspecified
== END 2024-04-30 12:27 | disposition home or self-care (01) ==
PROVIDERS: PCP Internal Medicine; Visit Provider Internal Medicine
DX: R53.83 Other fatigue (principal); R00.2 Palpitations; R10.10 Upper abdominal pain, unspecified; E11.29 Type 2 diabetes mellitus with other diabetic kidney complication; R80.9 Proteinuria, unspecified; E78.2 Mixed hyperlipidemia

== ENCOUNTER 2024-04-30 10:53 | Outpatient (REF) | payer MEDICARE, SELFPAY ==
[2024-04-30 16:05] LABS: MANUAL DIFF FLAG NO
[2024-04-30 16:15] LABS: Basophils Absolute Auto 0.1 X10*3/uL (0.0-0.2); Eosinophils Absolute Auto 0.2 X10*3/uL (0.0-0.4); Hematocrit 41.1 % (37.0-47.0); Imm Gran Abs Auto 0.01 X10*3/uL (0.00-0.03); Imm Gran Pct Auto 0.1 % (0.0-0.4); Lymphocytes Absolute Auto 2.5 X10*3/uL (1.2-4.9); Lymphocytes Percent Auto 28.2 % (20-40); Mean Corpuscular HGB Conc 31.6 g/dl (31.0-35.0); Mean Corpuscular Hemoglobin 24.5 pg (27.0-33.0); Mean Corpuscular Volume 77.5 fL (80.0-98.0); Mean Platelet Volume 10.4 fL (9.4-12.3); Monocytes Absolute Auto 0.7 X10*3/uL (0.1-1.2); Neutrophils Absolute Auto 5.4 x10*3/uL (2.0-8.3); Neutrophils Percent Auto 60.7 % (45-73); Platelet Count 264 X10*3/uL (160-400); Red Cell Distribution Width 16.9 % (11.0-16.0); White Blood Count 8.9 X10*3/uL (4.8-10.8)
[2024-04-30 16:35] LABS: Iron 23 mcg/dL (30-160); Percent Iron Saturation 6 % (15-50); Total Iron Binding Capacity 398 mcg/dL (228-428); Unsaturated Iron Binding 375 ug/dL
[2024-04-30 16:55] LABS: TSH reflex Free T4 2.95 uIU/mL (0.32-4.0)
[2024-04-30 17:03] LABS: Folate 6.8 ng/mL (> or = 4.0); Vitamin B12 247 pg/mL (200-900)
== END 2024-04-30 10:54 | disposition home or self-care (01) ==
LOC: HO.HMGCLDS 10:53
PROVIDERS: PCP Internal Medicine; Visit Provider Internal Medicine
DX: R53.83 Other fatigue (principal); R00.2 Palpitations; R10.10 Upper abdominal pain, unspecified; E11.29 Type 2 diabetes mellitus with other diabetic kidney complication; R80.9 Proteinuria, unspecified; E78.2 Mixed hyperlipidemia; Z79.84 Long term (current) use of oral hypoglycemic drugs
CPT/HCPCS: 36415; 82607; 82746; 83540; 84443; 85025; 99212

== ENCOUNTER 2024-05-09 13:00 | Outpatient (REF) | payer MEDICARE, SELFPAY | END 2024-05-09 13:01 | disposition home or self-care (01) | LOC: HO.BBR 13:00 | PROVIDERS: PCP Internal Medicine; Visit Provider Internal Medicine Medical Oncology | DX: D75.1 Secondary polycythemia (principal) | CPT/HCPCS: 85018; 99195 ==

== ENCOUNTER 2024-05-10 07:30 | Outpatient (REF) | payer MEDICARE, SELFPAY ==
--- NOTE | ~2024-05-10 | CT_ITS ---
EXAMINATION: CT ABDOMEN AND PELVIS WITH CONTRAST CLINICAL INFORMATION: Upper abdominal pain. COMPARISON: Most recent CT abdomen/pelvis dated 09/11/2023, CT abdomen dated 05/20/2021, and CT abdomen/pelvis dated 12/26/2019. TECHNIQUE: Multidetector volumetric images were obtained from the superior aspect of the liver through the pubic symphysis following administration 85 mL of Omnipaque 350 intravenous contrast. Sagittal and coronal reformatted images were obtained on the technologist's workstation. Oral contrast: Yes This CT examination was performed using dose optimization techniques as appropriate, variously including the following: *Automated exposure control *Adjustment of mA and/or kV according to patient size (this includes techniques or standardized protocols for targeted exams where dose is matched to indication/reason for exam; i.e. extremities or head) *Use of iterative reconstruction technique DLP: 516 mGy-cm FINDINGS: LUNG BASES: The visualized lung bases are unremarkable. LIVER, GALLBLADDER, AND BILIARY TREE: The liver is normal in size and shape. Parenchymal hypoattenuation, consistent with steatosis. No focal hepatic lesion or biliary ductal dilatation is present. The gallbladder is unremarkable with no evidence of radiopaque gallstones, gallbladder wall thickening, or obvious pericholecystic inflammatory changes. PANCREAS: Unremarkable. SPLEEN: Unremarkable. ADRENAL GLANDS: Subcentimeter left renal nodules, unchanged when compared to 2021. Findings likely represent adenomas and no dedicated follow-up imaging is recommended. KIDNEYS AND URETERS: The kidneys are normal in size, shape, and attenuation. No hydronephrosis, hydroureter, or calculi seen. Simple bilateral renal cysts. Findings are not clinically significant and no dedicated follow-up imaging is recommended. No perinephric stranding. BLADDER: Unremarkable. GASTROINTESTINAL TRACT: Moderate stool burden. Oral contrast reaches the mid colon. No small or large bowel obstruction. No bowel wall thickening or inflammatory change. Unremarkable appendix. PERITONEAL CAVITY: No intra-abdominal free air or free fluid. No intra-abdominal mass or organized fluid collection/abscess formation. ABDOMINAL WALL: No significant hernia is appreciated. LYMPH NODES: No lymphadenopathy. VASCULAR: No abdominal aortic dilatation or dissection. PELVIC VISCERA: The uterus and adnexa are unremarkable. OSSEOUS STRUCTURES: Unremarkable. CT/CT abdomen pelvis w IV con IMPRESSION: 1. Moderate stool burden. No small or large bowel obstruction. No bowel wall thickening or inflammatory change. Unremarkable appendix. 2. No intra-abdominal mass, lymphadenopathy, or ascites. 3. Hepatic steatosis. No hepatic parenchymal lesion or biliary ductal dilatation. Fleischner guidelines were followed. Electronically signed by: Aaron Ashley MD 05/10/2024 11:19 AM [facility]
[2024-05-10] MEDS: iohexoL 350 MG/ML 100 ML INFUS..BTL IV (10:05)
[2024-05-10] MEDS: Barium Sulfate Oral (Berry) 450 ML ORAL.SUSP PO ×2 (10:05→10:06)
== END 2024-05-10 07:31 | disposition home or self-care (01) ==
LOC: HO.CT 07:30
PROVIDERS: PCP Internal Medicine; Visit Provider Internal Medicine
DX: R10.10 Upper abdominal pain, unspecified (principal); D35.02 Benign neoplasm of left adrenal gland
CPT/HCPCS: 74177; Q9967

== ENCOUNTER 2024-05-20 12:47 | Outpatient (REF) | payer MEDICARE, SELFPAY | END 2024-05-20 12:48 | disposition home or self-care (01) | LOC: HO.BBR 12:47 | PROVIDERS: PCP Internal Medicine; Visit Provider Internal Medicine Medical Oncology | DX: D75.0 Familial erythrocytosis (principal) | CPT/HCPCS: 85018; 99195 ==

== ENCOUNTER 2024-06-06 12:23 | Outpatient (REF) | payer MEDICARE, SELFPAY ==
[2024-06-06 12:40] LABS: MANUAL DIFF FLAG NO
[2024-06-06 12:43] LABS: Basophils Absolute Auto 0.1 X10*3/uL (0.0-0.2); Basophils Percent Auto 0.9 % (0-2); Eosinophils Absolute Auto 0.2 X10*3/uL (0.0-0.4); Eosinophils Percent Auto 2.3 % (0-4); Hematocrit 46.2 % (37.0-47.0); Hemoglobin 14.9 g/dl (12.0-16.0); Imm Gran Abs Auto 0.03 X10*3/uL (0.00-0.03); Imm Gran Pct Auto 0.3 % (0.0-0.4); Lymphocytes Absolute Auto 2.5 X10*3/uL (1.2-4.9); Lymphocytes Percent Auto 28.9 % (20-40); Mean Corpuscular HGB Conc 32.3 g/dl (31.0-35.0); Mean Corpuscular Hemoglobin 26.6 pg (27.0-33.0); Mean Corpuscular Volume 82.5 fL (80.0-98.0); Mean Platelet Volume 9.4 fL (9.4-12.3); Monocytes Absolute Auto 0.8 X10*3/uL (0.1-1.2); Monocytes Percent Auto 8.6 % (2-11); Neutrophils Absolute Auto 5.2 x10*3/uL (2.0-8.3); Platelet Count 226 X10*3/uL (160-400); Red Cell Distribution Width 22.1 % (11.0-16.0); White Blood Count 8.7 X10*3/uL (4.8-10.8)
[2024-06-06 12:55] LABS: Alanine Aminotransferase 18 U/L (0-31); Albumin Level 4.4 g/dL (3.5-5.0); Alkaline Phosphatase 91 U/L (39-117); Anion Gap 11 (12-20); Aspartate Amino Transferase 17 U/L (5-31); Bilirubin Total 0.3 mg/dL (0.0-1.0); Blood Urea Nitrogen 5 mg/dL (9-16); Calcium 9.5 mg/dL (8.4-10.2); Carbon Dioxide 28 mmol/L (22-29); Chloride 103 mmol/L (96-108); Estimated Glomerular Filt Rate > 60; Glucose Random 172 mg/dL (60-115); Potassium 4.5 mmol/L (3.3-5.1); Sodium 137 mmol/L (135-145); Total Protein 7.8 g/dL (6.5-8.0)
== END 2024-06-06 12:24 | disposition home or self-care (01) ==
LOC: HO.LAB 12:23
PROVIDERS: PCP Internal Medicine; Visit Provider Internal Medicine Medical Oncology
DX: D75.1 Secondary polycythemia (principal)
CPT/HCPCS: 36415; 80053; 85025

== ENCOUNTER 2024-06-10 09:58 | Outpatient (REF) | payer MEDICARE, SELFPAY | END 2024-06-10 09:59 | disposition home or self-care (01) | LOC: HO.BBR 09:58 | PROVIDERS: PCP Internal Medicine; Visit Provider Internal Medicine Medical Oncology | DX: D75.1 Secondary polycythemia (principal) | CPT/HCPCS: 85018; 99195 ==

== ENCOUNTER 2024-07-05 08:24 | Outpatient (AMB) | payer MEDICARE, SELFPAY ==
--- NOTE | 2024-07-05 08:19 | A.OFFPC_ITS ---
Intake Visit Reasons: [phone] CP #, request lab order [id number] Allergies empagliflozin [From Jardiance] Adverse Reaction (Intermediate, Verified 07/05/24 08:39) Increased thirst/dehydration atorvastatin Adverse Reaction (Unknown, Verified 07/05/24 08:39) muscle cramps rosuvastatin [From Crestor] Adverse Reaction (Unknown, Verified 07/05/24 08:39) muscle cramps metoprolol Adverse Reaction (Verified 07/05/24 08:39) elevated glucose zetia Allergy (Intermediate, Uncoded 07/05/24 08:39) Muscle Pain Medication List - Last Reconciled 07/05/24 by Anne Marie Miranda MD ferrous fumarate 324 mg PO DAILY glipizide 5 mg PO QAM metformin 1,000 mg PO BID multivitamin 1 tab PO DAILY pravastatin 80 mg PO DAILY silicon dioxide (bulk) (Silica Gel powder) 130 ea miscellaneous DAILY Tobacco use date assessed: 07/05/24 Fall risk assessment: 1 Fall in past year Last assessed Fall Risk: 07/05/24 Dental Screening Dental Screen Date: 07/05/24 Did you have a dental visit in the last 12 months?: No Did you have a dental problem in the last 6 months where you did not have access to dental care?: No Was dental information given to patient?: Patient declined HPI request lab order [id number] HPI Details 68-year-old lady with history of diabet es mellitus and dyslipidemia, here today for follow-up. Recent fasting labs done showed an A1c at 6.9%. Patient however has not yet had her fasting lipids done. She has been compliant with taking her medications, and tries to follow recommended diet, but admits to not getting any regular exercise lately this past winter . She also would like to be checked again guarding her left adrenal adenoma. Incidental finding on CT scan of abdomen of a 1.0 cm nodule within the L adrenal gland. She was seen by Dr. Renee for this and had several lab tests done in 2021 to rule out pheo, hemalatha's as well as hyperaldosteronism. Hemalatha's and pheochromocytoma hyperaldosteronism were ruled out. Patient however complaining of fluctuating blood pressures readings, and would like to have her aldosterone and renin levels checked again. 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 Mixed dyslipidemia Mild cognitive impairment Demyelinating disorder Migraine Anxiety disorder Erythrocytosis Polycythemia Osteopenia (~2005) Menopause Nicotine dependence, cigarettes, uncomplicated Obesity Vitamin D deficiency Adenoma of left adrenal gland Shoulder pain, right Tendinitis of left ankle Carpal tunnel syndrome Peroneal neuropathy Surgical History History of tonsillectomy History of colonoscopy History of lumbar puncture History of surgical removal of ganglion cyst Family History Father Cancer Mother Kidney failure Diabetes mellitus Elevated cholesterol Brother AIDS Sister Breast cancer Brother No problems noted. Sister No problems noted. Social History Housing: House Alcohol intake: current Patient Tobacco Use Status: Current everyday Tobacco user Cigarette Packs Per Day: 1 Years Smoked: (onset 22yo, 1ppd x 45yrs, 45pyh) e-Cigarette/Vaping Use: Former Use service: No Current occupational status: retired Current occupation: lt handed Cognitive needs: No Hearing needs: No Vision needs: Yes Questionnaire PHQ-9 Over the last 2 weeks, how often have you been bothered by any of the following problems? 1. Little interest or pleasure in doing things: not at all 2. Feeling down, depressed, or hopeless: not at all 3. Trouble falling or staying asleep, or sleeping too much: not at all 4. Feeling tired or having little energy: not at all 5. Poor appetite or overeating: not at all 6. Feeling bad about yourself - or that you are a failure or have let yourself or your family down: not at all 7. Trouble concentrating on things, such as reading the newspaper or watching television: not at all 8. Moving or speaking so slowly that other people could have noticed. Or the opposite - being so fidgety or restless that you have been moving around a lot more than usual: not at all 9. Thoughts that you would be better off or of hurting yourself in some way: not at all Total score: 0 Depression Screening Interpretation: Negative Depression Screening Done: Yes 64740 - PHQ-9 Billing: Yes Source: Developed by Drs. Jesus Cooper, Carly Cochran, Cuba Hannah and colleagues, with an educational raisa from [employer]. Thrive Questionnaire Date Thrive assessed: 07/05/24 I am a: Patient What is your living situation today?: I have a steady place to live Within the past 12 months, did the food you bought not last and you didn't have the money to get more?: Never true Within the past 12 months, did you worry whether your food would run out before you got money to buy more?: Never true Do you have trouble paying for medicines?: No Do you have trouble getting transportation to medical appointments?: No Do you have trouble paying your heating and electricity bill?: No Do you have trouble taking care of your child, family member or friend?: No Do you have trouble with day-to-day activities such as bathing, preparing meals, shopping, managing finances, etc.?: No Are you currently unemployed and looking for a job?: No Are you interested in more education?: No THRIVE Score: 0 AUDIT C Alcohol Use Questionnaire (AUDIT-C) 1. How often do you have a drink containing alcohol?: Never Total Score: 0 DIDI-7 AMB Questionnaire DIDI-7 Date DIDI - 7 assessed: 07/05/24 Feeling nervous, anxious, or on edge: 0 = Not at all Not being able to stop or control worryin = Not at all Worrying too much about different things: 0 = Not at all Trouble relaxin = Not at all Being so restless that it is hard to sit still: 0 = Not at all Becoming easily annoyed or irritable: 0 = Not at all Feeling afraid as if something awful might happen: 0 = Not at all Total DIDI-7 score (0-4 normal; 5-9 mild; 10-14 moderate; 15-21 severe): 0 Source: Developed by Drs. Jesus Cooper, Cuba Samuels and colleagues, with an educational raisa from [employer]. DIDI-7 Assessment Billing DIDI-7 Assessment Tool: DIDI-7 Assessment 56590 Review of Systems Const Reports no additional complaints Eyes Details: Up-to-date with her diabetes retinopathy screening, sees [facility] Reports no additional complaints ENT Denies dizziness Card Denies chest pain, Denies chest pain with activity, Denies syncope, Denies pedal edema, Denies lightheadedness, Denies dyspnea and Denies dyspnea on exertion Resp Denies cough, Denies dyspnea and Denies dyspnea on exertion GI Reports as per HPI, Denies melena, Denies hematochezia, Denies change in bowel habits and Denies change in stool character Reports no additional complaints Musc Denies muscle cramps, Denies muscle weakness and Denies tingling Skin/Breast Denies rash Neuro Denies Abnormal speech present, Denies dizziness, Denies syncope and Denies tingling Psych Reports no additional complaints Endo Reports no additional complaints Rodolfo/Lymph Reports no additional complaints Aller/Immun Reports no additional complaints Physical exam (Primary Care) Tobacco/Smoking Status: Tobacco use Status Tobacco use date assessed 07/05/24 07/05/24 08:21 Patient Tobacco Use Status Current everyday Tobacco 07/05/24 08:21 e-Cigarette/Vaping Use Former Use 07/05/24 08:21 PHQ-9: PHQ-9 Score PHQ-9: Total score 2 07/05/24 09:09 Depression Screening Interpretation: Negative Thrive Assessment: Date of Thrive Assessment Date Thrive assessed 07/05/24 07/05/24 08:23 Neuro Speech: No Abnormal speech present Telehealth Telehealth Telehealth Platform: [facility] Location of provider rendering services: practice address Location of patient: address on file Patient Identification confirmed using: Name, : Yes Telehealth method: video Patient verbally consented to treatment: Yes Patient verbally consented to billing insurance company: Yes Patient informed of any privacy concerns related to visit: Yes Minutes spent on Phone/Video with Pt.: 15 Results Reviewed Results Reviewed: Name: Claude Ngo Age/Sex: 68/F : 1955 Unit#: [id number] Attend Dr: Dulce Maria Saldana MD Re06/06/24 Status: DEP REF Location: .LAB Disch: SPEC : [id number] KAYLYN: 06/06/24 STATUS: COMP REQ : [id number] RECD: 06/06/[address] [facility] [address]: Dulce Maria Saldana MD COMP: 06/06/24 ENTERED: 06/06/[address] [facility] [address]: Anne Marie Miranda MD ORDERED: CBC Auto Diff Test Result Flag Reference WBC 8.7 4.8-10.8 X10*3/uL RBC 5.60 H 4.20-5.50 X10*6/uL HGB 14.9 12.0-16.0 g/dl HCT 46.2 37.0-47.0 % MCV 82.5 80.0-98.0 fL MCH 26.6 L 27.0-33.0 pg MCHC 32.3 31.0-35.0 g/dl RDW 22.1 H 11.0-16.0 % PLT 226 160-400 X10*3/uL MPV 9.4 9.4-12.3 fL Neut Pct Auto 59.0 45-73 % ImGran Pct Auto 0.3 0.0-0.4 % Lymp Pct Auto 28.9 20-40 % [place] Pct Auto 8.6 2-11 % Eos Pct Auto 2.3 0-4 % Baso Pct Auto 0.9 0-2 % NRBC Pct Auto 0.0 0.0-0.2 /100WBC ANC Neut Abs # 5.2 2.0-8.3 x10*3/uL ImGran Abs Auto 0.03 0.00-0.03 X10*3/uL Lymph Abs Auto 2.5 1.2-4.9 X10*3/uL [place] Abs Auto 0.8 0.1-1.2 X10*3/uL Eos Abs Auto 0.2 0.0-0.4 X10*3/uL Baso Abs Auto 0.1 0.0-0.2 X10*3/uL NRBC Abs Auto 0.000 0.0-0.012 X10*3/uL Name: Claude Ngo Age/Sex: 68/F : 1955 Unit#: [id number] Attend Dr: Dulce Maria Saldana MD Re06/06/24 Status: DEP REF Location: .LAB Disch: SPEC : [id number] KAYLYN: 06/06/24 STATUS: COMP REQ : [id number] RECD: 06/06/24-[address]: Dulce Maria Saldana MD COMP: 06/06/24-1255 ENTERED: 06/06/24-[address]: Anne Marie Miranda MD ORDERED: CMP Test Result Flag Reference Sodium 137 135-145 mmol/L Potassium 4.5 3.3-5.1 mmol/L CL 103 96-108 mmol/L CO2 28 22-29 mmol/L Gap 11 L 12-20 BUN 5 L 9-16 mg/dL Creat 0.82 0.5-1.4 mg/dL eGFR > 60 Chronic Kidney Disease: Estimated GFR < 60 mL/min/1.73m2 Severe Kidney Disease: Estimated GFR < 15 mL/min/1.73m2 Glucose, Random 172 H 60-115 mg/dL CA 9.5 8.4-10.2 mg/dL Total Bili 0.3 0.0-1.0 mg/dL AST (GOT) 17 5-31 U/L ALT (GPT) 18 0-31 U/L Protein, Total 7.8 6.5-8.0 g/dL Alb 4.4 3.5-5.0 g/dL Alk Phos 91 39-117 U/L Laboratory Tests 04/26/24 07:28 Hemoglobin A1c % 6.9 H Coding Level of Care Code Tele Est Pt Level 4 (77176) Complex EM visit Add On G2211 Diagnoses 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 E11.3293 Mixed dyslipidemia E78.2 Adenoma of left adrenal gland D35.02 Additional Codes PHQ-9 - 02953 - PHQ-9 Billing: Yes ([id number]) DIDI-7 Assessment Billing - DIDI-7 Assessment Tool: DIDI-7 Assessment 13808 ([id number]) Assessment & Plan Assessment & Plan (1) 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 Stressed importance of following recommended diet and getting regular exercise.. Get yearly diabetes retinopathy screening (2) Mixed dyslipidemia: Code(s): E78.2 - Mixed hyperlipidemia Category: Medical Plan: Fasting lipid panel ordered currently on pravastatin 80 mg daily at bedtime. (3) Adenoma of left adrenal gland: Code(s): D35.02 - Benign neoplasm of left adrenal gland Category: Medical Plan: Pheochromocytoma and Hemalatha syndrome ruled out by endocrine specialist in 2021, ordered repeat renin level and aldosterone level as per patient request, last time tests were inconclusive. Orders: Orders Alanine Aminotransferase 07/20/24 E11.29 - Type 2 diabetes mellitus with other diabetic kidney complication, E11.3293 - Type 2 diabetes mellitus with mild nonproliferative diabetic retinopathy without macular edema, bilateral, E55.9 - Vitamin D deficiency, unspecified, E66.9 - Obesity, unspecified, E78.2 - Mixed hyperlipidemia, M85.89 - Other specified disorders of bone density and structure, multiple sites, R80.9 - Proteinuria, unspecified, Z78.0 - Asymptomatic menopausal state Basic Metabolic Panel Fasting 07/20/24 E11.29 - Type 2 diabetes mellitus with other diabetic kidney complication, E11.3293 - Type 2 diabetes mellitus with mild nonproliferative diabetic retinopathy without macular edema, bilateral, E55.9 - Vitamin D deficiency, unspecified, E66.9 - Obesity, unspecified, E78.2 - Mixed hyperlipidemia, M85.89 - Other specified disorders of bone density and structure, multiple sites, R80.9 - Proteinuria, unspecified, Z78.0 - A symptomatic menopausal state Lipid Panel 07/20/24 E11.29 - Type 2 diabetes mellitus with other diabetic kidney complication, E11.3293 - Type 2 diabetes mellitus with mild no nproliferative diabetic retinopathy without macular edema, bilateral, E55.9 - Vitamin D deficiency, unspecified, E66.9 - Obesity, unspecified, E78.2 - Mixed hyperlipidemia, M85.89 - Other specified disorders of bone density and structure, multiple sites, R80.9 - Proteinuria, unspecified, Z78.0 - Asymptomatic menopausal state Microalbumin, Random (w Creat) 07/20/24 E11.29 - Type 2 diabetes mellitus with other diabetic kidney complication, E11.3293 - Type 2 diabetes mellitus with mild nonproliferative diabetic retinopathy without macular edema, bilateral, E55.9 - Vitamin D deficiency, unspecified, E66.9 - Obesity, unspecified, E78.2 - Mixed hyperlipidemia, M85.89 - Other specified disorders of bone density and structure, multiple sites, R80.9 - Proteinuria, unspecified, Z78.0 - Asymptomatic menopausal state Aldosterone 07/20/24 D35.02 - Benign neoplasm of left adrenal gland Hemoglobin A1c 07/20/24 E11.29 - Type 2 diabetes mellitus with other diabetic kidney complication, E11.3293 - Type 2 diabetes mellitus with mild nonproliferative diabetic retinopathy without macular edema, bilateral, E55.9 - Vitamin D deficiency, unspecified, E66.9 - Obesity, unspecified, E78.2 - Mixed hyperlipidemia, M85.89 - Other specified disorders of bone density and structure, multiple sites, R80.9 - Proteinuria, unspecified, Z78.0 - Asymptomatic menopausal state Aspartate Amino Transferase 07/20/24 E11.29 - Type 2 diabetes mellitus with other diabetic kidney complication, E11.3293 - Type 2 diabetes mellitus with mild nonproliferative diabetic retinopathy without macular edema, bilateral, E55.9 - Vitamin D deficiency, unspecified, E66.9 - Obesity, unspecified, E78.2 - Mixed hyperlipidemia, M85.89 - Other specified disorders of bone density and structure, multiple sites, R80.9 - Proteinuria, unspecified, Z78.0 - Asymptomatic menopausal state Vitamin D 25-OH Total 07/20/24 E11.29 - Type 2 diabetes mellitus with other diabetic kidney complication, E11.3293 - Type 2 diabetes mellitus with mild nonproliferative diabetic retinopathy without macular edema, bilateral, E55.9 - Vitamin D deficiency, unspecified, E66.9 - Obesity, unspecified, E78.2 - Mixed hyperlipidemia, M85.89 - Other specified disorders of bone density and structure, multiple sites, R80.9 - Proteinuria, unspecified, Z78.0 - Asymptomatic menopausal state Renin 07/20/24 D35.02 - Benign neoplasm of left adrenal gland
== END 2024-07-05 09:09 | disposition home or self-care (01) ==
LOC: HO.HMCC 08:24
PROVIDERS: PCP Internal Medicine; Visit Provider Internal Medicine
DX: E11.3293 Type 2 diabetes mellitus with mild nonproliferative diabetic retinopathy without macular edema, bilateral (principal); E78.2 Mixed hyperlipidemia; D35.02 Benign neoplasm of left adrenal gland

== ENCOUNTER → 2024-07-05 08:24 | Outpatient (BNVA) | payer MEDICARE, SELFPAY | PROVIDERS: PCP Internal Medicine; Visit Provider Internal Medicine | DX: E11.3293 Type 2 diabetes mellitus with mild nonproliferative diabetic retinopathy without macular edema, bilateral (principal); E78.2 Mixed hyperlipidemia; D35.02 Benign neoplasm of left adrenal gland | CPT/HCPCS: 96127 ==

== ENCOUNTER 2024-08-13 07:28 | Outpatient (REF) | payer MEDICARE, SELFPAY ==
[2024-08-13 11:17] LABS: Alanine Aminotransferase 15 U/L (0-31); Anion Gap 13 (12-20); Aspartate Amino Transferase 19 U/L (5-31); Blood Urea Nitrogen 8 mg/dL (9-16); Calcium 9.2 mg/dL (8.4-10.2); Carbon Dioxide 26 mmol/L (22-29); Chloride 101 mmol/L (96-108); Cholesterol 184 mg/dL (<200); Estimated Glomerular Filt Rate > 60; Glucose Fasting 172 mg/dL (60-99); HDL Cholesterol 34 mg/dL (>40); LDL Cholesterol Calculated 115 mg/dL (<100); Potassium 4.1 mmol/L (3.3-5.1); Sodium 136 mmol/L (135-145); Triglycerides 177 mg/dL (<150)
[2024-08-13 11:18] LABS: Estimated Average Glucose 163 mg/dL; Hemoglobin A1C 237.3137 umol/L; Hemoglobin A1c % 7.3 % (<6.0); Total Hemoglobin (HGBA1C) 4188.8273 umol/L
[2024-08-13 11:28] LABS: Creatinine Urine 40.13 mg/dL; Microalbum/Creatinine Ratio Ur 14.9 ug/mg cr (<30)
[2024-08-13 11:31] LABS: Vitamin D 25-OH Total 43.7 ng/mL (>30)
== END 2024-08-13 07:29 | disposition home or self-care (01) ==
LOC: HO.HMGCLDS 07:28
PROVIDERS: PCP Internal Medicine; Visit Provider Internal Medicine
DX: E11.29 Type 2 diabetes mellitus with other diabetic kidney complication (principal); R80.9 Proteinuria, unspecified; E11.3293 Type 2 diabetes mellitus with mild nonproliferative diabetic retinopathy without macular edema, bilateral; E78.2 Mixed hyperlipidemia; E66.9 Obesity, unspecified; M85.89 Other specified disorders of bone density and structure, multiple sites; Z78.0 Asymptomatic menopausal state; E55.9 Vitamin D deficiency, unspecified; D35.02 Benign neoplasm of left adrenal gland
CPT/HCPCS: 36415; 80048; 80061; 82043; 82088; 82306; 82570; 83036; 84244; 84450; 84460

== ENCOUNTER 2024-08-20 10:43 | Outpatient (AMB) | payer MEDICARE, SELFPAY ==
[2024-08-20 10:53] VITALS: BP 106/62; PULSE 111; RESP 17; TEMP 36.7; O2SAT 94; BMI 32.9
--- NOTE | 2024-08-20 10:53 | A.OFFPC_ITS ---
Vital Signs 08/20/24 10:53 Height 5 ft 6 in Weight 204 lb BMI 32.9 BP 106/62 Blood Pressure Location Rt brachial Position Sitting Respiration 17 Pulse 111 H Pulse Source Pulse Oximeter Temp 98.1 F Temp Source Oral Pulse Oximetry (%) 94 Oxygen Delivery Method Room Air Intake Visit Reasons: follow-up D59M, lipids, HTN Intake Note: Pt is here today for her f/u DM, lipids and HTN Allergies empagliflozin [From Jardiance] Adverse Reaction (Intermediate, Verified 08/20/24 11:31) Increased thirst/dehydration atorvastatin Adverse Reaction (Unknown, Verified 08/20/24 11:31) muscle cramps rosuvastatin [From Crestor] Adverse Reaction (Unknown, Verified 08/20/24 11:31) muscle cramps metoprolol Adverse Reaction (Verified 08/20/24 11:31) elevated glucose zetia Allergy (Intermediate, Uncoded 08/20/24 11:31) Muscle Pain Medication List - Last Reconciled 08/20/24 by Anne Marie Miranda MD glipizide 5 mg PO QAM metformin 1,000 mg PO BID multivitamin 1 tab PO DAILY pravastatin 80 mg PO DAILY silicon dioxide (bulk) (Silica Gel powder) 130 ea miscellaneous DAILY Tobacco use date assessed: 08/20/24 Fall risk assessment: 1 Fall in past year Last assessed Fall Risk: 08/20/24 Dental Screening Dental Screen Date: 08/20/24 Did you have a dental visit in the last 12 months?: No Did you have a dental problem in the last 6 months where you did not have access to dental care?: No Was dental information given to patient?: No HPI follow-up D59M, lipids, HTN HPI Details 69 year-old lady with history of diabet es mellitus and dyslipidemia, here today for follow-up. She has been compliant with taking her medications but not so much with her diet, and has not been moving as much during the winter months. Been feeling well otherwise, with no other complaints at present time. Latest fasting labs showed higher hemoglobin A1c at 7.3% compared to last visit at 6.9, and fasting lipids showed elevated triglycerides and LDL cholesterol levels. 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 Mixed dyslipidemia Mild cognitive impairment Demyelinating disorder Migraine Anxiety disorder Erythrocytosis Polycythemia Osteopenia (~2005) Menopause Nicotine dependence, cigarettes, uncomplicated Obesity Vitamin D deficiency Adenoma of left adrenal gland Shoulder pain, right Tendinitis of left ankle Carpal tunnel syndrome Peroneal neuropathy Surgical History History of tonsillectomy History of colonoscopy History of lumbar puncture History of surgical removal of ganglion cyst Family History Father Cancer Mother Kidney failure Diabetes mellitus Elevated cholesterol Brother AIDS Sister Breast cancer Brother No problems noted. Sister No problems noted. Social History Housing: House Alcohol intake: current Patient Tobacco Use Status: Current everyday Tobacco user Cigarette Packs Per Day: 1 Years Smoked: (onset 22yo, 1ppd x 45yrs, 45pyh) e-Cigarette/Vaping Use: Former Use service: No Current occupational status: retired Current occupation: lt handed Cognitive needs: No Hearing needs: No Vision needs: Yes Questionnaire Thrive Questionnaire Date Thrive assessed: 07/05/24 DIDI-7 AMB Questionnaire DIDI-7 Date DIDI - 7 assessed: 07/05/24 Source: Developed by Drs. Jesus Cooper, Carly Cochran, Cuba Hannah and colleagues, with an educational raisa from [employer]. Review of Systems Const Reports no additional complaints Eyes Details: Up-to-date with her diabetes retinopathy screening, sees [facility] Reports no additional complaints ENT Denies dizziness Card Denies chest pain, Denies chest pain with activity, Denies syncope, Denies pedal edema, Denies lightheadedness, Denies dyspnea and Denies dyspnea on exertion Resp Denies cough, Denies dyspnea and Denies dyspnea on exertion GI Denies melena, Denies hematochezia, Denies change in bowel habits and Denies change in stool character Reports no additional complaints Musc Denies muscle cramps, Denies muscle weakness and Denies tingling Skin/Breast Denies rash Neuro Denies Abnormal speech present, Denies dizziness, Denies syncope and Denies tingling Psych Reports no additional complaints Endo Reports no additional complaints Rodolfo/Lymph Reports no additional complaints Aller/Immun Reports no additional complaints Physical exam (Primary Care) Vital Signs: Last Vital Signs Temp 98.1 F 08/20/24 10:53 Pulse 111 H 08/20/24 10:53 Resp 17 08/20/24 10:53 BP 106/62 08/20/24 10:53 Pulse Ox 94 08/20/24 10:53 Oxygen Delivery Method Room Air 08/20/24 10:53 BMI result Body Mass Index 32.9 Tobacco/Smoking Status: Tobacco use Status Tobacco use date assessed 08/20/24 08/20/24 11:07 Patient Tobacco Use Status Current everyday Tobacco 08/20/24 10:56 e-Cigarette/Vaping Use Former Use 08/20/24 10:56 Thrive Assessment: Date of Thrive Assessment Date Thrive assessed 07/05/24 08/20/24 10:56 Const Other: Alert oriented x3, no acute distress noted, ambulatory normal gait Nutritional Appearance: obese Orientation/consciousness: patient oriented x3 HENMT Face and sinus: Yes face symmetric Mouth: Normal oral and palatal mucosa present, oropharynx normal and moist mucous membranes Eyes General: appearance normal, both eyes and all related structures Neck Other: Supple, no lymphadenopathy, no thyroid enlargement Resp Auscultation: clear to auscultation bilaterally Cardio Other: S1-S2 present regular rate and rhythm GI Other: Morbidly obese, Normal bowel sounds, soft, nontender, no mass palpated General: Yes no CVA tenderness Back/Spine/Pelvis Back: no CVA tenderness and No back tenderness Skin General skin exam: no rashes or lesions noted Neuro General: patient oriented x3, gait normal, moves all extremities, Normal light touch and pain sensation and no focal motor deficits Speech: No Abnormal speech present Extrem General: Yes full ROM, Yes no joint enlargement and Yes no clubbing, cyanosis or edema Results Reviewed Results Reviewed: Name: Claude Ngo Age/Sex: 68/F : 1955 Unit#: [id number] Attend Dr: Dulce Maria Saldana MD Re06/06/24 Status: DEP REF [facility] Disch: SPEC : [id number] KAYLYN: 06/06/24 STATUS: COMP REQ : [id number] RECD: 06/06/24 [facility] DR: Dulce Maria Saldana MD COMP: 06/06/24 ENTERED: 06/06/24 [facility] DR: Anne Marie Miranda MD ORDERED: CBC Auto Diff Test Result Flag Reference WBC 8.7 4.8-10.8 X10*3/uL RBC 5.60 H 4.20-5.50 X10*6/uL HGB 14.9 12.0-16.0 g/dl HCT 46.2 37.0-47.0 % MCV 82.5 80.0-98.0 fL MCH 26.6 L 27.0-33.0 pg MCHC 32.3 31.0-35.0 g/dl RDW 22.1 H 11.0-16.0 % PLT 226 160-400 X10*3/uL MPV 9.4 9.4-12.3 fL Neut Pct Auto 59.0 45-73 % ImGran Pct Auto 0.3 0.0-0.4 % Lymp Pct Auto 28.9 20-40 % Carolina Pct Auto 8.6 2-11 % Eos Pct Auto 2.3 0-4 % Baso Pct Auto 0.9 0-2 % NRBC Pct Auto 0.0 0.0-0.2 /100WBC ANC Neut Abs # 5.2 2.0-8.3 x10*3/uL ImGran Abs Auto 0.03 0.00-0.03 X10*3/uL Lymph Abs Auto 2.5 1.2-4.9 X10*3/uL Carolina Abs Auto 0.8 0.1-1.2 X10*3/uL Eos Abs Auto 0.2 0.0-0.4 X10*3/uL Baso Abs Auto 0.1 0.0-0.2 X10*3/uL NRBC Abs Auto 0.000 0.0-0.012 X10*3/uL Laboratory Tests 08/13/24 07:32 Estimat Average Glucose 163 Hemoglobin A1c % 7.3 H Urine Creatinine 40.13 Urine Microalbumin 6.0 Microalb/Creat Ratio 14.9 Name: Claude Ngo Age/Sex: 69/F : 1955 Unit#: [id number] Attend Dr: Anne Marie Miranda MD Re08/13/24 Status: DEP REF Location: [facility] Disch: SPEC : [id number] KAYLYN: 08/13/24 STATUS: COMP REQ : [id number] RECD: 08/13/24-[address]: Anne Marie Miranda MD COMP: 08/13/24 ENTERED: 08/13/24 [facility] DR: ORDERED: Met Prof Fast, AST, ALT, Lipid Panel, Vitamin D 25-OH Test Result Flag Reference Sodium 136 135-145 mmol/L Potassium 4.1 3.3-5.1 mmol/L CL 101 96-108 mmol/L CO2 26 22-29 mmol/L Gap 13 12-20 BUN 8 L 9-16 mg/dL Creat 0.74 0.5-1.4 mg/dL eGFR > 60 Chronic Kidney Disease: Estimated GFR < 60 mL/min/1.73m2 Severe Kidney Disease: Estimated GFR < 15 mL/min/1.73m2 FBS 172 H 60-99 mg/dL A fasting glucose of 126 mg/dl or greater on more than one occasion is considered diagnostic of diabetes. CA 9.2 8.4-10.2 mg/dL AST (GOT) 19 5-31 U/L ALT (GPT) 15 0-31 U/L Triglyceride 177 H <150 mg/dL Desirable Triglyceride: less than 150 mg/dL Borderline High Triglyceride 150-199 mg/dL High Triglyceride: 200-499 mg/dL Very High Triglyceride: greater than or equal to 5OO mg/dL Cholesterol 184 <200 mg/dL Desirable Cholesterol: less than 200 mg/dL Borderline High Cholesterol: 200-239 mg/dL High Cholesterol: greater than 239 mg/dL LDL Calculated 115 H <100 mg/dL Desirable LDL: less than 100 mg/dL Near Optimal/Above Optimal LDL: 110-129 mg/dL Borderline High LDL: 130-159 mg/dL High LDL: 160-189 mg/dL Very High LDL: greater than or equal to 190 mg/dL HDL 34 L >40 mg/dL Desirable HDL: greater than 40 mg/dL Note: This HDL assay may give artificially low results in patients with liver disease. 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 Added ezetimibe 10 mg daily, continued on pravastatin 80 mg daily. Advised to do moderate in intensity exercise at least 30 minutes 3 to 4 times a week. 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 Will continue on metformin a 1000 mg 1 tablet twice a day, recommended to start GLP 1 agonist but patient does not want to 2 take another new medication, declined increasing glipizide dose, strongly advised to be compliant with the recommended diet and start exercising at least for 30 minutes 3 to 4 times a week. Will repeat hemoglobin A1c in 3 months (4) Nicotine dependence, cigarettes, uncomplicated: Comment: (45PYH) Code(s): F17.210 - Nicotine dependence, cigarettes, uncomplicated Category: Medical Plan: Patient not ready to quit at present time Orders: Orders Hemoglobin A1c 11/16/24 E11.29 - Type 2 diabetes mellitus with other diabetic kidney complication, E55.9 - Vitamin D deficiency, unspecified, E66.9 - Obesity, unspecified, E78.2 - Mixed hyperlipidemia, M85.89 - Other specified disorders of bone density and structure, multiple sites, R00.0 - Tachycardia, unspecified, R80.9 - Proteinuria, unspecified, Z78.0 - Asymptomatic menopausal state Lipid Panel 11/16/24 E11.29 - Type 2 diabetes mellitus with other diabetic kidney complication, E55.9 - Vitamin D deficiency, unspecified, E66.9 - Obesity, unspecified, E78.2 - Mixed hyperlipidemia, M85.89 - Other specified disorders of bone density and structure, multiple sites, R00.0 - Tachycardia, unspecified, R80.9 - Proteinuria, unspecified, Z78.0 - Asymptomatic menopausal state Basic Metabolic Panel Fasting 11/16/24 E11.29 - Type 2 diabetes mellitus with other diabetic kidney complication, E55.9 - Vitamin D deficiency, unspecified, E66.9 - Obesity, unspecified, E78.2 - Mixed hyperlipidemia, M85.89 - Other specified disorders of bone density and structure, multiple sites, R00.0 - Tachycardia, unspecified, R80.9 - Proteinuria, unspecified, Z78.0 - Asymptomatic menopausal state Aspartate Amino Transferase 11/16/24 E11.29 - Type 2 diabetes mellitus with other diabetic kidney complication, E55.9 - Vitamin D deficiency, unspecified, E66.9 - Obesity, unspecified, E78.2 - Mixed hyperlipidemia, M85.89 - Other specified disorders of bone density and structure, multiple sites, R00.0 - Tachycardia, unspecified, R80.9 - Proteinuria, unspecified, Z78.0 - Asymptomatic menopausal state Alanine Aminotransferase 11/16/24 E11.29 - Type 2 diabetes mellitus with other diabetic kidney complication, E55.9 - Vitamin D deficiency, unspecified, E66.9 - Obesity, unspecified, E78.2 - Mixed hyperlipidemia, M85.89 - Other specified disorders of bone density and structure, multiple sites, R00.0 - Tachycardia, unspecified, R80.9 - Proteinuria, unspecified, Z78.0 - Asymptomatic menopausal state Complete Blood Count Auto Diff 11/16/24 E11.29 - Type 2 diabetes mellitus with other diabetic kidney complication, E55.9 - Vitamin D deficiency, unspecified, E66.9 - Obesity, unspecified, E78.2 - Mixed hyperlipidemia, M85.89 - Other specified disorders of bone density and structure, multiple sites, R00.0 - Tach ycardia, unspecified, R80.9 - Proteinuria, unspecified, Z78.0 - Asymptomatic menopausal state IRON PROFILE 11/16/24 E11.29 - Type 2 diabetes mellitus with other diabetic kid carito complication, E55.9 - Vitamin D deficiency, unspecified, E66.9 - Obesity, unspecified, E78.2 - Mixed hyperlipidemia, M85.89 - Other specified disorders of bone density and structure, multiple sites, R00.0 - Tachycardia, unspecified, R80.9 - Proteinuria, unspecified, Z78.0 - Asymptomatic menopausal state Vitamin D 25-OH Total 11/16/24 E11.29 - Type 2 diabetes mellitus with other diabetic kidney complication, E55.9 - Vitamin D deficiency, unspecified, E66.9 - Obesity, unspecified, E78.2 - Mixed hyperlipidemia, M85.89 - Other specified disorders of bone density and structure, multiple sites, R00.0 - Tachycardia, unspecified, R80.9 - Proteinuria, unspecified, Z78.0 - Asymptomatic menopausal state Creatine Kinase Total 11/16/24 E11.29 - Type 2 diabetes mellitus with other diabetic kidney complication, E55.9 - Vitamin D deficiency, unspecified, E66.9 - Obesity, unspecified, E78.2 - Mixed hyperlipidemia, M85.89 - Other specified disorders of bone density and structure, multiple sites, R00.0 - Tachycardia, unspecified, R80.9 - Proteinuria, unspecified, Z78.0 - Asymptomatic menopausal state Medications: New ezetimibe 10 mg PO DAILY 90 tabs 2RF E78.2 - Mixed hyperlipidemia Refilled glipizide 5 mg PO QAM 90 tabs 1RF E11.3293 - Type 2 diabetes mellitus with mild nonproliferative diabetic retinopathy without macular edema, bilateral metformin 1,000 mg PO BID 180 tabs 1RF pravastatin 80 mg PO DAILY 90 tabs 1RF
== END 2024-08-20 12:00 | disposition home or self-care (01) ==
PROVIDERS: PCP Internal Medicine; Visit Provider Internal Medicine
DX: E78.2 Mixed hyperlipidemia (principal); R00.0 Tachycardia, unspecified; E11.3293 Type 2 diabetes mellitus with mild nonproliferative diabetic retinopathy without macular edema, bilateral; F17.210 Nicotine dependence, cigarettes, uncomplicated

== ENCOUNTER → 2024-08-20 10:43 | Outpatient (BNVA) | payer MEDICARE, SELFPAY | PROVIDERS: PCP Internal Medicine; Visit Provider Internal Medicine | DX: I10 Essential (primary) hypertension (principal); E78.2 Mixed hyperlipidemia; F17.210 Nicotine dependence, cigarettes, uncomplicated; R00.0 Tachycardia, unspecified; E11.3293 Type 2 diabetes mellitus with mild nonproliferative diabetic retinopathy without macular edema, bilateral; E11.29 Type 2 diabetes mellitus with other diabetic kidney complication; E55.9 Vitamin D deficiency, unspecified; E66.9 Obesity, unspecified; M85.89 Other specified disorders of bone density and structure, multiple sites; R80.9 Proteinuria, unspecified; Z78.0 Asymptomatic menopausal state; Z68.32 Body mass index [BMI] 32.0-32.9, adult | CPT/HCPCS: 99212 ==

== ENCOUNTER 2024-09-10 10:48 | Outpatient (REF) | payer MEDICARE, SELFPAY | END 2024-09-10 10:49 | disposition home or self-care (01) | LOC: HO.BBR 10:48 | PROVIDERS: PCP Internal Medicine; Visit Provider Internal Medicine Medical Oncology | DX: D75.1 Secondary polycythemia (principal) | CPT/HCPCS: 85014; 85018; 99195 ==

== ENCOUNTER 2024-11-11 08:43 | Emergency (ER) | payer MEDICARE, SELFPAY ==
[2024-11-11 08:54] VITALS: BP 96/64; PULSE 124; RESP 16; TEMP 36.2; O2SAT 98; BMI 31.6
--- NOTE | 2024-11-11 08:58 | ED_ITS ---
HPI - General Adult General Chief complaint: General Medical Stated complaint: r ankle pain Time Seen by Provider: 11/11/24 08:58 Source: patient, RN notes reviewed and old records reviewed Mode of arrival: ambulatory Limitations: no limitations History of Present Illness ED Provider: Angel HPI narrative: Patient is a 69-year-old female with history of mild cognitive impairment, DM, obesity, migraines, polycythemia, inappropriate sinus tachycardia presenting to the emergency department with complaint of right ankle erythema and pruritus. States she was wearing an ankle brace for 3 days and was sweating with the brace on, then began to scratch at her ankle. Since that time it has remained pruritic and is now erythematous with scabbing. Denies any fevers, chills, body aches. Denies any discharge or drainage from the wounds. MD complaint: ankle redness Related Data Home Medications ?Medication ?Instructions ?Recorded ?Confirmed multivitamin 1 tab PO DAILY 11/10/2206/16 silicon dioxide (bulk) (Silica Gel 130 ea miscellaneou s DAILY 12/19/22 07/05/24 powder) Previous Rx's ?Medication ?Instructions ?Recorded ezetimibe 10 mg tablet 10 mg PO DAILY #90 tabs 01/06 glipizide 5 mg tablet 5 mg PO QAM #90 tabs 5 metformin 1,000 mg tablet 1,000 mg PO BID #180 tabs pravastatin 80 mg tablet 80 mg PO DAILY #90 tabs 040 01/06 cephalexin 500 mg capsule 500 mg PO QID #28 caps 11/11 clotrimazole 1 % topical cream 1 appl topical BID 2 we eks #30 11/11/24 grams doxycycline hyclate 100 mg capsule 100 mg PO BID #14 c aps 11/11/24 Allergies Allergy/AdvReac Type Severity Reaction Status Date / Time empagliflozin (From AdvReac Intermediate Increased Verified 11/11/24 09:05 Jardiance) thirst/dehydration atorvastatin AdvReac Unknown muscle Verified 11/11/24 09:05 cramps rosuvastatin (From Crestor) AdvReac Unknown muscle Verified 11/11/24 09:05 cramps metoprolol AdvReac elevated Verified 11/11/24 09:05 glucose zetia Allergy Intermediate Muscle Pain Uncoded 11/11/24 09:05 Review of Systems 2 Review of Systems: As per HPI Yes all other systems are reviewed and are negative Constitutional: Constitutional: Reports as per HPI [facility] Past Medical History Medical History (Updated 11/11/24 @ 13:08 by Milagro Ortiz NP) Palpitations Diabetes mellitus with microalbuminuria, without long-term current use of insulin 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 Mixed dyslipidemia Mild cognitive impairment Demyelinating disorder Migraine Anxiety disorder Erythrocytosis Polycythemia Osteopenia (~2005) Menopause Nicotine dependence, cigarettes, uncomplicated Obesity Vitamin D deficiency Adenoma of left adrenal gland Shoulder pain, right Tendinitis of left ankle Carpal tunnel syndrome Peroneal neuropathy Surgical History History of tonsillectomy History of colonoscopy History of lumbar puncture History of surgical removal of ganglion cyst Family History Family History Father Cancer Mother Kidney failure Diabetes mellitus Elevated cholesterol Brother AIDS Sister Breast cancer Brother No problems noted. Sister No problems noted. Social History Social History Housing: House Alcohol intake: current Patient Tobacco Use Status: Current everyday Tobacco user Cigarette Packs Per Day: 1 Years Smoked: (onset 22yo, 1ppd x 45yrs, 45pyh) Smoked in Last 30 Days: Yes e-Cigarette/Vaping Use: Former Use Advance Directives: No Advance Directives Information Provided: Yes Do you have a plan to hurt others: No Plan service: No Current occupational status: retired Current occupation: lt handed Cognitive needs: No Hearing needs: No Vision needs: Yes Physical Exam ED Vital Signs: Vital Signs - 24 hr 11/11/24 08:54 11/11/24 09:02 11/11/24 10:28 Temperature 97.1 F 97.9 F 97.7 F Pulse Rate 124 H 112 H 102 H Respiratory Rate 16 20 18 Blood Pressure 96/64 123/72 103/67 Pulse Oximetry 98 95 97 Oxygen Delivery Method Room Air Room Air Room Air 11/11/24 11:51 Temperature 98 F Pulse Rate 101 H Respiratory Rate 16 Blood Pressure 122/84 Pulse Oximetry 94 Oxygen Delivery Method Room Air BMI result Body Mass Index 31.9 Vital signs have been reviewed and appear to be correct. Blood pressure normal. Heart rate mildly tachycardic. Respiratory rate normal. Temperature normal. Oxygen saturation normal. Const General: cooperative and no acute distress Orientation/consciousness: oriented to person, oriented to place, oriented to time and patient oriented x3 Limitations: no limitations HENMT Head: Yes normocephalic and Yes atraumatic Ears: external ears normal General nose exam: Normal external nose present Face and sinus: Yes face symmetric Mouth: oropharynx normal and moist mucous membranes Throat: Yes uvula midline Eyes Pupils: Equal, round and reactive pupils present Neck Neck: Yes normal visual inspection and Yes supple Resp Effort & Inspection: normal respiratory effort and able to speak in complete sentences Auscultation: clear to auscultation bilaterally Cardio Rate: regular rate Rhythm: regular rhythm Heart sounds: S1 normal heart sound present and S2 normal heart sound present GI Palpation (GI): Soft to palpation and nontender Auscultation: normoactive bowel sounds General: Yes no CVA tenderness Back/Spine/Pelvis Back: no CVA tenderness Skin General skin exam: elasticity normal and turgor normal Neuro General: oriented to person, oriented to place, oriented to time, patient oriented x3, moves all extremities, no focal motor deficits and CN's II-XI intact bilaterally Cranial nerves: Yes Equal, round and reactive pupils present Cognition (Neuro): normal cognition Extrem Other: General: Yes full ROM, Yes capillary refill normal, Yes no pedal edema and Yes no calf tenderness Right lower extremity: ankle Details: other (papular erythema with scabbing, serous/purulent drainage, no lymphangitis, see photo) Psych Mental Status: mental status grossly normal Affect: normal affect Thought process: Normal thought process present Medications Administered Discontinued Medications Generic Name Dose Route Start Last Admin Trade Name Freq PRN Reason Stop Dose Admin Ceftriaxone Sodium 1 gm 11/11/24 09:18 11/11/24 09:40 Ceftriaxone Sodium 1 Gm Vial IVPUSH 11/11/24 09:19 1 gm ONCE ONE Administration Doxycycline Hyclate 100 mg/ 250 mls @ 166.67 mls/hr 11/11/24 09:18 11/11/24 11:20 Sodium Chloride IV 11/11/24 10:47 Infused ONCE ONE Infusion Lactated Ringer's 1,000 mls @ 999 mls/hr 11/11/24 10:30 11/11/24 12:53 Lr IV 11/11/24 11:30 Infused .Q1H1M JAIME Infusion Medical Decision Making Medical Decision Making [facility] Narrative: Patient is a 69-year-old female with history of mild cognitive impairment, DM, obesity, migraines, polycythemia presenting to the emergency department with complaint of right ankle erythema and pruritus. On exam patient is awake, A+Ox3, mildly tachycardic, VS otherwise WNL, afebrile, normal neurological exam without focal deficits, physical exam findings as above. Given reported symptoms and physical exam findings, initial differential includes but is not limited to cellulitis, saray infection. Do not suspect septic joint. Patient meeting sepsis criteria at 0938 with lactic of 2.8. IV abx and fluids ordered. Will reassess on repeat labs. Repeat lactic has increased to 3 after IV fluids, feel this elevation is likely due to patient's use of metformin and unlikely due to sepsis. No leukocytosis. Case discussed with hospitalist, RODO Mcneill, who agrees that elevated lactic is likely due to metformin and tachycardia is likely due to known chronic tachycardia, unlikely sepsis. Will discharge patient home on Keflex, doxy and clotrimazole. Advised follow up with PCP this week. Return precautions discussed and patient instructed to assess area daily. Patient verbalized understanding of and agreement with plan. Differential Diagnosis Differential Diagnoses: The differential diagnosis associated with the presentation includes As per [facility] Admission/Observation Consideration of admission/observation: Escalation of care including admission/observation considered Consult Healthcare Provider Management of the patient was discussed with: Hospitalist Lab Data [facility] Lab Attestation statement: I reviewed the patient's lab results. As per [facility] 11/11/24 09:38 11/11/24 09:38 Labs: Lab Results 11/11/24 11/11/24 Range/Units 09:38 11:51 WBC 8.3 (4.8-10.8) X10*3/uL RBC 5.65 H (4.20-5.50) X10*6/uL Hgb 16.8 H (12.0-16.0) g/dl Hct 49.8 H (37.0-47.0) % MCV 88.1 (80.0-98.0) fL MCH 29.7 (27.0-33.0) pg MCHC 33.7 (31.0-35.0) g/dl RDW 12.9 (11.0-16.0) % Plt Count 198 (160-400) X10*3/uL MPV 10.4 (9.4-12.3) fL Immature Gran % (Auto) 0.4 (0.0-0.4) % Neut % (Auto) 71.9 (45-73) % Lymph % (Auto) 15.5 L (20-40) % Mcclain % (Auto) 8.0 (2-11) % Eos % (Auto) 3.8 (0-4) % Baso % (Auto) 0.4 (0-2) % Lymph # (Auto) 1.3 (1.2-4.9) X10*3/uL Mcclain # (Auto) 0.7 (0.1-1.2) X10*3/uL Eos # (Auto) 0.3 (0.0-0.4) X10*3/uL Baso # (Auto) 0.0 (0.0-0.2) X10*3/uL Abs Immat Gran (auto) 0.03 (0.00-0.03) X10*3/uL Absolute Neuts (auto) 6.0 (2.0-8.3) x10*3/uL Absolute Nucleated RBC 0.000 (0.0-0.012) X10*3/uL Nucleated RBC % (auto) 0.0 (0.0-0.2) /100WBC Sodium 137 (135-145) mmol/L Potassium 3.9 (3.3-5.1) mmol/L Chloride 102 (96-108) mmol/L Carbon Dioxide 22 (22-29) mmol/L Anion Gap 17 (12-20) BUN 8 L (9-16) mg/dL Creatinine 0.77 (0.5-1.4) mg/dL Estim Creat Clear Calc 79.9 Estimated GFR > 60 Random Glucose 197 H (60-115) mg/dL Lactic Acid 2.8 H* (0.5-2.0) mmol/L Lactic Acid F/U @ 2Hr 3.0 H* (0.5-2.0) mmol/L Calcium 9.2 (8.4-10.2) mg/dL Total Bilirubin 0.7 (0.0-1.0) mg/dL AST 18 (5-31) U/L ALT 16 (0-31) U/L Alkaline Phosphatase 96 (39-117) U/L Total Protein 7.6 (6.5-8.0) g/dL Albumin 4.9 (3.5-5.0) g/dL Independent Interpretation I performed an independent interpretation of an: EKG (sinus tachycardia, rate 110bpm, normal IL interval, slightly prolonged QTc) External Record Review External record reviewed: Inpatient record, Office record and Outpatient record Prescription Management I considered prescription management with: Antibiotic and Other Discharge Plan Discharge Clinical Impression: Cellulitis of right ankle Patient Disposition: Home, Self-Care Instructions: Cellulitis (ED) Additional Instructions: You have been evaluated in the emergency department today for skin infection, also known as cellulitis. If the area of inflammation was outlined today in the ER, please return to the ER immediately if the area of redness increases beyond the border. Please take your prescribed antibiotics as directed for the full course of the medication. You are also being prescribed a cream because it is possible that some of this infection is due to a fungal infection. You can use bbtq-eue-yighfiz cetirizine (Zyrtec) or loratadine (Claritin) as needed for itching. Please schedule an appointment for follow-up with your primary care physician as soon as possible. Return to the emergency department if you experience recurrent vomiting, fevers greater than 100.4? F, increasing area of redness, warmth around the area, foul-smelling discharge from the area, increased tenderness around the area, or any other concerning symptoms. Prescriptions: New cephalexin 500 mg capsule 500 mg PO QID Qty: 28 0RF doxycycline hyclate 100 mg capsule 100 mg PO BID Qty: 14 0RF clotrimazole 1 % cream 1 appl topical BID 14 Days Qty: 30 0RF No Action multivitamin Tablet 1 tab PO DAILY silicon dioxide (bulk) [Silica Gel] Powder 130 ea miscellaneous DAILY ezetimibe 10 mg tablet 10 mg PO DAILY Qty: 90 2RF glipizide 5 mg tablet 5 mg PO QAM Qty: 90 1RF metformin 1,000 mg tablet 1,000 mg PO BID Qty: 180 1RF pravastatin 80 mg tablet 80 mg PO DAILY Qty: 90 1RF Print Language: Norwegian
[2024-11-11 09:02] VITALS: BP 123/72; PULSE 112; RESP 20; TEMP 36.6; O2SAT 95; BMI 31.9
--- NOTE | 2024-11-11 09:10 | ECG_ITS ---
Test Reason : TACHICARDIA Blood Pressure : */* mmHG Vent. Rate : 110 BPM Atrial Rate : 110 BPM P-R Int : 146 ms QRS Dur : 76 ms QT Int : 332 ms P-R-T Axes : 56 -48 50 degrees QTcB Int : 449 ms Sinus tachycardia Low voltage QRS Left anterior fascicular block Inferior infarct , age undetermined Cannot rule out Anterior infarct , age undetermined Abnormal ECG No previous ECGs available Referred By: Generic ED Physician Electronically Signed By: ELDA QUEZADA MD
[2024-11-11] MEDS: cefTRIAXone sodium 1 GM VIAL IVPUSH (09:40)
[2024-11-11 09:43] LABS: MANUAL DIFF FLAG NO
[2024-11-11 09:44] LABS: Basophils Percent Auto 0.4 % (0-2); Eosinophils Absolute Auto 0.3 X10*3/uL (0.0-0.4); Eosinophils Percent Auto 3.8 % (0-4); Hematocrit 49.8 % (37.0-47.0); Hemoglobin 16.8 g/dl (12.0-16.0); Imm Gran Abs Auto 0.03 X10*3/uL (0.00-0.03); Imm Gran Pct Auto 0.4 % (0.0-0.4); Lymphocytes Absolute Auto 1.3 X10*3/uL (1.2-4.9); Lymphocytes Percent Auto 15.5 % (20-40); Mean Corpuscular HGB Conc 33.7 g/dl (31.0-35.0); Mean Corpuscular Hemoglobin 29.7 pg (27.0-33.0); Mean Corpuscular Volume 88.1 fL (80.0-98.0); Mean Platelet Volume 10.4 fL (9.4-12.3); Monocytes Absolute Auto 0.7 X10*3/uL (0.1-1.2); Neutrophils Percent Auto 71.9 % (45-73); Platelet Count 198 X10*3/uL (160-400); Red Blood Count 5.65 X10*6/uL (4.20-5.50); Red Cell Distribution Width 12.9 % (11.0-16.0); White Blood Count 8.3 X10*3/uL (4.8-10.8)
[2024-11-11] MEDS: Doxycycline Hyclate 100 MG in 0.9 % Sodium Chloride 250 ML 166.67 MG IV (09:45)
[2024-11-11 10:02] LABS: Alanine Aminotransferase 16 U/L (0-31); Albumin Level 4.9 g/dL (3.5-5.0); Alkaline Phosphatase 96 U/L (39-117); Anion Gap 17 (12-20); Aspartate Amino Transferase 18 U/L (5-31); Bilirubin Total 0.7 mg/dL (0.0-1.0); Blood Urea Nitrogen 8 mg/dL (9-16); Calcium 9.2 mg/dL (8.4-10.2); Carbon Dioxide 22 mmol/L (22-29); Chloride 102 mmol/L (96-108); Creatinine Clr Calc Pharmacy 79.9; Estimated Glomerular Filt Rate > 60; Glucose Random 197 mg/dL (60-115); Potassium 3.9 mmol/L (3.3-5.1); Sodium 137 mmol/L (135-145); Total Protein 7.6 g/dL (6.5-8.0)
[2024-11-11 10:18] LABS: Lactic Acid 2.8 mmol/L (0.5-2.0)
[2024-11-11] MEDS: Lactated Ringers 1,000 ML 999 ML IV (10:24)
[2024-11-11 10:28] VITALS: BP 103/67; PULSE 102; RESP 18; TEMP 36.5; O2SAT 97
--- NOTE | 2024-11-11 10:32 | PC.NURSE ---
Pt to ED 16 from [facility]. A/o x 3, no apparent s/s of distress. RLE noted to have open wounds, small amount of purulent drainage noted. Pt reports generalized itching throughout body and states she has been scratching to RLE. Afebrile, placed on monitor- sinus tach. EKG and labs obtained. #20 to L hand. IV abx and fluids administered per JUL.
--- OUTSIDE RECORDS SUMMARY | 2024-11-11 11:02 | XMS_ITS | Patient Health Record ---
Author Organization [facility] Address [address] [place] [address] Care Team Providers Care Division Roadmaster Name Role Phone Rosa Maria Antoine NP Primary Care Provider U Jesus Haney Unavailable [phone] Allergies Allergen (clinical drug ingredient) Drug/Non Drug Allergy documented on EMR Reaction Allergy Type Onset Date Status Substance with 1-uivvcbk-4-methylgluta ryl-coenzyme A reductase inhibitor mechanism of action (substance) Statin drugs (uncoded) Unknown Allergy Activ e Reason For Referral No Information Medications Medication SIG (Take, Route, Frequency, Duration) Notes Start Date End Date Status Aspir-81 81mg 1 po qd Active Multi Vitamin/Minerals Active Niaspan 500mg 1 po qd Active Topamax 25mg 1 po qd Active HalfLytely with Flavor Packs 5-210 MG-GM as directed Orally 1 time only for 1 dose 08/26/2011 Active Vitamin D-3 Active Plan Of Treatment Future Test Test Name Order Date COLONOSCOPY 08/26/2011 Insurance Providers Payer Name Payer Address Payer Phone Subscriber Number Group Number Insured Name Patient Relationship to Insured Coverage Start Date Coverage End Date [facility] [address] [place] [address] [id number] JAQUI VAUGHAN Self - patient is the insured Medical (General) History Medical History History ICD Code Migraines Encephalitis in her 20's- ? of demyelinating disease in right side of her brain-seen by Dr. Cheng Denies CO,DM,CVA,Lung disease,renal dise ase Hyperlipidemia
[2024-11-11 11:42] LABS: Reflex Lactate? Lactic Acid Added
[2024-11-11 11:51] VITALS: BP 122/84; PULSE 101; RESP 16; TEMP 36.6; O2SAT 94
[2024-11-11] MEDS: Loratadine 10 MG TABLET PO (13:27)
[2024-11-11 13:38] VITALS: BP 134/80; PULSE 119; RESP 14; TEMP 36.1; O2SAT 99
[2024-11-11 13:55] LABS: Reflex Lactate? 2 Y
== END 2024-11-11 13:38 | disposition home or self-care (01) ==
PROVIDERS: Registered Nurse Emergency; Emergency Provider Emergency Medicine; PCP Internal Medicine
DX: L03.115 Cellulitis of right lower limb (principal); M25.571 Pain in right ankle and joints of right foot; E11.9 Type 2 diabetes mellitus without complications; E78.5 Hyperlipidemia, unspecified; Z79.84 Long term (current) use of oral hypoglycemic drugs; Z79.02 Long term (current) use of antithrombotics/antiplatelets; Z79.899 Other long term (current) drug therapy
CPT/HCPCS: 36415; 80053; 83605; 85025; 87040; 93005; 96361; 96365; 96366; 96375; 99284; 99285; J0696; J1271; J7120

== ENCOUNTER → 2024-11-11 09:10 | Outpatient (BNV) | payer MEDICARE, SELFPAY | PROVIDERS: Emergency Provider Emergency Medicine; PCP Internal Medicine; Visit Provider Internal Medicine Cardiovascular Disease | DX: I44.7 Left bundle-branch block, unspecified (principal); R00.0 Tachycardia, unspecified | CPT/HCPCS: 93010 ==

== ENCOUNTER 2024-11-14 08:41 | Outpatient (AMB) | payer MEDICARE, SELFPAY ==
--- OUTSIDE RECORDS SUMMARY | 2024-11-14 08:48 | XMS_ITS | Patient Health Record ---
Author Organization [facility] Address [address] [place] [address] Care Team Providers Care [employer] Professor Name Role Phone Rosa Maria Antoine NP Primary Care Provider U Jesus Haney Unavailable [phone] Allergies Allergen (clinical drug ingredient) Drug/Non Drug Allergy documented on EMR Reaction Allergy Type Onset Date Status Substance with 9-frnbmja-4-methylgluta ryl-coenzyme A reductase inhibitor mechanism of action [...] Insured Coverage Start Date Coverage End Date [facility] [address] [place] [address] [phone] [id number] JAQUI VAUGHAN Self - patient is the insured Medical (General) History Medical History History ICD Code Migraines Encephalitis in her 20's- ? of demyelinating disease in right side of her brain-seen by Dr. Cheng Denies [place],DM,CVA,Lung disease,renal dise ase Hyperlipidemia
[2024-11-14 10:04] VITALS: BP 100/60; PULSE 102; RESP 15; TEMP 36.7; O2SAT 97; BMI 32.0
--- NOTE | 2024-11-14 10:04 | A.OFFPC_ITS ---
Vital Signs 3 11/14/24 10:04 Height 5 ft 6 in Weight 198 lb BMI 32.0 BP 100/60 Blood Pressure Location Rt brachial Position Sitting Respiration 15 Pulse 102 H Pulse Source Pulse Oximeter Temp 98.0 F Temp Source Oral Pulse Oximetry (%) 97 Oxygen Delivery Method Room Air Intake Visit Reasons: ER f/u cellulitis Allergies empagliflozin (From Jardiance) Adverse Reaction (Intermediate, Verified 11/14/24 10:22) Increased thirst/dehydration atorvastatin Adverse Reaction (Unknown, Verified 11/14/24 10:22) muscle cramps rosuvastatin (From Crestor) Adverse Reaction (Unknown, Verified 11/14/24 10:22) muscle cramps ezetimibe Adverse Reaction (Verified 11/14/24 10:22) swollen ankle metoprolol Adverse Reaction (Verified 11/14/24 10:22) elevated glucose zetia Allergy (Intermediate, Uncoded 11/14/24 10:22) Muscle Pain Medication List - Last Reconciled 11/14/24 by Anne Marie Miranda MD cephalexin 500 mg PO QID clotrimazole 1% 1 appl topical BID 2 weeks doxycycline hyclate 100 mg PO BID glipizide 5 mg PO QAM metformin 1,000 mg PO BID multivitamin 1 tab PO DAILY pravastatin 80 mg PO DAILY silicon dioxide (bulk) (Silica Gel powder) 130 ea miscellaneous DAILY Tobacco use date assessed: 11/14/24 Fall risk assessment: 1 Fall in past year Last assessed Fall Risk: 11/14/24 Dental Screening Dental Screen Date: 11/14/24 Did you have a dental visit in the last 12 months?: No Did you have a dental problem in the last 6 months where you did not have access to dental care?: No Was dental information given to patient?: Patient declined HPI ER f/u cellulitis 2 HPI0 Details 69-year-old female with history of mild cognitive impairment, DM, obesity, migraines, polycythemia, inappropriate sinus tachycardia, was recently diagnosed with cellulitis in right ankle she states that it started after wearing an ankle brace for 3 days and was sweating with the brace on, then began to scratch at her ankle. Denies any fevers, chills, body aches. Denies any discharge or drainage from the wounds. She was placed on cephalexin 500 mg 1 capsule taken every 6 hours together with doxycycline hyclate 100 mg capsule taken 1 capsule twice a day, and clotrimazole to cover possible Debbie infection. She states that itching and swelling together with the redness has started to recede. No new lesions appearing . 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 Mixed dyslipidemia Mild cognitive impairment Demyelinating disorder Migraine Anxiety disorder Erythrocytosis Polycythemia Osteopenia (~2005) Menopause Nicotine dependence, cigarettes, uncomplicated Obesity Vitamin D deficiency Adenoma of left adrenal gland Shoulder pain, right Tendinitis of left ankle Carpal tunnel syndrome Peroneal neuropathy Surgical History History of tonsillectomy History of colonoscopy History of lumbar puncture History of surgical removal of ganglion cyst Family History Father Cancer Mother Kidney failure Diabetes mellitus Elevated cholesterol Brother AIDS Sister Breast cancer Brother No problems noted. Sister No problems noted. Social History Housing: House Alcohol intake: current Patient Tobacco Use Status: Current everyday Tobacco user Cigarette Packs Per Day: 1 Years Smoked: (onset 22yo, 1ppd x 45yrs, 45pyh) Packs Per Year: 0 e-Cigarette/Vaping Use: Former Use service: No Current occupational status: retired Current occupation: lt handed Cognitive needs: No Hearing needs: No Vision needs: Yes Questionnaire Thrive Questionnaire Date Thrive assessed: 08/20/24 I am a: Patient What is your living situation today?: I have a steady place to live Within the past 12 months, did the food you bought not last and you didn't have the money to get more?: Never true Within the past 12 months, did you worry whether your food would run out before you got money to buy more?: Never true Do you have trouble paying for medicines?: No Do you have trouble getting transportation to medical appointments?: No Do you have trouble paying your heating and electricity bill?: No Do you have trouble taking care of your child, family member or friend?: No Do you have trouble with day-to-day activities such as bathing, preparing meals, shopping, managing finances, etc.?: No Are you currently unemployed and looking for a job?: I choose not to answer this question Are you interested in more education?: No Please select the resources that you would like help with: None Currently or been in a relationship where the following occur: No concerns reported THRIVE Score: 0 DIDI-7 AMB Questionnaire DIDI-7 Date DIDI - 7 assessed: 07/05/24 Source: Developed by Drs. Jesus Cooper, Carly Cochran, Cuba Hannah and colleagues, with an educational raisa from [employer]. Review of Systems Const All systems reviewed & are unremarkable except as noted in HPI and below Physical exam (Primary Care) Vital Signs: Last Vital Signs Temp 98.0 F 11/14/24 10:04 Pulse 102 H 11/14/24 10:04 Resp 15 11/14/24 10:04 BP 100/60 11/14/24 10:04 Pulse Ox 97 11/14/24 10:04 Oxygen Delivery Method Room Air 11/14/24 10:04 BMI result Body Mass Index 32.0 Tobacco/Smoking Status: Tobacco use Status Tobacco use date assessed 11/14/24 11/14/24 10:11 Patient Tobacco Use Status Current everyday Tobacco 11/14/24 10:07 e-Cigarette/Vaping Use Former Use 11/14/24 10:07 Thrive Assessment: Date of Thrive Assessment Date Thrive assessed 08/20/24 11/14/24 10:07 Currently or been in a relationship where the following occur: No concerns reported Const Other: Alert oriented x3, no acute distress noted, ambulatory normal gait HENMT Mouth: oropharynx normal and moist mucous membranes Neck Other: Supple, no lymphadenopathy, no thyroid enlargement Resp Auscultation: clear to auscultation bilaterally Cardio Other: S1-S2 present regular rate and rhythm GI Other: Morbidly obese, Normal bowel sounds, soft, nontender, no mass palpated Neuro General: gait normal, moves all extremities, Normal light touch and pain sensation and no focal motor deficits Extrem Other: General: Yes full ROM Coding Level of Care Code Est Pt Level 4 (52820) Diagnoses Cellulitis of lower extremity L03.119 Assessment & Plan Assessment & Plan (1) Cellulitis of lower extremity: Code(s): L03.119 - Cellulitis of unspecified part of limb Category: Medical Plan: Improvement noted in her lesions, advised to finish prescription for cephalexin and doxycycline. Keep appointment for follow-up on 11/25/2024
== END 2024-11-14 10:51 | disposition home or self-care (01) ==
LOC: HO.HMCC 08:42
PROVIDERS: PCP Internal Medicine; Visit Provider Internal Medicine
DX: L03.119 Cellulitis of unspecified part of limb (principal)

== ENCOUNTER → 2024-11-14 08:41 | Outpatient (BNVA) | payer MEDICARE, SELFPAY | PROVIDERS: PCP Internal Medicine; Visit Provider Internal Medicine | DX: L03.115 Cellulitis of right lower limb (principal) | CPT/HCPCS: 99212 ==

== ENCOUNTER 2024-11-21 07:36 | Outpatient (REF) | payer MEDICARE, SELFPAY ==
--- OUTSIDE RECORDS SUMMARY | 2024-11-21 07:39 | XMS_ITS | Patient Health Record ---
Author Organization [facility] Address [address] [place] [address] Care Team Providers Care Optical Instrument Inspector Name Role Phone Rosa Maria Antoine NP Primary Care Provider U Jesus Haney Unavailable [phone] Allergies Allergen (clinical drug ingredient) Drug/Non Drug Allergy documented on EMR Reaction Allergy Type Onset Date Status Substance with 7-xwryari-5-methylgluta ryl-coenzyme A reductase inhibitor mechanism of action [...] Insured Coverage Start Date Coverage End Date [facility] [address] [place] [address] [id number] JAQUI VAUGHAN Self - patient is the insured Medical (General) History Medical History History ICD Code Migraines Encephalitis in her 20's- ? of demyelinating disease in right side of her brain-seen by Dr. Cheng Denies [place],DM,CVA,Lung disease,renal dise ase Hyperlipidemia
[2024-11-21 10:38] LABS: MANUAL DIFF FLAG NO
[2024-11-21 10:55] LABS: Hematocrit 47.6 % (37.0-47.0); Hemoglobin 15.8 g/dl (12.0-16.0); Imm Gran Abs Auto 0.02 X10*3/uL (0.00-0.03); Imm Gran Pct Auto 0.3 % (0.0-0.4); Lymphocytes Absolute Auto 1.8 X10*3/uL (1.2-4.9); Mean Corpuscular HGB Conc 33.2 g/dl (31.0-35.0); Mean Corpuscular Hemoglobin 29.8 pg (27.0-33.0); Mean Corpuscular Volume 89.8 fL (80.0-98.0); NRBC Abs Auto 0.000 X10*3/uL (0.0-0.012); NRBC Pct Auto 0.0 /100WBC (0.0-0.2); Platelet Count 216 X10*3/uL (160-400); Red Blood Count 5.30 X10*6/uL (4.20-5.50); White Blood Count 7.5 X10*3/uL (4.8-10.8)
[2024-11-21 11:08] LABS: Hemoglobin A1C 237.7083 umol/L; Total Hemoglobin (HGBA1C) 4003.7178 umol/L
[2024-11-21 11:24] LABS: Alanine Aminotransferase 12 U/L (0-31); Anion Gap 10 (12-20); Aspartate Amino Transferase 19 U/L (5-31); Blood Urea Nitrogen 8 mg/dL (9-16); Calcium 9.1 mg/dL (8.4-10.2); Carbon Dioxide 27 mmol/L (22-29); Chloride 106 mmol/L (96-108); Cholesterol 170 mg/dL (<200); Estimated Glomerular Filt Rate > 60; HDL Cholesterol 28 mg/dL (>40); Iron 104 mcg/dL (30-160); Percent Iron Saturation 31 % (15-50); Potassium 4.1 mmol/L (3.3-5.1); Sodium 139 mmol/L (135-145); Total Iron Binding Capacity 339 mcg/dL (228-428); Triglycerides 183 mg/dL (<150); Unsaturated Iron Binding 235 ug/dL
== END 2024-11-21 07:37 | disposition home or self-care (01) ==
LOC: HO.HMGCLDS 07:36
PROVIDERS: PCP Internal Medicine; Visit Provider Internal Medicine
DX: E11.29 Type 2 diabetes mellitus with other diabetic kidney complication (principal); E66.9 Obesity, unspecified; M85.89 Other specified disorders of bone density and structure, multiple sites; Z78.0 Asymptomatic menopausal state; E55.9 Vitamin D deficiency, unspecified; R00.0 Tachycardia, unspecified; R80.9 Proteinuria, unspecified; E78.2 Mixed hyperlipidemia
CPT/HCPCS: 36415; 80048; 80061; 82306; 82550; 83036; 83540; 84450; 84460; 85025

== ENCOUNTER 2024-11-25 11:15 | Outpatient (AMB) | payer MEDICARE, SELFPAY ==
--- NOTE | 2024-11-25 11:55 | MHC.PC.OV ---
Vital Signs 11/25/24 11:56 Height 5 ft 6 in Weight 199 lb BMI 32.1 BP 120/68 Blood Pressure Location Lt brachial Position Sitting Respiration 15 Pulse 115 H Pulse Source Pulse Oximeter Temp 98.3 F Temp Source Oral Pulse Oximetry (%) 95 Oxygen Delivery Method Room Air Intake Visit Reasons: 3m follow up Intake Note: Pt is here today for her f/u Allergies empagliflozin (From Jardiance) Adverse Reaction (Intermediate, Verified 12/02/24 00:29) Increased thirst/dehydration atorvastatin Adverse Reaction (Unknown, Verified 12/02/24 00:29) muscle cramps rosuvastatin (From Crestor) Adverse Reaction (Unknown, Verified 12/02/24 00:29) muscle cramps ezetimibe Adverse Reaction (Verified 12/02/24 00:29) swollen ankle metoprolol Adverse Reaction (Verified 12/02/24 00:29) elevated glucose zetia Allergy (Intermediate, Uncoded 12/02/24 00:29) Muscle Pain Medication List - Last Reconciled 11/25/24 by Anne Marie Miranda MD glipizide 5 mg PO QAM metformin 1,000 mg PO BID multivitamin 1 tab PO DAILY pravastatin 80 mg PO DAILY silicon dioxide (bulk) (Silica Gel powder) 130 ea miscellaneous DAILY Tobacco use date assessed: 11/25/24 Fall risk assessment: No Falls in past year Last assessed Fall Risk: 11/25/24 Dental Screening Dental Screen Date: 11/25/24 Did you have a dental visit in the last 12 months?: No Did you have a dental problem in the last 6 months where you did not have access to dental care?: No Was dental information given to patient?: Patient declined HPI 3m follow up HPI Details 69-year-old lady here today for follow-up on her diabetes mellitus and dyslipidemia, as well as cellulitis in lower extremity. Patient admits to having not been compliant with diet, but has been taking her medications as directed. 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 Mixed dyslipidemia Mild cognitive impairment Demyelinating disorder Migraine Anxiety disorder Erythrocytosis Polycythemia Osteopenia (~2006) Menopause Nicotine dependence, cigarettes, uncomplicated Obesity Vitamin D deficiency Adenoma of left adrenal gland Shoulder pain, right Tendinitis of left ankle Carpal tunnel syndrome Peroneal neuropathy Surgical History History of tonsillectomy History of colonoscopy History of lumbar puncture History of surgical removal of ganglion cyst Family History Father Cancer Mother Kidney failure Diabetes mellitus Elevated cholesterol Brother AIDS Sister Breast cancer Brother No problems noted. Sister No problems noted. Social History Housing: House Alcohol intake: current Patient Tobacco Use Status: Current everyday Tobacco user Cigarette Packs Per Day: 1 Years Smoked: (onset 22yo, 1ppd x 45yrs, 45pyh) e-Cigarette/Vaping Use: Former Use service: No Current occupational status: retired Current occupation: lt handed Cognitive needs: No Hearing needs: No Vision needs: Yes Questionnaire Thrive Questionnaire Date Thrive assessed: 08/20/24 I am a: Patient What is your living situation today?: I have a steady place to live Within the past 12 months, did the food you bought not last and you didn't have the money to get more?: Never true Within the past 12 months, did you worry whether your food would run out before you got money to buy more?: Never true Do you have trouble paying for medicines?: No Do you have trouble getting transportation to medical appointments?: No Do you have trouble paying your heating and electricity bill?: No Do you have trouble taking care of your child, family member or friend?: No Do you have trouble with day-to-day activities such as bathing, preparing meals, shopping, managing finances, etc.?: No Are you currently unemployed and looking for a job?: I choose not to answer this question Are you interested in more education?: No Please select the resources that you would like help with: None Currently or been in a relationship where the following occur: No concerns reported THRIVE Score: 0 DIDI-7 AMB Questionnaire DIDI-7 Date DIDI - 7 assessed: 07/05/24 Source: Developed by Drs. Jesus Cooper, Carly Cochran, Cuba Hannah and colleagues, with an educational raisa from [employer]. Review of Systems Const All systems reviewed & are unremarkable except as noted in HPI and below Physical exam (Primary Care) Vital Signs: Last Vital Signs Temp 98.3 F 11/25/24 11:56 Pulse 115 H 11/25/24 11:56 Resp 15 11/25/24 11:56 BP 120/68 11/25/24 11:56 Pulse Ox 95 11/25/24 11:56 Oxygen Delivery Method Room Air 11/25/24 11:56 BMI result Body Mass Index 32.1 Tobacco/Smoking Status: Tobacco use Status Tobacco use date assessed 11/25/24 11/25/24 12:00 Patient Tobacco Use Status Current everyday Tobacco 11/25/24 12:00 e-Cigarette/Vaping Use Former Use 11/25/24 12:00 Thrive Assessment: Date of Thrive Assessment Date Thrive assessed 08/20/24 11/25/24 12:00 Currently or been in a relationship where the following occur: No concerns reported Const Other: Alert oriented x3, no acute distress noted, ambulatory normal gait General: no acute distress, alert, awake and Physically active Nutritional Appearance: obese HENMT Mouth: oropharynx normal and moist mucous membranes Neck Other: Supple, no lymphadenopathy, no thyroid enlargement Resp Auscultation: clear to auscultation bilaterally Cardio Other: S1-S2 present regular rate and rhythm GI Other: Morbidly obese, Normal bowel sounds, soft, nontender, no mass palpated Skin Other: Dry crusted lesion noted in distal aspect of both lower extremities, the right more than the left, nontender to palpation Neuro Other: General: gait normal, moves all extremities, Normal light touch and pain sensation and no focal motor deficits Extrem Other: General: Yes full ROM Results Reviewed Results Reviewed: Laboratory Tests 08/13/24 11/21/24 07:32 07:41 Estimat Average Glucose 171 Hemoglobin A1c % 7.6 H Urine Creatinine 40.13 Urine Microalbumin 6.0 Microalb/Creat Ratio 14.9 Name: Claude Ngo Age/Sex: 69/F : 1955 Unit#: [id number] Attend Dr: Anne Marie Miranda MD Re11/21/24 Status: DEP REF Location: [facility] Disch: SPEC : [id number] KAYLYN: 11/21/24 STATUS: COMP REQ : [id number] RECD: 11/21/24-[address]: Anne Marie Miranda MD COMP: 11/21/24-1130 ENTERED: 11/21/[address] [facility]: ORDERED: Met Prof Fast, IRON PROF, AST, ALT, CK Total, Lipid Panel, Vitamin D 25- Test Result Flag Reference Sodium 139 135-145 mmol/L Potassium 4.1 3.3-5.1 mmol/L CL 106 96-108 mmol/L CO2 27 22-29 mmol/L Gap 10 L 12-20 BUN 8 L 9-16 mg/dL Creat 0.81 0.5-1.4 mg/dL eGFR > 60 Chronic Kidney Disease: Estimated GFR < 60 mL/min/1.73m2 Severe Kidney Disease: Estimated GFR < 15 mL/min/1.73m2 FBS 155 H 60-99 mg/dL A fasting glucose of 126 mg/dl or greater on more than one occasion is considered diagnostic of diabetes. CA 9.1 8.4-10.2 mg/dL Iron 104 30-160 mcg/dL TIBC 339 228-428 mcg/dL Saturation 31 15-50 % UIBC 235 ug/dL AST (GOT) 19 5-31 U/L ALT (GPT) 12 0-31 U/L CK Total 44 26-140 U/L Triglyceride 183 H <150 mg/dL Desirable Triglyceride: less than 150 mg/dL Borderline High Triglyceride 150-199 mg/dL High Triglyceride: 200-499 mg/dL Very High Triglyceride: greater than or equal to 5OO mg/dL Cholesterol 170 <200 mg/dL Desirable Cholesterol: less than 200 mg/dL Borderline High Cholesterol: 200-239 mg/dL High Cholesterol: greater than 239 mg/dL LDL Calculated 106 H <100 mg/dL Desirable LDL: less than 100 mg/dL Near Optimal/Above Optimal LDL: 110-129 mg/dL Borderline High LDL: 130-159 mg/dL High LDL: 160-189 mg/dL Very High LDL: greater than or equal to 190 mg/dL HDL 28 L >40 mg/dL Desirable HDL: greater than 40 mg/dL Note: This HDL assay may give artificially low results in patients with liver disease. 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 E11.3293 Mixed dyslipidemia E78.2 Cellulitis of right lower extremity L03.115 Laterality: right Assessment & Plan Assessment & Plan (1) Right ankle pain: Code(s): M25.571 - Pain in right ankle and joints of right foot Plan: Resolved, with wounds healing nicely, advised elevation of lower extremities as much as possible (2) 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 (3) Mixed dyslipidemia: Code(s): E78.2 - Mixed hyperlipidemia Category: Medical Plan: Reviewed recent fasting lipid profile with patient with mildly elevated LDL cholesterol. . Continue pravastatin 80 mg daily at bedtime , in addition to adherence to low-cholesterol diet and regular exercise, at least 30 minutes 3 to 4 times a week. Advised patient to make healthy food choices, eat more fruits, vegetables, whole grains, wild caught fish and low-fat dairy. Limit amount of meat and fried or fatty food products, as well as processed foods and fast foods. Follow-up scheduled with repeat fasting lipid panel in 3 months. (4) Cellulitis of lower extremity: Code(s): L03.119 - Cellulitis of unspecified part of limb Category: Medical Qualifiers: Laterality: right Qualified Code(s): L03.115 - Cellulitis of right lower limb Plan: Completed taking prescription for cephalexin doxycycline, continue leg elevations as much as possible and return to clinic if no complete resolution of lesion seen Orders: Orders Hemoglobin A1c 02/12/25 E11.3293 - Type 2 diabetes mellitus with mild nonproliferative diabetic retinopathy without macular edema, bilateral, E55.9 - Vitamin D deficiency, unspecified, E78.2 - Mixed hyperlipidemia, M85.89 - Other specified disorders of bone density and structure, multiple sites, Z78.0 - Asymptomatic menopausal state Aspartate Amino Transferase 02/12/25 E11.3293 - Type 2 diabetes mellitus with mild nonproliferative diabetic retinopathy without macular edema, bilateral, E55.9 - Vitamin D deficiency, unspecified, E78.2 - Mixed hyperlipidemia, M85.89 - Other specified disorders of bone density and structure, multiple sites, Z78.0 - Asymptomatic menopausal state Basic Metabolic Panel Fasting 02/12/25 E11.3293 - Type 2 diabetes mellitus with mild nonproliferative diabetic retinopathy without macular edema, bilateral, E55.9 - Vitamin D deficiency, unspecified, E78.2 - Mixed hyperlipidemia, M85.89 - Other specified disorders of bone density and structure, multiple sites, Z78.0 - Asymptomatic menopausal state Vitamin D 25-OH Total 02/12/25 E11.3293 - Type 2 diabetes mellitus with mild nonproliferative diabetic retinopathy without macular edema, bilateral, E55.9 - Vitamin D deficiency, unspecified, E78.2 - Mixed hyperlipidemia, M85.89 - Other specified disorders of bone density and structure, multiple sites, Z78.0 - Asymptomatic menopausal state XR ankle RT min 3V 11/25/24 M25.571 - Pain in right ankle and joints of right foot Alanine Aminotransferase 02/12/25 E11.3293 - Type 2 diabetes mellitus with mild nonproliferative diabetic retinopathy without macular edema, bilateral, E55.9 - Vitamin D deficiency, unspecified, E78.2 - Mixed hyperlipidemia, M85.89 - Other specified disorders of bone density and structure, multiple sites, Z78.0 - Asymptomatic menopausal state Lipid Panel 02/12/25 E11.3293 - Type 2 diabetes mellitus with mild nonproliferative diabetic retinopathy without macular edema, bilateral, E55.9 - Vitamin D deficiency, unspecified, E78.2 - Mixed hyperlipidemia, M85.89 - Other specified disorders of bone density and structure, multiple sites, Z78.0 - Asymptomatic menopausal state
[2024-11-25 11:56] VITALS: BP 120/68; PULSE 115; RESP 15; TEMP 36.8; O2SAT 95; BMI 32.1
--- OUTSIDE RECORDS SUMMARY | 2024-11-25 12:23 | XMS_ITS | Patient Health Record ---
Author Organization [facility] Address [address] [place] [address] Care Team Providers Care Shredding Machine Tender Name Role Phone Rosa Maria Antoine NP Primary Care Provider U Jesus Haney Unavailable [phone] Allergies Allergen (clinical drug ingredient) Drug/Non Drug Allergy documented on EMR Reaction Allergy Type Onset Date Status Substance with 5-jmonbae-9-methylgluta ryl-coenzyme A reductase inhibitor mechanism of action [...] Insured Coverage Start Date Coverage End Date [facility] [address] [place] [address] [id number] JAQUI VAUGHAN Self - patient is the insured Medical (General) History Medical History History ICD Code Migraines Encephalitis in her 20's- ? of demyelinating disease in right side of her brain-seen by Dr. Cheng Denies [place],DM,CVA,Lung disease,renal dise ase Hyperlipidemia
== END 2024-11-25 13:22 | disposition home or self-care (01) ==
LOC: HO.HMCC 11:16
PROVIDERS: PCP Internal Medicine; Visit Provider Internal Medicine
DX: M25.571 Pain in right ankle and joints of right foot (principal); E11.3293 Type 2 diabetes mellitus with mild nonproliferative diabetic retinopathy without macular edema, bilateral; E78.2 Mixed hyperlipidemia; L03.115 Cellulitis of right lower limb

== ENCOUNTER 2024-11-25 11:15 | Outpatient (REF) | payer MEDICARE, SELFPAY ==
--- NOTE | ~2024-11-25 | XR_ITS ---
EXAMINATION: XR ANKLE, RIGHT CLINICAL INFORMATION: M25.571 - Pain in right ankle and joints of right foot COMPARISON: None available. TECHNIQUE: AP, lateral, and mortise views of the right ankle. FINDINGS: No fracture, dislocation, or suspicious bone lesion. Normal alignment. The mortise is intact. The talar dome is normal. The subtalar joints are normal. There is a small dorsal calcaneal spur. There is no joint effusion. There is relatively diffuse subcutaneous soft tissue edema noted. XR/XR ankle RT min 3V IMPRESSION: 1. No acute bony abnormality. 2. Diffuse subcutaneous soft tissue edema. Electronically signed by: Adria Nguyễn MD 11/25/2024 01:15 PM EDT
== END 2024-11-25 11:16 | disposition home or self-care (01) ==
LOC: HO.HMGCX 11:15
PROVIDERS: PCP Internal Medicine; Visit Provider Internal Medicine
DX: M25.571 Pain in right ankle and joints of right foot (principal); E11.3293 Type 2 diabetes mellitus with mild nonproliferative diabetic retinopathy without macular edema, bilateral; E78.2 Mixed hyperlipidemia; L03.115 Cellulitis of right lower limb; Z79.899 Other long term (current) drug therapy
CPT/HCPCS: 73610; 99212

== ENCOUNTER → 2024-11-25 12:27 | Outpatient (BNV) | payer MEDICARE, SELFPAY | PROVIDERS: PCP Internal Medicine; Visit Provider Radiology Diagnostic Radiology | DX: R60.0 Localized edema (principal) | CPT/HCPCS: 73610 ==

== ENCOUNTER 2024-12-04 12:10 | Outpatient (REF) | payer MEDICARE, SELFPAY ==
--- OUTSIDE RECORDS SUMMARY | 2024-12-04 12:45 | XMS_ITS | Patient Health Record ---
Author Organization [facility] Address [address] [place] [address] Care Team Providers Care Records Management Analyst Name Role Phone Rosa Maria Antoine NP Primary Care Provider U Jesus Haney Unavailable [phone] Allergies Allergen (clinical drug ingredient) Drug/Non Drug Allergy documented on EMR Reaction Allergy Type Onset Date Status Substance with 8-lpudild-5-methylgluta ryl-coenzyme A reductase inhibitor mechanism of action [...] Insured Coverage Start Date Coverage End Date [facility] [address] [place] [id number] JAQUI VAUGHAN Self - patient is the insured Medical (General) History Medical History History ICD Code Migraines Encephalitis in her 20's- ? of demyelinating disease in right side of her brain-seen by Dr. Cheng Denies [place],DM,CVA,Lung disease,renal dise ase Hyperlipidemia
[2024-12-04 13:10] LABS: MANUAL DIFF FLAG NO
[2024-12-04 13:37] LABS: Hematocrit 47.2 % (37.0-47.0); Hemoglobin 15.7 g/dl (12.0-16.0); Imm Gran Abs Auto 0.05 X10*3/uL (0.00-0.03); Imm Gran Pct Auto 0.6 % (0.0-0.4); Lymphocytes Absolute Auto 2.0 X10*3/uL (1.2-4.9); Mean Corpuscular HGB Conc 33.3 g/dl (31.0-35.0); Mean Corpuscular Hemoglobin 29.6 pg (27.0-33.0); Mean Corpuscular Volume 88.9 fL (80.0-98.0); NRBC Abs Auto 0.000 X10*3/uL (0.0-0.012); NRBC Pct Auto 0.0 /100WBC (0.0-0.2); Platelet Count 197 X10*3/uL (160-400); Red Blood Count 5.31 X10*6/uL (4.20-5.50); White Blood Count 8.3 X10*3/uL (4.8-10.8)
[2024-12-04 13:58] LABS: Alanine Aminotransferase 19 U/L (0-31); Albumin Level 4.4 g/dL (3.5-5.0); Alkaline Phosphatase 86 U/L (39-117); Anion Gap 12 (12-20); Aspartate Amino Transferase 19 U/L (5-31); Blood Urea Nitrogen 8 mg/dL (9-16); Calcium 8.8 mg/dL (8.4-10.2); Carbon Dioxide 25 mmol/L (22-29); Chloride 101 mmol/L (96-108); Estimated Glomerular Filt Rate > 60; Potassium 4.3 mmol/L (3.3-5.1); Sodium 134 mmol/L (135-145); Total Protein 7.1 g/dL (6.5-8.0)
== END 2024-12-04 12:11 | disposition home or self-care (01) ==
LOC: HO.HMGCLDS 12:10
PROVIDERS: PCP Internal Medicine; Visit Provider Internal Medicine Medical Oncology
DX: D75.1 Secondary polycythemia (principal)
CPT/HCPCS: 36415; 80053; 85025

== ENCOUNTER 2024-12-05 13:05 | Outpatient (REF) | payer MEDICARE, SELFPAY ==
--- OUTSIDE RECORDS SUMMARY | 2024-12-05 13:15 | XMS_ITS | Patient Health Record ---
Author Organization [facility] Address [address] [place] [address] Care Team Providers Care Freight Shipping Agent Name Role Phone Rosa Maria Antoine NP Primary Care Provider U Jesus Haney Unavailable [phone] Allergies Allergen (clinical drug ingredient) Drug/Non Drug Allergy documented on EMR Reaction Allergy Type Onset Date Status Substance with 9-mirffgj-0-methylgluta ryl-coenzyme A reductase inhibitor mechanism of action [...] Insured Coverage Start Date Coverage End Date [facility] [address] [place] [address] [id number] JAQUI VAUGHAN Self - patient is the insured Medical (General) History Medical History History ICD Code Migraines Encephalitis in her 20's- ? of demyelinating disease in right side of her brain-seen by Dr. Cheng Denies [place],DM,CVA,Lung disease,renal dise ase Hyperlipidemia
== END 2024-12-05 13:06 | disposition home or self-care (01) ==
LOC: HO.BBR 13:05
PROVIDERS: PCP Internal Medicine; Visit Provider Internal Medicine Medical Oncology
DX: D75.1 Secondary polycythemia (principal)
CPT/HCPCS: 85018; 99195

== ENCOUNTER 2024-12-19 10:44 | Outpatient (REF) | payer MEDICARE, SELFPAY ==
--- NOTE | ~2024-12-19 | MM_ITS ---
EXAMINATION: MM SCREENING DIGITAL BREAST TOMOSYNTHESIS, BILATERAL CLINICAL INFORMATION: Screening. Asymptomatic. COMPARISON: Comparison made to multiple prior, most recent November 10, 2023, and most remote June 22, 2019. TECHNIQUE: Digital breast tomosynthesis is performed in both the craniocaudal and mediolateral oblique views along with computer-aided detection (CAD). Best possible images according to the technologist's notes. FINDINGS: BREAST COMPOSITION: There are scattered areas of fibroglandular density (ACR BI-RADS breast composition Category b). BILATERAL BREASTS: No significant masses, suspicious calcifications or other abnormalities are seen in either breast. MM/MM tomosynthesis screening BI IMPRESSION: BILATERAL BREASTS: Negative, no mammographic evidence of malignancy. Normal interval follow-up is recommended in 12 months. ASSESSMENT: BI-RADS 1 - Negative RECOMMENDATION: Routine annual mammography screening. FOLLOW-UP: 1 year F/U This examination should not preclude the clinical evaluation of a suspicious palpable abnormality. This patient's information was entered into a reminder system with a target due date for their next mammogram. Electronically signed by: Jaja Huber MD 12/30/2024 07:32 AM EDT
--- NOTE | ~2024-12-19 | MM_ITS ---
EXAMINATION: DXA BONE DENSITY AXIAL HISTORY: Z78.0 - Asymptomatic menopausal state TECHNIQUE: [employer] Dual energy absorptiometry (DEXA) of the lumbar spine, total left hip, and femoral neck was performed. COMPARISON: Comparison is made with the prior examination dated 10/27/2022. FINDINGS: The bone mineral density of the lumbar spine is 0.965 g/cm2, corresponding to a T-score of -1.8, and a Z-score of -1.0. This is indicative of osteopenia. This represents a BMD change of -1.7% compared to the prior exam. This is not statistically significant. The bone mineral density of the left total hip is 0.766 g/cm2, corresponding to a T-score of -1.9, and a Z-score of -1.2. This is indicative of osteopenia. This represents a BMD change of -8.3% compared to the prior exam. This is statistically significant. The bone mineral density of the left femoral neck is 0.794 g/cm2, corresponding to a T-score of -1.8, and a Z-score of -0.7. This is indicative of osteopenia. This represents a BMD change of 3.4% compared to the prior exam. FRACTURE RISK: The FRAX index suggests a ten year probability of major osteoporotic fracture of 10.1%, and of hip fracture 2.3%. MM/XR DEXA axial skeleton IMPRESSION: Based on bone mineral density, and according to World Health Organization (WHO) criteria, the diagnosis is consistent with osteopenia. Statistically, 68% of repeat scans fall within 1 SD (+/- 0.010 g/cm2 for AP spine L1-L4) and 1 SD (+/- 0.012 g/cm2 for femur total) FRAX is a trademark of the [employer] [place] [employer] Metabolic Bone Disease, a World Health Organization (WHO) Collaborating Center. Electronically signed by: Jesus Nelson MD 12/19/2024 11:46 AM EDT
--- OUTSIDE RECORDS SUMMARY | 2024-12-19 11:25 | XMS_ITS | Patient Health Record ---
Author Organization [facility] Address [address] [place] [address] Care Team Providers Care Senior It Assistant Name Role Phone Rosa Maria Antoine NP Primary Care Provider U Jesus Haney Unavailable [phone] Allergies Allergen (clinical drug ingredient) Drug/Non Drug Allergy documented on EMR Reaction Allergy Type Onset Date Status Substance with 3-ifncfgz-2-methylgluta ryl-coenzyme A reductase inhibitor mechanism of action [...] Insured Coverage Start Date Coverage End Date [facility] [address] [place] [address] [id number] JAQUI VAUGHAN Self - patient is the insured Medical (General) History Medical History History ICD Code Migraines Encephalitis in her 20's- ? of demyelinating disease in right side of her brain-seen by Dr. Cheng Denies [place],DM,CVA,Lung disease,renal dise ase Hyperlipidemia
== END 2024-12-19 10:45 | disposition home or self-care (01) ==
LOC: HO.MAMMO 10:44
PROVIDERS: PCP Internal Medicine; Visit Provider Internal Medicine
DX: Z12.31 Encounter for screening mammogram for malignant neoplasm of breast (principal); Z13.820 Encounter for screening for osteoporosis; Z78.0 Asymptomatic menopausal state
CPT/HCPCS: 77063; 77067; 77080

== ENCOUNTER → 2024-12-19 10:48 | Outpatient (BNV) | payer MEDICARE, SELFPAY | PROVIDERS: PCP Internal Medicine; Visit Provider Radiology Diagnostic Radiology | DX: E28.39 Other primary ovarian failure (principal) | CPT/HCPCS: 77080 ==

== ENCOUNTER 2025-02-21 07:32 | Outpatient (REF) | payer MEDICARE, SELFPAY ==
[2025-02-21 11:01] LABS: Alanine Aminotransferase 16 U/L (0-31); Anion Gap 13 (12-20); Aspartate Amino Transferase 16 U/L (5-31); Blood Urea Nitrogen 8 mg/dL (9-16); Calcium 9.3 mg/dL (8.4-10.2); Carbon Dioxide 28 mmol/L (22-29); Chloride 102 mmol/L (96-108); Cholesterol 196 mg/dL (<200); Estimated Glomerular Filt Rate > 60; HDL Cholesterol 30 mg/dL (>40); Potassium 4.2 mmol/L (3.3-5.1); Sodium 139 mmol/L (135-145); Triglycerides 197 mg/dL (<150)
== END 2025-02-21 07:33 | disposition home or self-care (01) ==
LOC: HO.HMGCLDS 07:32
PROVIDERS: PCP Internal Medicine; Visit Provider Internal Medicine
DX: E78.2 Mixed hyperlipidemia (principal); E11.3293 Type 2 diabetes mellitus with mild nonproliferative diabetic retinopathy without macular edema, bilateral; M85.89 Other specified disorders of bone density and structure, multiple sites; E55.9 Vitamin D deficiency, unspecified; Z78.0 Asymptomatic menopausal state
CPT/HCPCS: 36415; 80048; 80061; 82306; 83036; 84450; 84460

== ENCOUNTER 2025-02-24 10:13 | Outpatient (AMB) | payer MEDICARE, SELFPAY ==
--- OUTSIDE RECORDS SUMMARY | 2025-02-24 10:16 | XMS_ITS | Patient Health Record ---
Author Organization [facility] Address [address] [place] [address] Care Team Providers Care Rehabilitation Liaison Name Role Phone Rosa Maria Antoine NP Primary Care Provider U Jesus Haney Unavailable [phone] Allergies Allergen (clinical drug ingredient) Drug/Non Drug Allergy documented on EMR Reaction Allergy Type Onset Date Status Substance with 9-orlvasa-1-methylgluta ryl-coenzyme A reductase inhibitor mechanism of action [...] 5-210 MG-GM as directed Orally 1 time only; Duration: 1 dose 08/26/2011 Active Vitamin D-3 Active Plan Of Treatment Future Test Test Name Order Date COLONOSCOPY 08/26/2011 Insurance Providers Payer Name Payer Address Payer Phone Subscriber Number Group Number Insured Name Patient Relationship to Insured Coverage Start Date Coverage End Date [facility] [address] [place] [address] [phone] [id number] JAQUI VAUGHAN Self - patient is the insured Medical (General) History Medical History History ICD Code Migraines Encephalitis in her 20's- ? of demyelinating disease in right side of her brain-seen by Dr. Cheng Denies [place],DM,CVA,Lung disease,renal dise ase Hyperlipidemia
[2025-02-24 10:24] VITALS: BP 122/70; PULSE 97; TEMP 36.7; O2SAT 99; BMI 32.8
--- NOTE | 2025-02-24 10:24 | A.OFFPC_ITS ---
Vital Signs 02/24/25 10:24 Height 5 ft 6 in Weight 203 lb BMI 32.8 BP 122/70 Blood Pressure Location Lt brachial Position Sitting Pulse 97 Temp 98.0 F Temp Source Oral Pulse Oximetry (%) 99 Oxygen Delivery Method Room Air Intake Visit Reasons: annual exam - see comments Intake Note: Pt is here today for her PE: last mammogram 12/19/24, bone density scan 12/19/24, 10/28/11 Spool Sander Required: No Allergies empagliflozin (From Jardiance) Adverse Reaction (Intermediate, Verified 02/24/25 10:43) Increased thirst/dehydration atorvastatin Adverse Reaction (Unknown, Verified 02/24/25 10:43) muscle cramps rosuvastatin (From Crestor) Adverse Reaction (Unknown, Verified 02/24/25 10:43) muscle cramps ezetimibe Adverse Reaction (Verified 02/24/25 10:43) swollen ankle metoprolol Adverse Reaction (Verified 02/24/25 10:43) elevated glucose zetia Allergy (Intermediate, Uncoded 02/24/25 10:43) Muscle Pain Medication List - Last Reconciled 02/24/25 by Anne Marie Miranda MD glipizide 5 mg PO QAM metformin 1,000 mg PO BID multivitamin 1 tab PO DAILY pravastatin 80 mg PO DAILY silicon dioxide (bulk) (Silica Gel powder) 130 ea miscellaneous DAILY Tobacco use date assessed: 02/24/25 Fall risk assessment: No Falls in past year Last assessed Fall Risk: 02/24/25 Dental Screening Dental Screen Date: 02/24/25 Did you have a dental visit in the last 12 months?: No Did you have a dental problem in the last 6 months where you did not have access to dental care?: No Was dental information given to patient?: Patient declined HPI annual exam - see comments HPI Details 69-year-old lady with history of diabete s mellitus with 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 She is up-to-date with her screening mammogram, last done 12/19/2024 with benign findings. Had a bone density scan same time which showed osteopenia in lumbar spine, left hip and left femur, no history of fractures. She is overdue for her colon cancer screening, last 1 [place] [address] Lopez, due for recheck last 2021 Has diabetes mellitus, currently on glipizide and metformin. latest hemoglobin A1c has gone from 7.6 to 8, attributed to poor dietary habits. She previously was on Trulicity and Jardiance, which patient could not tolerate due to the side effects of frequent urination and development of yeast infection. The patient also has mixed dyslipidemia, with a recent LDL cholesterol level of 127 mg/dL, . She has been on pravastatin, but previous statins like Crestor and Lipitor caused adverse effects such as gastrointestinal discomfort and myalgia. Current cigarette smoker, at least a pack a day, with no desire to quit at present time Osteopenia was identified in a bone density scan, with a T-score of -1.8 in the lower back and -1.9 in the left hip. 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 Mixed dyslipidemia Mild cognitive impairment Demyelinating disorder Migraine Anxiety disorder Erythrocytosis Polycythemia Osteopenia (~2005) Menopause Nicotine dependence, cigarettes, uncomplicated Obesity Vitamin D deficiency Adenoma of left adrenal gland Shoulder pain, right Tendinitis of left ankle Carpal tunnel syndrome Peroneal neuropathy Surgical History History of tonsillectomy History of colonoscopy History of lumbar puncture History of surgical removal of ganglion cyst Family History Father Cancer Mother Kidney failure Diabetes mellitus Elevated cholesterol Brother AIDS Sister Breast cancer Brother No problems noted. Sister No problems noted. Social History Housing: House Alcohol intake: current Patient Tobacco Use Status: Current everyday Tobacco user Cigarette Packs Per Day: 1 Years Smoked: (onset 22yo, 1ppd x 45yrs, 45pyh) e-Cigarette/Vaping Use: Former Use service: No Current occupational status: retired Current occupation: lt handed Cognitive needs: No Hearing needs: No Vision needs: Yes Questionnaire PHQ-9 Over the last 2 weeks, how often have you been bothered by any of the following problems? 1. Little interest or pleasure in doing things: not at all 2. Feeling down, depressed, or hopeless: not at all 3. Trouble falling or staying asleep, or sleeping too much: not at all 4. Feeling tired or having little energy: not at all 5. Poor appetite or overeating: not at all 6. Feeling bad about yourself - or that you are a failure or have let yourself or your family down: not at all 7. Trouble concentrating on things, such as reading the newspaper or watching television: not at all 8. Moving or speaking so slowly that other people could have noticed. Or the opposite - being so fidgety or restless that you have been moving around a lot more than usual: not at all 9. Thoughts that you would be better off or of hurting yourself in some way: not at all Total score: 0 Depression Screening Interpretation: Negative Depression Screening Done: Yes Source: Developed by Drs. Jesus Cooper, Carly Cochran, Cuba Hannah and colleagues, with an educational raisa from [employer]. Thrive Questionnaire Date Thrive assessed: 08/20/24 I am a: Patient What is your living situation today?: I have a steady place to live Within the past 12 months, did the food you bought not last and you didn't have the money to get more?: Never true Within the past 12 months, did you worry whether your food would run out before you got money to buy more?: Never true Do you have trouble paying for medicines?: No Do you have trouble getting transportation to medical appointments?: No Do you have trouble paying your heating and electricity bill?: No Do you have trouble taking care of your child, family member or friend?: No Do you have trouble with day-to-day activities such as bathing, preparing meals, shopping, managing finances, etc.?: No Are you currently unemployed and looking for a job?: I choose not to answer this question Are you interested in more education?: No Please select the resources that you would like help with: None Currently or been in a relationship where the following occur: No concerns reported THRIVE Score: 0 AUDIT C Alcohol Use Questionnaire (AUDIT-C) 3. How often do you have six or more drinks on one occasion?: Never Total Score: 0 DIDI-7 AMB Questionnaire DIDI-7 Date DIDI - 7 assessed: 07/05/24 Source: Developed by Drs. Jesus Cooper, Carly Cochran, Cuba Hannah and colleagues, with an educational raisa from [employer]. Review of Systems Const Reports no additional complaints Eyes Details: Up-to-date with her diabetes retinopathy screening, sees [place] Reports no additional complaints ENT Denies dizziness Card Denies chest pain, Denies syncope, Denies pedal edema, Denies lightheadedness and Denies dyspnea Resp Denies cough and Denies dyspnea GI Denies melena, Denies change in bowel habits and Denies change in stool character Reports no additional complaints Musc Denies muscle cramps, Denies muscle weakness and Denies tingling Skin/Breast Denies rash Neuro Denies dizziness, Denies syncope and Denies tingling Psych Reports no additional complaints Endo Reports no additional complaints Rodolfo/Lymph Reports no additional complaints Aller/Immun Reports no additional complaints Physical exam (Primary Care) Vital Signs: Last Vital Signs Temp 98.0 F 02/24/25 10:24 Pulse 97 02/24/25 10:24 BP 122/70 02/24/25 10:24 Pulse Ox 99 02/24/25 10:24 Oxygen Delivery Method Room Air 02/24/25 10:24 BMI result Body Mass Index 32.8 Tobacco/Smoking Status: Tobacco use Status Tobacco use date assessed 02/24/25 02/24/25 10:26 Patient Tobacco Use Status Current everyday Tobacco 02/24/25 10:26 e-Cigarette/Vaping Use Former Use 02/24/25 10:26 PHQ-9: PHQ-9 Score PHQ-9: Total score 0 02/24/25 10:45 Depression Screening Interpretation: Negative Thrive Assessment: Date of Thrive Assessment Date Thrive assessed 08/20/24 02/24/25 10:26 Currently or been in a relationship where the following occur: No concerns reported Const Other: Alert oriented x3, no acute distress noted, ambulatory normal gait General: no acute distress, alert, awake and Physically active Nutritional Appearance: obese HENMT Mouth: oropharynx normal and moist mucous membranes Eyes General: appearance normal, both eyes and all related structures Neck Other: Supple, no lymphadenopathy, no thyroid enlargement Chest Chest palpation & inspection: normal inspection of the chest Breast/axilla palpation: normal palpation of the breasts Resp Auscultation: clear to auscultation bilaterally Cardio Other: S1-S2 present regular rate and rhythm GI Other: Morbidly obese, Normal bowel sounds, soft, nontender, no mass palpated General: Yes no CVA tenderness Back/Spine/Pelvis Back: no CVA tenderness and No back tenderness Neuro General: gait normal, moves all extremities, Normal light touch and pain sensation and no focal motor deficits Extrem General: Yes full ROM Psych Appearance: grossly normal Mental Status: mental status grossly normal Speech and movement: Normal speech and movement present Affect: normal affect Results Reviewed Results Reviewed: Name: Claude Ngo Age/Sex: 69/F : 1955 Unit#: [id number] Attend Dr: Anne Marie Miranda MD Re02/21/25 Status: DEP [facility] Dis[facility]: SPEC : [id number] KAYLYN: 02/21/25 STATUS: COMP REQ : [id number] RECD: 02/21/[address]: Anne Marie Miranda MD COMP: 02/21/25 ENTERED: 02/21/25 [facility] DR: ORDERED: Met Prof Fast, AST, ALT, Lipid Panel, Vitamin D 25-OH Test Result Flag Reference Sodium 139 135-145 mmol/L Potassium 4.2 3.3-5.1 mmol/L CL 102 96-108 mmol/L CO2 28 22-29 mmol/L Gap 13 12-20 BUN 8 L 9-16 mg/dL Creat 0.83 0.5-1.4 mg/dL eGFR > 60 Chronic Kidney Disease: Estimated GFR < 60 mL/min/1.73m2 Severe Kidney Disease: Estimated GFR < 15 mL/min/1.73m2 FBS 172 H 60-99 mg/dL A fasting glucose of 126 mg/dl or greater on more than one occasion is considered diagnostic of diabetes. CA 9.3 8.4-10.2 mg/dL AST (GOT) 16 5-31 U/L ALT (GPT) 16 0-31 U/L Triglyceride 197 H <150 mg/dL Desirable Triglyceride: less than 150 mg/dL Borderline High Triglyceride 150-199 mg/dL High Triglyceride: 200-499 mg/dL Very High Triglyceride: greater than or equal to 5OO mg/dL Cholesterol 196 <200 mg/dL Desirable Cholesterol: less than 200 mg/dL Borderline High Cholesterol: 200-239 mg/dL High Cholesterol: greater than 239 mg/dL LDL Calculated 127 H <100 mg/dL Desirable LDL: less than 100 mg/dL Near Optimal/Above Optimal LDL: 110-129 mg/dL Borderline High LDL: 130-159 mg/dL High LDL: 160-189 mg/dL Very High LDL: greater than or equal to 190 mg/dL HDL 30 L >40 mg/dL Desirable HDL: greater than 40 mg/dL Note: This HDL assay may give artificially low results in patients with liver disease. Vitamin D 25-OH 56.8 >30 ng/mL Health Based Reference Values* < 20 ng/mL Deficient 20-30 ng/mL Insufficient > 30 ng/mL Sufficient Laboratory Tests 08/13/24 02/21/25 07:32 07:37 Estimat Average Glucose 183 Hemoglobin A1c % 8.0 H Urine Creatinine 40.13 Urine Microalbumin 6.0 Microalb/Creat Ratio 14.9 Coding Level of Care Code Est Pt Prev Care >65y(41568) Diagnoses Annual visit for general adult medical examination with abnormal findings Z00. 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 Recommended dental visit every 6 months and continued yearly eye exam , goes to [facility].. Take adequate calcium in diet and vitamin-D 3 at 2000 IU per cap once a day, in addition to weight-bearing exercises to help maintain good muscle tone and weight control. Instructed to do self-breast exam, and recommended to get yearly mammogram. Colon cancer screening again due this year, Cologuard ordered. Up-to-date with her screening mammogram and bone density scan. 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 Reinforced importance of following diabetic diet and getting regular exercise at least 15 minutes of moderate intensity exercise daily. See her back for follow-up in 3 months (3) Mixed dyslipidemia: Code(s): E78.2 - Mixed hyperlipidemia Category: Medical Plan: Reviewed recent fasting lipid profile with patient with LDL cholesterol not at goal of less than 100 mg/dL . Continue pravastatin 80 mg daily, , in addition to adherence to low-cholesterol diet and regular exercise, at least 30 minutes 3 to 4 times a week. Advised patient to make healthy food choices, eat more fruits, vegetables, whole grains, wild caught fish and low-fat dairy. Limit amount of meat and fried or fatty food products, as well as processed foods and fast foods. Follow-up scheduled with repeat fasting lipid panel in 3 months. (4) Obesity: Code(s): E66.9 - Obesity, unspecified Category: Medical Plan: Discussed need to increase activity and weight reduction. Recommended focusing on improving health instead of dieting. Mediterranean diet is a healthy diet that helps, limit food high in fat, sugar, and calories. Eat slowly, pay attention to portion sizes, plan your meals ahead of time, start regular physical activity, at least 150 minutes of moderate intensity exercise (5) Osteopenia: Onset Date: ~2005 Comment: (Bone Dexa Lumbar T-score: -1.1 on 09/16/05; -3.0 on 10/23/20; -2.1 on 10/27/22, - 1.8 on 12/19/24) Code(s): M85.80 - Other specified disorders of bone density and structure, unspecified site Category: Medical Qualifiers: Osteopenia location: multiple sites Qualified Code(s): M85.89 - Other specified disorders of bone density and structure, multiple sites Plan: Encouraged to do regular weight-bearing exercise, smoking cessation strongly advised, advised to take [id number] vitamin-D 3 supplements at least 2000 units daily and take adequate calcium from dietary sources. He had another bone density scan in 2026 (6) Erythrocytosis: Comment: Likely due to continued smoking, followed by hematology phlebotomy every 3 months Code(s): D75.1 - Secondary polycythemia Category: Medical Plan: Likely due to cigarette smoking currently followed by Dr. Saldana, gets phlebotomy every 3 months. Patient has been enrolled in the lung cancer screening program Orders: Orders Hemoglobin A1c 3 Months D75.1 - Secondary polycythemia, E11.3293 - Type 2 diabetes mellitus with mild nonproliferative diabetic retinopathy without macular edema, bilateral, E55.9 - Vitamin D deficiency, unspecified, E66.9 - Obesity, unspecified, E78.2 - Mixed hyperlipidemia, M85.89 - Other specified disorders of bone density and structure, multiple sites, Z00.01 - Encounter for general adult medical examination with abnormal findings, Z78.0 - Asymptomatic menopausal state Microalbumin, Random (w Creat) 3 Months D75.1 - Secondary polycythemia, E11.3293 - Type 2 diabetes mellitus with mild nonproliferative diabetic retinopathy without macular edema, bilateral, E55.9 - Vitamin D deficiency, unspecified, E66.9 - Obesity, unspecified, E78.2 - Mixed hyperlipidemia, M85.89 - Other specified disorders of bone density and structure, multiple sites, Z00.01 - Encounter for general adult medical examination with abnormal findings, Z78.0 - Asymptomatic menopausal state Lipid Panel 3 Months D75.1 - Secondary polycythemia, E11.3293 - Type 2 diabetes mellitus with mild nonproliferative diabetic retinopathy without macular edema, bilateral, E55.9 - Vitamin D deficiency, unspecified, E66.9 - Obesity, unspecified, E78.2 - Mixed hyperlipidemia, M85.89 - Other specified disorders of bone density and structure, multiple sites, Z00.01 - Encounter for general adult medical examination with abnormal findings, Z78.0 - Asymptomatic menopausal state Basic Metabolic Panel Fasting 3 Months D75.1 - Secondary polycythemia, E11.3293 - Type 2 diabetes mellitus with mild nonproliferative diabetic retinopathy without macular edema, bilateral, E55.9 - Vitamin D deficiency, unspecified, E66.9 - Obesity, unspecified, E78.2 - Mixed hyperlipidemia, M85.89 - Other specified disorders of bone density and structure, multiple sites, Z00.01 - Encounter for general adult medical examination with abnormal findings, Z78.0 - Asymptomatic menopausal state Aspartate Amino Transferase 3 Months D75.1 - Secondary polycythemia, E11.3293 - Type 2 diabetes mellitus with mild nonproliferative diabetic retinopathy without macular edema, bilateral, E55.9 - Vitamin D deficiency, unspecified, E66.9 - Obesity, unspecified, E78.2 - Mixed hyperlipidemia, M85.89 - Other specified disorders of bone density and structure, multiple sites, Z00.01 - Encounter for general adult medical examination with abnormal findings, Z78.0 - Asymptomatic menopausal state Alanine Aminotransferase 3 Months D75.1 - Secondary polycythemia, E11.3293 - Type 2 diabetes mellitus with mild nonproliferative diabetic retinopathy without macular edema, bilateral, E55.9 - Vitamin D deficiency, unspecified, E66.9 - Obesity, unspecified, E78.2 - Mixed hyperlipidemia, M85.89 - Other specified disorders of bone density and structure, multiple sites, Z00.01 - Encounter for general adult medical examination with abnormal findings, Z78.0 - Asymptomatic menopausal state Vitamin D 25-OH Total 3 Months D75.1 - Secondary polycythemia, E11.3293 - Type 2 diabetes mellitus with mild nonproliferative diabetic retinopathy without macular edema, bilateral, E55.9 - Vitamin D deficiency, unspecified, E66.9 - Obesity, unspecified, E78.2 - Mixed hyperlipidemia, M85.89 - Other specified disorders of bone density and structure, multiple sites, Z00.01 - Encounter for general adult medical examination with abnormal findings, Z78.0 - Asymptomatic menopausal state Referrals Cologuard Test Z12.11 - Encounter for screening for malignant neoplasm of colon, Z12.12 - Encounter for screening for malignant neoplasm of rectum Medications: Changed From glipizide 5 mg PO QAM 90 tabs 1RF E11.3293 - Type 2 diabetes mellitus with mild nonproliferative diabetic retinopathy without macular edema, bilateral To glipizide orally 2 times a day; 135 tabs 1RF 3 months E11.3293 - Type 2 diabetes mellitus with mild nonproliferative diabetic retinopathy without macular edema, bilateral
== END 2025-02-24 11:05 | disposition home or self-care (01) ==
LOC: HO.HMCC 10:14
PROVIDERS: PCP Internal Medicine; Visit Provider Internal Medicine
DX: Z00.01 Encounter for general adult medical examination with abnormal findings (principal); E11.3293 Type 2 diabetes mellitus with mild nonproliferative diabetic retinopathy without macular edema, bilateral; E66.9 Obesity, unspecified; Z68.32 Body mass index [BMI] 32.0-32.9, adult; E78.2 Mixed hyperlipidemia; M85.89 Other specified disorders of bone density and structure, multiple sites; D75.1 Secondary polycythemia

== ENCOUNTER → 2025-02-24 10:13 | Outpatient (BNVA) | payer MEDICARE, SELFPAY | PROVIDERS: PCP Internal Medicine; Visit Provider Internal Medicine | DX: Z00.01 Encounter for general adult medical examination with abnormal findings (principal); E78.2 Mixed hyperlipidemia; E11.3293 Type 2 diabetes mellitus with mild nonproliferative diabetic retinopathy without macular edema, bilateral; E66.9 Obesity, unspecified; M85.89 Other specified disorders of bone density and structure, multiple sites; D75.1 Secondary polycythemia; F17.210 Nicotine dependence, cigarettes, uncomplicated; Z68.32 Body mass index [BMI] 32.0-32.9, adult | CPT/HCPCS: 96127; 99397 ==

== ENCOUNTER 2025-03-06 13:50 | Outpatient (REF) | payer MEDICARE, SELFPAY ==
--- OUTSIDE RECORDS SUMMARY | 2025-03-06 17:46 | XMS_ITS | Patient Health Record ---
Author Organization [facility] Address [address] [place] [address] Care Team Providers Care Supervisor Keymodule Assembly Name Role Phone Rosa Maria Antoine NP Primary Care Provider U Jesus Haney Unavailable [phone] Allergies Allergen (clinical drug ingredient) Drug/Non Drug Allergy documented on EMR Reaction Allergy Type Onset Date Status Substance with 5-gdeemot-7-methylgluta ryl-coenzyme A reductase inhibitor mechanism of action [...] Insured Coverage Start Date Coverage End Date [facility] [address] [place] [address] [phone] [id number] JAQUI VAUGHAN Self - patient is the insured Medical (General) History Medical History History ICD Code Migraines Encephalitis in her 20's- ? of demyelinating disease in right side of her brain-seen by Dr. Cheng Denies RI,DM,CVA,Lung disease,renal dise ase Hyperlipidemia
== END 2025-03-06 13:51 | disposition home or self-care (01) ==
LOC: HO.BBR 13:50
PROVIDERS: Visit Provider Internal Medicine Medical Oncology
DX: D75.1 Secondary polycythemia (principal)
CPT/HCPCS: 85018; 99195

== ENCOUNTER 2025-03-20 09:24 | Outpatient (REF) | payer MEDICARE, SELFPAY ==
--- NOTE | ~2025-03-20 | CT_ITS ---
CLINICAL HISTORY: F17.210 - Nicotine dependence, cigarettes, uncomplicated CT lung cancer screening (LDCT) Comparison: CT/REG/OK/SR - CT LUNG SCREENING - 02/22/24 08:[address]/OK/SR - CT LUNG SCREENING - 02/17/23 13:34 EDT Technique: Axial CT images of the chest using low-dose technique. Referring provider counseled the patient on shared decision-making for LDCT screening. Additional counseling was provided on smoking cessation. Effective radiation dose total: DLP 42 mGycm, CTDIvol 1.3 mGy. Findings: Mild pulmonary emphysema. Scattered subsegmental atelectasis and/or scarring. Mosaic attenuation in the lungs indicative of small vessel or small airway disease. No suspicious pulmonary nodules or masses. It is difficult to evaluate for coronary artery atherosclerotic vascular calcifications due to cardiac motion. Atherosclerotic vascular calcifications of the thoracic aorta. Other: None IMPRESSION: No suspicious pulmonary nodules or masses. LungRADS 1: Negative exam. Continue annual screening with low dose Chest CT in 12 months. ##L1# This document has been electronically signed by: Timoteo Conteh DO on 03/21/2025 09:14:40
--- OUTSIDE RECORDS SUMMARY | 2025-03-20 10:27 | XMS_ITS | Patient Health Record ---
Author Organization [facility] Address [address] [place] [address] Care Team Providers Care Sheet Metal Worker Maintenance Name Role Phone Rosa Maria Antoine NP Primary Care Provider U Jesus Haney Unavailable [phone] Allergies Allergen (clinical drug ingredient) Drug/Non Drug Allergy documented on EMR Reaction Allergy Type Onset Date Status Substance with 1-bqkvyqs-2-methylgluta ryl-coenzyme A reductase inhibitor mechanism of action [...] Insured Coverage Start Date Coverage End Date [facility] [address] [place] [address] [id number] JAQUI VAUGHAN Self - patient is the insured Medical (General) History Medical History History ICD Code Migraines Encephalitis in her 20's- ? of demyelinating disease in right side of her brain-seen by Dr. Cheng Denies AK,DM,CVA,Lung disease,renal dise ase Hyperlipidemia
== END 2025-03-20 09:25 | disposition home or self-care (01) ==
LOC: HO.CT 09:24
PROVIDERS: PCP Internal Medicine; Visit Provider Physician Assistant Medical
DX: Z12.2 Encounter for screening for malignant neoplasm of respiratory organs (principal); F17.210 Nicotine dependence, cigarettes, uncomplicated
CPT/HCPCS: 71271

== ENCOUNTER → 2025-03-20 09:25 | Outpatient (BNV) | payer MEDICARE, SELFPAY | PROVIDERS: PCP Internal Medicine; Visit Provider Family Medicine | DX: Z12.2 Encounter for screening for malignant neoplasm of respiratory organs (principal); Z87.891 Personal history of nicotine dependence | CPT/HCPCS: 71271 ==